=== PATIENT | female | born 1950 | race Caucasian/White ===

== ENCOUNTER → 2018-04-02 12:43 | Outpatient (CLI) | payer OTHER, SELFPAY | PROVIDERS: Family Provider Family Medicine; PCP Family Medicine; Visit Provider Family Medicine | DX: Z13.820 Encounter for screening for osteoporosis (principal); Z78.0 Asymptomatic menopausal state; M17.0 Bilateral primary osteoarthritis of knee; E11.9 Type 2 diabetes mellitus without complications; M06.9 Rheumatoid arthritis, unspecified | CPT/HCPCS: 77080 ==

== ENCOUNTER → 2018-05-25 13:48 | Outpatient (CLI) | payer OTHER, SELFPAY ==
[2018-05-25 14:36] LABS: Cholesterol 161 mg/dL (140-199); HDL Cholesterol 43 mg/dL (40-60); LDL Cholesterol Calculated 54 mg/dL (<100); Triglycerides 318 mg/dL (35-150)
== END ==
PROVIDERS: PCP Student in an Organized Health Care Education/Training Program; Visit Provider Student in an Organized Health Care Education/Training Program
DX: E11.42 Type 2 diabetes mellitus with diabetic polyneuropathy (principal)
CPT/HCPCS: 36415; 80061

== ENCOUNTER → 2018-08-25 11:24 | Outpatient (CLI) | payer OTHER, SELFPAY ==
[2018-08-25 12:48] LABS: Hemoglobin A1C% w Est Avg Glu 7.4 % (4.0-6.0)
[2018-08-25 17:20] LABS: Creatinine Urine Random 96.8 mg/dL
[2018-08-25 17:26] LABS: Microalbumi Creatinin Ratio Ur 53.7 ug/mg CR (<30); Microalbumin Urine Random 5.2 mg/dL (0-1.6)
[2018-08-25 17:37] LABS: Vitamin D 25 Hydroxy (D3) 22.4 ng/mL (30.0-100.0)
== END ==
PROVIDERS: PCP Student in an Organized Health Care Education/Training Program; Visit Provider Student in an Organized Health Care Education/Training Program
DX: E55.9 Vitamin D deficiency, unspecified (principal); E11.42 Type 2 diabetes mellitus with diabetic polyneuropathy
CPT/HCPCS: 36415; 82043; 82306; 82570; 83036

== ENCOUNTER → 2019-02-24 10:43 | Outpatient (CLI) | payer OTHER, SELFPAY ==
--- NOTE | 2019-02-24 10:45 | DI.RAD.S_ITS ---
PROCEDURE: XR HIP W PEL IF DONE RT 2V INDICATIONS: right hip pain TECHNIQUE: AP pelvis with lateral view(s) of the right hip(s). COMPARISON: None. FINDINGS: Bones: No fractures or dislocations. Pelvic ring appears intact. No suspicious bony lesions. Lower lumbar spondylosis. Moderate right hip joint degeneration, mild left hip joint degeneration. Soft tissues: The visualized bowel gas pattern is normal. No suspicious soft tissue calcifications. IMPRESSION: Moderate right hip degeneration. Dictated by: Ronnell Ding M.D. on 02/24/2019 at 13:43 Approved by: Ronnell Ding M.D. on 02/24/2019 at 13:45
== END ==
PROVIDERS: PCP Student in an Organized Health Care Education/Training Program; Visit Provider Student in an Organized Health Care Education/Training Program
DX: M25.551 Pain in right hip (principal); M16.11 Unilateral primary osteoarthritis, right hip
CPT/HCPCS: 73502

== ENCOUNTER → 2019-05-24 10:09 | Outpatient (CLI) | payer OTHER, SELFPAY ==
[2019-05-24 10:46] LABS: Hemoglobin A1C% w Est Avg Glu 7.7 % (4.0-6.0)
== END ==
PROVIDERS: PCP Student in an Organized Health Care Education/Training Program; Visit Provider Student in an Organized Health Care Education/Training Program
DX: E11.42 Type 2 diabetes mellitus with diabetic polyneuropathy (principal)
CPT/HCPCS: 36415; 83036

== ENCOUNTER → 2019-08-23 11:12 | Outpatient (CLI) | payer MEDICARE, SELFPAY ==
[2019-08-23 13:02] LABS: Hemoglobin A1C% w Est Avg Glu 8.5 % (4.0-6.0)
[2019-08-23 13:22] LABS: Blood Urea Nitrogen 29 mg/dL (7-17); Calcium 9.6 mg/dL (8.4-10.2); Carbon Dioxide 27 mmol/L (22-32); Chloride 97 mmol/L (98-107); Estimated Glomerular Filt Rate 55.3 mL/min (>60); Glucose 265 mg/dL (80-110); HEMOLYSIS < 15 (0-50); Potassium 4.8 mmol/L (3.4-5.1); Sodium 136 mmol/L (137-145)
== END ==
PROVIDERS: PCP Student in an Organized Health Care Education/Training Program; Referring Provider Student in an Organized Health Care Education/Training Program; Visit Provider Student in an Organized Health Care Education/Training Program
DX: E11.42 Type 2 diabetes mellitus with diabetic polyneuropathy (principal)
CPT/HCPCS: 36415; 80048; 83036

== ENCOUNTER → 2019-11-25 13:37 | Outpatient (CLI) | payer MEDICARE, SELFPAY ==
[2019-11-25 14:18] LABS: Hemoglobin A1C% w Est Avg Glu 7.7 % (4.0-6.0)
[2019-11-25 14:47] LABS: BUN Creatinine Ratio 33.3 (6-22); Blood Urea Nitrogen 40 mg/dL (7-17); Estimated Glomerular Filt Rate 44.8 mL/min (>60)
== END ==
PROVIDERS: PCP Student in an Organized Health Care Education/Training Program; Referring Provider Student in an Organized Health Care Education/Training Program; Visit Provider Student in an Organized Health Care Education/Training Program
DX: E11.21 Type 2 diabetes mellitus with diabetic nephropathy (principal); E11.42 Type 2 diabetes mellitus with diabetic polyneuropathy; E11.51 Type 2 diabetes mellitus with diabetic peripheral angiopathy without gangrene
CPT/HCPCS: 82565; 83036; 84520

== ENCOUNTER 2019-12-13 11:17 | Emergency (ER) | payer MEDICARE, SELFPAY ==
[2019-12-13 11:26] VITALS: BP 150/68; PULSE 75; RESP 14; TEMP 36.4; O2SAT 97
--- NOTE | 2019-12-13 18:50 | ED.NEUROSD ---
HPI - Neuro Symptoms/Deficit General Chief Complaint: Neuro Symptoms/Deficit Stated Complaint: droopy right face,pain left ear,lisp Time Seen by Provider: 12/13/19 11:18 Source: patient Mode of arrival: Ambulatory Limitations: no limitations History of Present Illness HPI Narrative: 69-year-old female never smoker with history of diabetes and morbid obesity presents with her daughter and a chief complaint of left-sided facial weakness with associated slurring of speech for the past 2 days. She denies any other focal neurologic complaints such as blurred vision, trouble with balance, numbness, weakness or tingling of her extremities. She denies any recent illness nor injury. She denies chest pain or shortness of breath. She denies nausea, vomiting or diarrhea. Onset (ago): day(s) Timing confirmed by: family member Location: speech and left face History of same: No Severity: mild Quality: numb and constant Relieving factors: none Exacerbating factors: none Context: gradual onset On Anticoagulants: No Associated symptoms: denies other symptoms Treatments Prior to Arrival: none Related Data Home Medications Medication Instructions Recorded Confirmed naproxen sodium 220 mg tablet 440 mg PO BEDTIME PRN tab 02/24/19 11/25/19 insulin lispro sliding scale SUBCUT 08/23/19 11/25/19 aspirin 81 mg tablet,delayed 81 mg PO DAILY 08/25/19 11/25/19 release Previous Rx's Medication Instructions Recorded omeprazole 20 mg capsule,delayed 20 mg PO Q DAY #90 cap 01/29/19 release sertraline 100 mg tablet 100 mg PO QDAY #90 tab 01/29/19 simvastatin 40 mg tablet 40 mg PO HS #90 tab 01/29/19 insulin lispro 100 unit/mL 30 unit SUBCUT QAC #30 day 02/10/19 subcutaneous pen metformin 850 mg tablet 850 mg PO BID #180 tab 04/18/19 metoprolol tartrate 50 mg tablet 50 mg PO BID #180 tab 05/24/19 losartan 100 1 tab PO QDAY #90 tab 06/02/19 mg-hydrochlorothiazide 25 mg tablet Basaglar pen needles #100 each 07/18/19 One Touch Ultra test strips #100 each 07/19/19 insulin NPH isoph U-100 human 100 See Rx Instructions SUBCUT BID #15 09/27/19 unit/mL (3 mL) subcutaneous pen ml gabapentin 300 mg capsule 600 mg PO TID #180 cap 11/14/19 albuterol sulfate 90 mcg/actuation 2 puff INHALATION Q4-6H PRN #6.7 11/25/19 aerosol inhaler gram prednisone See Rx Instructions .ROUTE 12/13/19 .COMPLEX #30 tab Allergies Allergy/AdvReac Type Severity Reaction Status Date / Time AMANUEL Inhibitors Allergy Mild Cough Verified 11/25/19 13:01 [AMANUEL INHIBITORS] cat dander [CAT DANDER] Allergy Unknown Verified 11/25/19 13:01 dog dander [DOG DANDER] Allergy Unknown Verified 11/25/19 13:01 Review of Systems Constitutional Constitutional: Denies chills, Denies fatigue, Denies fever(s), Denies frequent falls, Denies lethargy and Denies weakness Eyes Eyes: Denies change in vision, Denies eye discharge, Denies irritation and Denies loss of vision ENT Ears, Nose, Mouth, and Throat: Denies change in voice, Denies dizziness, Denies neck pain, Denies sore throat and Denies throat swelling Cardiovascular Cardiovascular: Denies chest pain, Denies irregular heart rhythm, Denies lightheadedness, Denies palpitations, Denies dyspnea, Denies dyspnea on exertion and Denies orthopnea Respiratory Respiratory: Denies cough, Denies dyspnea, Denies dyspnea on exertion and Denies wheezing Gastrointestinal Gastrointestinal: Denies abdominal pain, Denies change in bowel habits, Denies diarrhea, Denies nausea and Denies vomiting Genitourinary Genitourinary: Denies hematuria, Denies flank pain, Denies urinary incontinence and Denies urinary urgency Musculoskeletal Musculoskeletal: Denies back pain, Denies muscle weakness, Denies neck pain, Reports numbness and Reports tingling Integumentary/Breasts Skin/Breast: Denies pruritus, Denies erythema, Denies rash and Denies wounds Neurologic Neurologic: Denies behavioral changes, Denies confusion, Denies dizziness, Denies frequent falls, Reports focal weakness, Denies loss of vision, Reports numbness, Reports tingling and Denies weakness Psychiatric Psychiatric: Denies anxiety, Denies behavioral changes, Denies confusion, Denies depression, Denies homicidal ideation and Denies suicidal ideation Endocrine Endocrine: Denies fatigue, Denies flushing and Denies palpitations Hematologic/Lymphatic Hematologic/Lymphatic: Denies easy bruising Allergic/Immunologic Allergic/Immunologic: Denies urticaria, Denies throat swelling and Denies wheezing Patient History Medical History (Updated 12/13/19 @ 11:28 by Reyes Nolasco DO) Anemia (Chronic) Ankle pain (Chronic) Anxiety (Chronic) Asthma (Chronic) Astigmatism, bilateral (Chronic) Bronchitis (Resolved) Cataracts, bilateral (Chronic) Chicken pox (Resolved) Chronic back pain (Chronic) Colon polyps (Resolved 2012) Constipation (Chronic) Depression (Chronic) Diabetes mellitus (Chronic) DVT (deep venous thrombosis) (Resolved) Foot pain (Chronic) GERD (gastroesophageal reflux disease) (Chronic) Hearing loss (Chronic ~2016) Hyperlipidemia (Chronic) Hypertension (Chronic) Migraines (Chronic) Mumps (Resolved) Obesity (Chronic) Osteoarthritis (Chronic) Otitis externa (Resolved) Pernicious anemia (Chronic) Post traumatic stress disorder (PTSD) (Chronic) Presbyopia (Chronic) Recurrent sinusitis (Resolved) Right knee pain (Chronic) RLS (restless legs syndrome) (Chronic) Sleep apnea (Chronic) Synovial cyst of popliteal space [Mancera], left knee (Chronic) Vertigo (Chronic) Vision disorder (Chronic) Surgical History (Updated 05/27/18 @ 21:50 by Lisa Moss) History of arthroscopy of left knee (Resolved) History of colonoscopy with polypectomy (Resolved 03/09/13) History of colonoscopy with polypectomy (Resolved 11/04/16) History of hysterectomy (Resolved ~1993) Status post epidural steroid injection (Resolved 06/23/16) Status post epidural steroid injection (Resolved 01/12/12) Status post epidural steroid injection (Resolved 02/20/12) Family History (Updated 05/27/18 @ 21:48 by Lisa Moss) Mother Diabetes mellitus Heart disease Hyperlipidemia Hypertension Sister Diabetes mellitus Heart disease Hyperlipidemia Hypertension Mental health problem Social History Smoking Status: Never smoker Smoking Status: Never smoker Substance Use Type: does not use Exam Narrative Exam Narrative: GENERAL: [69] year old patient appears stated age. Well-nourished, well-developed patient, in mild distress. HEAD: Atraumatic. Normocephalic. EYES: Pupils equal round and reactive. Extraocular motions intact. No scleral icterus. No injection or drainage. ENT: Nose without bleeding, purulent drainage. Throat without erythema, tonsillar hypertrophy or exudate. Airway patent. Tenderness to palpation of left mastoid NECK: Trachea midline. Non tender CARDIOVASCULAR: Regular rate and rhythm without murmurs, gallops, or rubs. RESPIRATORY: Clear to auscultation. Breath sounds equal bilaterally. No wheezes, rales, or rhonchi. GASTROINTESTINAL: Abdomen soft, non-tender, nondistended. EXTREMITIES: No edema or joint tenderness. BACK: Nontender without deformity or crepitance. No flank tenderness. NEURO: AOx3. SKIN: No rash or erythema of visible areas Initial Vital Signs Initial Vital Signs: Vital Signs Temperature 97.6 F 12/13/19 11:26 Pulse Rate 75 12/13/19 11:26 Respiratory Rate 14 12/13/19 11:26 Blood Pressure 150/68 H 12/13/19 11:26 Pulse Oximetry 97 12/13/19 11:26 Scores NIH Stroke Scale Level of Conciousness: Alert, keenly responsive Ask month/age: Answers both questions correctly. Open/close eyes, close hand: Performs both tasks correctly Best gaze horizontal: Normal Visual magaña: No visual loss Facial palsy: Complete paralysis, absence of movement in the upper and lower face Left arm drift: No drift for full 10 sec Right arm drift: No drift for full 10 sec Left leg drift: No drift for full 10 sec Right leg drift: No drift for full 10 sec Limb ataxia: Absent Sensory on face/arms/legs: Normal, no sensory loss Best language: No aphasia, normal Dysarthria: Mild to mod,some slurring Extinction or inattention: No abnormality Total NIH Stroke scale score: 4 Course Vital Signs Vital signs: Vital Signs - 8 hr 12/13/19 11:26 Temperature 97.6 F Pulse Rate 75 Respiratory Rate 14 Blood Pressure 150/68 H Pulse Oximetry 97 MDM - Neuro Symptoms/Deficit [facility] Narrative Medical decision making narrative: Considerations include stroke vs. [place] vs. other. Left facial droop with involvement of forehead and periauricular pain. Lack of upper motor neuron findings. Discussed potential prison findings despite treatment. Return precautions given. Questions answered to her apparent satisfaction. Discharge Plan Departure Patient Disposition: Home Clinical Impression: Amos's palsy Discharge Date/Time: 12/13/19 11:42 Instructions: Amos Palsy Activity Restrictions/Additional Instructions: *You have been diagnosed with [facial complications of Amos's palsy] *What to do: *Take medications as directed: Prescription for steroid sent to [facility] in [place] *Follow up with your primary care provider in 2-3 days, call for an appointment. Let them know you were seen in the Emergency Department and that we ask that you be seen in follow up *Return to ER if you should have any new, worsening or concerning symptoms Prescriptions: New prednisone 10 mg tablet See Rx Instructions .ROUTE .COMPLEX Qty: 30 RF: 0 No Action sertraline [Zoloft] 100 mg tablet 100 mg PO QDAY Qty: 90 RF: 3 simvastatin [Zocor] 40 mg tablet 40 mg PO HS Qty: 90 RF: 3 omeprazole 20 mg capsule,delayed release(DR/EC) 20 mg PO Q DAY Qty: 90 RF: 3 insulin lispro [Humalog KwikPen Insulin] 100 unit/mL insulin pen 30 unit SUBCUT QAC Qty: 30 RF: 5 metformin 850 mg tablet 850 mg PO BID Qty: 180 RF: 3 losartan-hydrochlorothiazide 100-25 mg tablet 1 tab PO QDAY Qty: 90 RF: 3 (DME) Basaglar pen needles 31G X 8MM (11/25) See Rx Instructions .Route .MEDSUPPLY Qty: 100 RF: 1 (DME) One Touch Ultra test strips Qty: 100 RF: 5 aspirin 81 mg tablet,delayed release (DR/EC) 81 mg PO DAILY RF: 0 Humulin N NPH Insulin KwikPen 100 unit/mL (3 mL) insulin pen See Rx Instructions SUBCUT BID Qty: 15 RF: 5 gabapentin [Neurontin] 300 mg capsule 600 mg PO TID Qty: 180 RF: 5 metoprolol tartrate 50 mg tablet 50 mg PO BID Qty: 180 RF: 3 insulin lispro sliding scale subcut RF: 0 albuterol sulfate [Proventil HFA] 90 mcg/actuation HFA aerosol inhaler 2 puff inhalation Q4-6H PRN (Reason: shortness of breath or wheezing) Qty: 6.7 RF: 11 naproxen sodium [Aleve] 220 mg tablet 440 mg PO BEDTIME PRNRF: 0 Referrals: Wilfredo Zazueta MD [Primary Care Provider] -
== END 2019-12-13 11:42 | disposition home or self-care (01) ==
PROVIDERS: Emergency Provider Emergency Medicine; PCP Student in an Organized Health Care Education/Training Program
DX: G51.0 Bell's palsy (principal)
CPT/HCPCS: 99281

== ENCOUNTER → 2020-02-14 13:24 | Outpatient (CLI) | payer MEDICARE, SELFPAY ==
[2020-02-14 14:50] LABS: Hematocrit 34.2 % (36-46); Hemoglobin 11.1 g/dL (12.0-16.0); Mean Corpuscular HGB Conc 32.6 % (30-36); Mean Corpuscular Hemoglobin 28.2 PG (26-34); Mean Corpuscular Volume 86.6 fL (80-100); Platelet Count 232 X10^3/uL (150-400); Red Blood Cell Count 3.95 X10^6/uL (4.0-5.2); Red Cell Distribution Width 15.9 % (11.6-14.8)
[2020-02-14 15:09] LABS: Hemoglobin A1C% w Est Avg Glu 6.5 % (4.0-6.0)
[2020-02-14 15:41] LABS: BUN Creatinine Ratio 32.1 (6-22); Blood Urea Nitrogen 35 mg/dL (7-17); Calcium 10.4 mg/dL (8.4-10.2); Carbon Dioxide 29 mmol/L (22-32); Chloride 99 mmol/L (98-107); Estimated Glomerular Filt Rate 49.9 mL/min (>60); Glucose 75 mg/dL (80-110); HEMOLYSIS < 15 (0-50); Potassium 5.1 mmol/L (3.4-5.1); Sodium 138 mmol/L (137-145)
[2020-02-14 15:42] LABS: Creatinine Urine Random 90.7 mg/dL
[2020-02-14 15:45] LABS: Microalbumi Creatinin Ratio Ur 41.8 ug/mg CR (<30); Microalbumin Urine Random 3.8 mg/dL (0-1.6)
[2020-02-14 15:56] LABS: Vitamin D 25 Hydroxy (D3) 24.3 ng/mL (30.0-100.0)
== END ==
PROVIDERS: PCP Student in an Organized Health Care Education/Training Program; Referring Provider Student in an Organized Health Care Education/Training Program; Visit Provider Student in an Organized Health Care Education/Training Program
DX: E11.21 Type 2 diabetes mellitus with diabetic nephropathy (principal); E11.42 Type 2 diabetes mellitus with diabetic polyneuropathy; I10 Essential (primary) hypertension
CPT/HCPCS: 36415; 80048; 82043; 82306; 82570; 83036; 85027

== ENCOUNTER → 2020-05-23 15:36 | Outpatient (CLI) | payer MEDICARE, SELFPAY ==
[2020-05-23 16:18] LABS: Hemoglobin A1C% w Est Avg Glu 7.2 % (4.0-6.0)
[2020-05-23 16:21] LABS: BUN Creatinine Ratio 26.4 (6-22); Blood Urea Nitrogen 29 mg/dL (7-17); Estimated Glomerular Filt Rate 49.4 mL/min (>60)
== END ==
PROVIDERS: PCP Student in an Organized Health Care Education/Training Program; Referring Provider Student in an Organized Health Care Education/Training Program; Visit Provider Student in an Organized Health Care Education/Training Program
DX: E11.21 Type 2 diabetes mellitus with diabetic nephropathy (principal); E11.42 Type 2 diabetes mellitus with diabetic polyneuropathy; E55.9 Vitamin D deficiency, unspecified
CPT/HCPCS: 36415; 82306; 82565; 83036; 84520

== ENCOUNTER → 2020-09-10 09:54 | Outpatient (CLI) | payer MEDICARE, SELFPAY ==
[2020-09-10 11:27] LABS: Hemoglobin A1C% w Est Avg Glu 6.7 % (4.0-6.0)
[2020-09-10 11:28] LABS: BUN Creatinine Ratio 27.7 (6-22); Blood Urea Nitrogen 31 mg/dL (7-17); Estimated Glomerular Filt Rate 48.4 mL/min (>60)
[2020-09-10 11:51] LABS: Vitamin D 25 Hydroxy (D3) 28.7 ng/mL (30.0-100.0)
== END ==
PROVIDERS: PCP Student in an Organized Health Care Education/Training Program; Referring Provider Student in an Organized Health Care Education/Training Program; Visit Provider Student in an Organized Health Care Education/Training Program
DX: E11.42 Type 2 diabetes mellitus with diabetic polyneuropathy (principal); N18.31 Chronic kidney disease, stage 3a; E55.9 Vitamin D deficiency, unspecified
CPT/HCPCS: 36415; 82306; 82565; 83036; 84520

== ENCOUNTER → 2020-12-17 11:12 | Outpatient (CLI) | payer MEDICARE, SELFPAY ==
--- NOTE | 2020-12-17 11:47 | DI.RAD.S_ITS ---
PROCEDURE: XR SHOULDER RT MIN 2V INDICATIONS: H/o remote injury, ongoing pain TECHNIQUE: 3 views of the shoulder were acquired. COMPARISON: None. FINDINGS: Bones: There are degenerative changes of the right acromioclavicular joint. Soft tissues: No suspicious soft tissue calcifications. IMPRESSION: Degenerative changes of the right acromioclavicular joint. No acute abnormality. Consider MRI if symptoms persist. Dictated by: Garrett Shepherd M.D. on 12/17/2020 at 12:26 Approved by: Garrett Shepherd M.D. on 12/17/2020 at 12:28
[2020-12-17 12:23] LABS: Add Manual Diff / Slide Review NO; Basophils Absolute Auto 0 /uL (0-100); Basophils Percent Auto 0.3 % (0-2); Eosinophils Absolute Auto 200 /uL (0-450); Eosinophils Percent Auto 3.9 % (2-4); Hematocrit 32.3 % (36-46); Hemoglobin 10.6 g/dL (12.0-16.0); Lymphocytes Absolute Auto 1200 /uL (1100-4500); Lymphocytes Percent Auto 22.2 % (25-40); Mean Corpuscular HGB Conc 32.9 % (30-36); Mean Corpuscular Hemoglobin 28.6 PG (26-34); Mean Corpuscular Volume 86.8 fL (80-100); Monocytes Absolute Auto 200 /uL (0-900); Monocytes Percent Auto 4.5 % (3-14); Neutrophils Absolute Auto 3800 /uL (1500-7000); Neutrophils Percent Auto 69.1 % (50-75); Platelet Count 203 X10^3/uL (150-400); Red Blood Cell Count 3.72 X10^6/uL (4.0-5.2); Red Cell Distribution Width 14.8 % (11.6-14.8); White Blood Cell Count 5.5 X10^3/uL (4.5-11.0)
[2020-12-17 12:38] LABS: BUN Creatinine Ratio 30.3 (6-22); Blood Urea Nitrogen 36 mg/dL (7-17); Estimated Glomerular Filt Rate 45.1 mL/min (>60)
[2020-12-17 13:20] LABS: TSH w/ Reflex to FT4 1.92 uIU/mL (0.47-4.68)
[2020-12-17 13:25] LABS: Vitamin B12 213 pg/mL (239-931)
[2020-12-17 15:36] LABS: Vitamin D 25 Hydroxy (D3) 35.6 ng/mL (30.0-100.0)
== END ==
PROVIDERS: PCP Student in an Organized Health Care Education/Training Program; Referring Provider Student in an Organized Health Care Education/Training Program; Visit Provider Student in an Organized Health Care Education/Training Program
DX: E11.42 Type 2 diabetes mellitus with diabetic polyneuropathy (principal); N18.31 Chronic kidney disease, stage 3a; R53.83 Other fatigue; E55.9 Vitamin D deficiency, unspecified; M12.811 Other specific arthropathies, not elsewhere classified, right shoulder
CPT/HCPCS: 36415; 73030; 82306; 82565; 82607; 83036; 84443; 84520; 85025

== ENCOUNTER → 2020-12-31 12:36 | Outpatient (CLI) | payer MEDICARE, SELFPAY ==
--- NOTE | 2020-12-31 12:37 | DI.US.S_ITS ---
LIMITED ULTRASOUND OF RIGHT BREAST AND AXILLA: 12/31/2020 CLINICAL: Palpable right breast lump. Comparison is made to exams dated: 12/31/2020 mammogram - [facility], 04/09/2017 mammogram, and 07/10/2011 mammogram - outside location. Color flow and real-time ultrasound of the right breast 9-10 o'clock, and axilla regions were performed on the areas of interest. There is a 3 cm x 2.8 cm x 2.3 cm oval mass with a microlobulated, angular, and spiculated margin in the right breast at 10 o'clock middle depth. This oval mass is hypoechoic with posterior acoustic shadowing. This correlates as palpated and with mammography findings. There are related micro calcifications. Color flow imaging demonstrates that there is vascularity present. No suspicious enlarged lymph nodes were seen sonographically in the right axilla. IMPRESSION: HIGHLY SUGGESTIVE OF MALIGNANCY The 3 cm x 2.8 cm x 2.3 cm oval mass in the right breast is highly suggestive of malignancy. An ultrasound guided biopsy is recommended. The findings were discussed with the patient by telephone at the conclusion of the study. This exam was interpreted at Station ID: [id number]. Electronically Signed By: Dereck Pringle M.D. ddadriel/:12/31/2020 16:00:52 letter sent: Biopsy Required Ultrasound BI-RADS: 5 Highly suggestive of malignancy
--- NOTE | 2020-12-31 12:37 | DI.MG.S_ITS ---
BILATERAL DIGITAL DIAGNOSTIC MAMMOGRAM 3D/2D: 12/31/2020 CLINICAL: Right mass. Comparison is made to exams dated: 04/09/2017 mammogram, 07/10/2011 mammogram, and 01/22/2010 mammogram - outside location. There are scattered fibroglandular elements in both breasts. There is a new 3.4 cm oval high density mass with a spiculated, indistinct, and microlobulated margin and grouped linear fine punctate calcifications in the right breast at 9 o'clock middle depth. There also is an oval fat containing lymph node with eccentric cortical thickening with an indistinct and circumscribed margin in the right axilla seen on the mediolateral oblique view only. No other significant masses, calcifications, or other findings are seen in either breast. IMPRESSION: INCOMPLETE: NEEDS ADDITIONAL IMAGING EVALUATION The new 3.4 cm oval high density mass in the right breast at 9 o'clock middle depth is indeterminate. An ultrasound is recommended. The oval fat containing lymph node with eccentric cortical thickening in the right axilla on seen on the mediolateral oblique view only is indeterminate. An ultrasound is recommended. Ultrasound will be performed immediately following the current exam. This exam was interpreted at Station ID: [id number]. NOTE: For mammograms, a report in lay terms will be sent to the patient. Approximately 15% of breast malignancies will not be visualized mammographically. In the management of a palpable breast mass, a negative mammogram must not discourage biopsy of a clinically suspicious lesion. Electronically Signed By: Dereck Pringle M.D. ddp/:12/31/2020 13:24:36 ACR BI-RADS Category 0: Incomplete [id number]
== END ==
PROVIDERS: PCP Student in an Organized Health Care Education/Training Program; Referring Provider Student in an Organized Health Care Education/Training Program; Visit Provider Student in an Organized Health Care Education/Training Program
DX: R92.8 Other abnormal and inconclusive findings on diagnostic imaging of breast (principal); N63.15 Unspecified lump in the right breast, overlapping quadrants; R92.1 Mammographic calcification found on diagnostic imaging of breast
CPT/HCPCS: 76642; 77066; G0279

== ENCOUNTER → 2021-01-11 14:03 | Outpatient (CLI) | payer MEDICARE, SELFPAY ==
--- NOTE | 2021-01-11 | PATH_ITS ---
[facility] Accession Number: [id number] . 01 Material submitted: . breast - RIGHT BREAST MASS 10:00 8CMFN . 02 Diagnosis: Right Breast Mass, 10 o'clock, 8 cm from Nipple, Image-Guided Needle Core Biopsy: Invasive carcinoma of the breast. . CASE SUMMARY: Procedure: Needle biopsy. Specimen laterality: Right. Tumor site: Upper outer quadrant (10 o'clock, 8 cm from nipple). Histologic type: Invasive carcinoma of no special type (ductal by e-cadherin immunohistochemistry). Histologic grade: Glandular: Score 3 of 3. Nuclear pleomorphism: Score 3 of 3. Mitotic rate: Score 3 of 3. Overall grade: Grade 3 / high grade. Tumor size: Greatest dimension of largest invasive focus greater than 1 mm: 4 mm. Ductal carcinoma in situ. Lymphovascular invasion: Not identified. Microcalcifications: No identified. Additional findings: Necrosis present. Breast biomarker studies: Please see microscopic description. V 01/17/2021 1207 Local . 02 Comment: As part of routine aircraft quality control inspector, this case was also reviewed by Dr. Antoine, who agrees with the interpretation. . Results discussed with Dr. Zazueta's triage nurse, Jeri, on 01-17-21 at approximately 10:41 a.m. . 02 Electronically signed: . Jenny Cho MD, Pathologist NPI- [id number] . 01 Gross description: . RIGHT BREAST MASS 10:00 8CMFN: Received in formalin are multiple fragment(s) of pack, soft tissue measuring 2.8 x 0.3 x 0.2 cm in aggregate submitted entirely in 1 cassette(s) /[facility] 01/14/2021 0923 Local . 02 Microscopic: . Immunohistochemical studies are performed to further evaluate the cells of interest. The control stains showed appropriate reactivity. . RESULTS: E-cadherin - Strongly positive, consistent with ductal differentiation. . Smooth muscle myosin: Absent in regions of interest. P63: Absent in regions of interest. . The absence of myosin and p63 in the regions of interest support the presence of invasive carcinoma at these foci. . . CAP BREAST BIOMARKER REPORTING TEMPLATE: . Estrogen Receptor (ER) Status: Negative (less than 1 %). Note: No internal controls are present in the biopsy, but external controls are appropriately positive. If needed, testing another specimen that contains internal controls may be warranted for confirmation of ER status. Average intensity of staining: Not applicable. Primary antibody: SP1 Progesterone Receptor (PgR) Status: Negative (less than 1 %). Average intensity of staining: Not applicable. Primary antibody: 1E2 HER2 (by immunohistochemistry): Negative at 0+. Percentage of cells with uniform intense complete membrane stainin%. Primary antibody: 4B5 . Cold Ischemia and Fixation Times: Meets requirements in the latest version of the ASCO/CAP guidelines. Testing performed on Block Number: . TECHNICAL NOTE: The scoring criteria for breast biomarkers by immunohistochemistry is based on the current ASCO/CAP guidelines (Deepak et al, Arch Pathol Lab Med 2010: 134(6): 907-922 / Basilia BARBER et al, Arch Pathol Lab Med 2014: 138(2):241-256). Deparaffinized sections of formalin fixed tissue (along with appropriate positive controls) are incubated with the above antibody(s). Using the automated Dozier stainer, tissue is incubated with the designated antibody* which is then localized by a non-biotin, dual polymer detection system. The external controls are reviewed for appropriate reactivity and found to be adequate. Results on the target cell population are indicated above. These tests have not been validated on decalcified tissue. * This test was developed and its performance characteristics determined by [employer]. It has not been cleared or approved by the U.S. Food and Drug Administration. The FDA has determined that such clearance or approval is not necessary. This test is used for clinical purposes. It should not be regarded as investigational or for research. . 02 Pathologist provided ICD-10: C50.911 . 02 CPT . 183818, 961229, 275032, 097901, W99630, D36310 Performed at: 01 [facility] [address] [place] [address], [place], [place] [id number] MD Dereck Alejo MD Phone: [phone] Performed at: [address] [facility] [id number] [place], [place] [id number] MD Jory Antoine MD Phone: [phone]
--- NOTE | 2021-01-11 | DI.MG.S_ITS ---
UNILATERAL RIGHT DIGITAL DIAGNOSTIC MAMMOGRAM 3D/2D: 01/11/2021 CLINICAL: Right post clip. Comparison is made to exams dated: 12/31/2020 ultrasound, 12/31/2020 mammogram - [facility], and 04/09/2017 mammogram - outside location. There are scattered fibroglandular elements in right breast. There is a marker clip in the appropriate position in the right breast at 10 o'clock .This marker clip placement is at the biopsy site. IMPRESSION: POST PROCEDURE MAMMOGRAM FOR MARKER PLACEMENT There was a successful marker clip placement in the right breast This exam was interpreted at Station ID: [id number]. NOTE: For mammograms, a report in lay terms will be sent to the patient. Approximately 15% of breast malignancies will not be visualized mammographically. In the management of a palpable breast mass, a negative mammogram must not discourage biopsy of a clinically suspicious lesion. Electronically Signed By: Ronnell rosenthal/:01/11/2021 16:24:32 ACR BI-RADS Category Post-procedure mammogram for marker placement
--- NOTE | 2021-01-11 14:22 | DI.US.S_ITS ---
At the request of: SUKH COBB Procedure: US bx breast perc w vac device ULTRASOUND GUIDED BIOPSY RIGHT BREAST USING VACUUM DEVICE WITH MARKING DEVICE INSERTED: 01/11/2021 CLINICAL: Right breast mass. PATIENT CONSENT: Risks (minor bleeding, infection, vasovagal reaction and repeat procedure), benefits and alternatives were explained to the patient and written informed consent was obtained. Correlation is made to exams dated: 12/31/2020 ultrasound, 12/31/2020 mammogram - [facility], 04/09/2017 mammogram, 07/10/2011 mammogram, and 01/22/2010 mammogram - outside location. An ultrasound guided biopsy using real-time ultrasound was performed for the mass located in the right breast at 10 o'clock middle depth. The skin was prepped in the usual manner. Local anesthetic was administered to the access site. A small incision was made in the breast. The abnormality was approached from the lateral aspect. A biopsy needle was placed adjacent to the abnormality under ultrasound guidance. Once the needle was documented to be in the correct location, six specimens were obtained using the Mammotome biopsy system. A clip was inserted into the biopsy cavity. The specimens were sent to the laboratory for pathological analysis. IMPRESSION: ULTRASOUND GUIDED BIOPSY MALIGNANT Ultrasound guided biopsy of the mass in the right breast at 10 o'clock was successful. 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 Pathology results are concordant with mammography and ultrasound findings. Surgical and oncologic consultation are recommended. This exam was interpreted at Station ID: [id number]. Ronnell rosenthal,elpidio/:01/21/2021 11:34:51
== END ==
PROVIDERS: PCP Student in an Organized Health Care Education/Training Program; Referring Provider Student in an Organized Health Care Education/Training Program; Visit Provider Student in an Organized Health Care Education/Training Program
DX: C50.411 Malignant neoplasm of upper-outer quadrant of right female breast (principal); Z17.1 Estrogen receptor negative status [ER-]
CPT/HCPCS: 19083; 77065

== ENCOUNTER → 2021-02-05 10:03 | Outpatient (CLI) | payer MEDICARE, SELFPAY ==
[2021-02-05 10:59] LABS: COVID19 -Nasal RAPID Negative (Negative)
== END ==
PROVIDERS: PCP Student in an Organized Health Care Education/Training Program; Visit Provider Specialist
DX: Z20.822 Contact with and (suspected) exposure to COVID-19 (principal)
CPT/HCPCS: 87635; C9803

== ENCOUNTER → 2021-02-07 11:57 | Outpatient (CLI) | payer MEDICARE, SELFPAY ==
--- NOTE | 2021-02-07 11:59 | DI.CT.S_ITS ---
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 1 mm lung window, 5 mm thick coronal and sagittal and 7 mm axial MIP reformats were then acquired. For radiation dose reduction, the following was used: automated exposure control, adjustment of mA and/or kV according to patient size. COMPARISON: [facility], , BREAST RT LIMITED, 12/31/2020, 12:26. FINDINGS: Image quality: Excellent. Lungs and pleura: No acute air space opacities. Very mild pulmonary fibrosis with a bibasilar predominance, right greater than left. No pleural effusions or pneumothorax. Central and peripheral airways are patent and normal in caliber. Mediastinum: Heart size is normal. No pericardial effusion. No mediastinal adenopathy by size criteria. Thoracic aorta and central pulmonary arteries are normal in size. Esophagus is normal in caliber. No hiatal hernia. Bones and chest wall: No suspicious bony lesions. No vertebral body compression fractures. At T5-T6, there is a calcified central posterior disc protrusion which indents on the cord. There is also posterior ligamentous hypertrophy. These contribute to mild canal stenosis. No axillary or supraclavicular adenopathy by size criteria. Thyroid gland is unremarkable as visualized . Right breast mass with breast clips from previous ultrasound-guided biopsy. Abdomen: Visualized upper abdominal solid organs and bowel loops appear normal in the absence of contrast. IMPRESSION: 1. Known right breast mass. 2. No evidence of metastatic disease in the chest. 3. Very mild pulmonary interstitial fibrosis. 4. Incidental note made of chronic calcified disc protrusion at T5-T6 contributing to mild canal stenosis. Dictated by: Miguel Moss M.D. on 02/07/2021 at 14:19 Approved by: Miguel Moss M.D. on 02/07/2021 at 14:25
--- NOTE | 2021-02-07 11:59 | DI.MRI.S_ITS ---
BREAST MRI OF BOTH BREASTS- WITH CAD: 02/07/2021 CLINICAL: Right breast cancer. Comparison is made to exams dated: 01/11/2021 mammogram, 01/11/2021 ultrasound biopsy, 12/31/2020 ultrasound, and 12/31/2020 mammogram - [facility]. Interpretation of this MRI was correlated with available mammograms and ultrasounds. Informed consent was obtained from the patient. 20 cc of ProHance (Gadoteridol) nonionic contrast was injected. Axial T1, T2, sagittal T1, and pre and post contrast T1 images were obtained with a dedicated breast MRI. Post processing was performed including computer aided calculations of any tumor volumes and dimensions. There is mild background parenchymal enhancement. Right breast: Within the lateral right breast centered at the 2 to 3 o'clock position at middle to posterior 3rd in depth, there is an oval lobulated mass measuring up to 4.3 x 3.3 x 3.2 cm in dimension. There are spiculated margins and nodular peripheral enhancement. Internal T2 hyperintensity with relative non enhancement likely reflects internal necrosis. There is an associated biopsy marker in the mass. Kinetic enhancement curves demonstrate rapid initial enhancement with washout. There is a small adjacent enhancing satellite nodule along the inferolateral aspect of the mass measuring up to approximately 0.5 x 0.6 x 0.6 cm and by approximately 0.2-0.3 cm from the primary mass. No evidence of chest wall or skin extension. Elsewhere within the right breast, no definite discrete mass or suspicious enhancement identified to suggest additional foci of disease. Left breast: No discrete mass or suspicious enhancement within the left breast to suggest malignancy. Miscellaneous: There is eccentric cortical thickening demonstrated within a right level 1 axillary lymph node measuring up to 0.6 cm. This demonstrates a preserved fatty hilum. No evidence of internal mammary or left axillary lymphadenopathy. IMPRESSION: KNOWN BIOPSY PROVEN MALIGNANCY 1. Lobulated peripherally enhancing centrally necrotic mass within the lateral right breast demonstrated corresponding to the patient's biopsy-proven malignancy. 2. Additional small satellite nodule adjacent to the inferolateral aspect of the mass. 3. Elsewhere, no evidence of multicentric disease in the right breast or contralateral disease in the left breast. 4. Slight eccentric cortical thickening of a right axillary lymph node. The finding is nonspecific but metastatic disease cannot be excluded. Consider a second-look ultrasound with lymph node biopsy if clinically indicated. This exam was interpreted at Station ID: [id number]. Electronically Signed By: Dereck Pringle M.D. ddp/:02/07/2021 16:04:24 ACR BI-RADS Category 6: Known biopsy proven malignancy [id number]
--- NOTE | 2021-02-07 11:59 | DI.ECHO.S_ITS ---
[facility] +---------+ : : [address] : : : : [id number] : : : : Phone: [phone]+ Echocardiogram Report + + :Name: MARGRET ARMANDO Study Date: 02/07/2021 Height: 61.5 in: :[facility] ReadingLocation: Weight: 281 lb : : Gender: Female BSA: 2.2 m2 : :: 1950 Age: 71 yrs BP: 122/66 mmHg: :Reason For Study: PRE-CHEMOTHERAPY EVALUATION : :Ordering Physician: CHA : :JENI Performed By: Funmilayo Lira : :Referring: JENI EUBANKS : + + Interpretation Summary The ejection fraction is estimated to be 60-65%. There is no significant valvular heart disease. Procedure: A two-dimensional transthoracic echocardiogram with color flow and Doppler was performed. The study quality was technically adequate. There is no prior echocardiogram noted for this patient. The patient was in sinus rhythm with heart rates between 62-67 bpm during the exam. Left Ventricle: The left ventricle is normal in size and wall thickness. The ejection fraction is estimated to be 60-65%. Left ventricular wall motion is normal. Right Ventricle: The right ventricle is normal in size and function. Atria: The left atrium is mildly dilated. Right atrial size is normal. There is no Doppler evidence for an interatrial shunt. Mitral Valve: The mitral valve leaflets appear mildly thickened, but open well. There is trace mitral regurgitation. Aortic Valve: There is mild aortic valve sclerosis. The peak aortic velocity is 2.06 m/sec. The aortic valve mean gradient is 8.5 mmHg. The calculated aortic valve area is 1.8 cm2. No aortic regurgitation is present. Tricuspid Valve: The tricuspid valve is normal in structure and function. There is trace tricuspid regurgitation. Pulmonary artery pressures cannot be estimated because of the lack of a measurable TR jet velocity but the IVC suggests a CVP of around 3 mmHg. Pulmonic Valve: The pulmonic valve is not well seen, but is grossly normal. There is trace pulmonic regurgitation. Great Vessels: The aortic root is normal size. The dimensions of the ascending aorta are normal. The IVC is of normal diameter and collapses greater than 50% with a sniff. This suggests a low right atrial pressure of 3 mm Hg. Pericardium/ Pleura There is no pericardial effusion. There is no pleural effusion. MMode/2D Measurements & Calculations LVIDd: 5.2 cm LVOT diam: 2.0 cm LVIDs: 3.6 cm Ao root diam: 2.5 cm FS: 30.1 % asc Aorta Diam: 3.2 cm IVSd: 0.97 cm Ao Arch Diam (Prox Trans): 2.9 cm LVPWd: 0.81 cm LV lala. diameter/BSA (cm/m^2): 2.4 LV sys. diameter/BSA (cm/m^2): 1.6 LA A2 area: 25.2 cm2 RA long axis: 5.9 cm LA A4 area: 24.0 cm2 RA area: 19.7 cm2 LA length (vol): 6.6 cm RA vol: 56.3 ml LA vol: 77.7 ml RA : 25.7 ml/m2 LA vol index: 35.4 ml/m2 IVC diam: 1.2 cm RVD1 (basal): 3.8 cm TAPSE: 1.8 cm Doppler Measurements & Calculations Ao V2 max: 206.1 cm/sec LVOT Max Dre: 116.2 cm/sec Ao V2 mean: 135.5 cm/sec LV V1 max P.4 mmHg Ao max P.0 mmHg LV V1 VTI: 26.9 cm Ao mean P.5 mmHg RENETTA(I,D): 2.0 cm2 Ao V2 VTI: 43.3 cm RENETTA(V,D): 1.8 cm2 sev ratio: 0.62 RENETTA indexed to BSA (cm^2/m^2): 0.90 MV E max dre: 103.5 cm/sec PA V2 max: 123.1 cm/sec MV A max dre: 107.9 cm/sec PA V2 mean: 86.4 cm/sec MV E/A: 0.96 PA mean P.4 mmHg Med Peak E' Dre: 6.1 cm/sec PA pr(Accel): 32.8 mmHg E/E' med: 16.9 Lat Peak E' Dre: 7.5 cm/sec E/E' lat: 13.8 E/e' average: 15.4 MV dec time: 0.27 sec SV([facility]): 85.7 ml Reading Physician:03:33 PM
== END ==
PROVIDERS: PCP Student in an Organized Health Care Education/Training Program; Referring Provider Internal Medicine Hematology & Oncology; Visit Provider Internal Medicine Hematology & Oncology
DX: Z01.818 Encounter for other preprocedural examination (principal); C50.411 Malignant neoplasm of upper-outer quadrant of right female breast; I35.8 Other nonrheumatic aortic valve disorders; J84.10 Pulmonary fibrosis, unspecified; M51.24 Other intervertebral disc displacement, thoracic region; M48.04 Spinal stenosis, thoracic region; Z17.1 Estrogen receptor negative status [ER-]
CPT/HCPCS: 71250; 77049; 93306; A9579

== ENCOUNTER 2021-02-08 13:38 | Day surgery (SDC) | payer MEDICARE, SELFPAY ==
[2021-02-04 08:19] VITALS: BMI 50.1
[2021-02-08] VITALS (10 sets, daily range): BP systolic 132–172; BP diastolic 55–88; PULSE 61–75; RESP 14–97; TEMP 36.3–37; O2SAT 66–97; BMI 50.1
--- NOTE | 2021-02-08 | DI.RAD.S_ITS ---
PROCEDURE: XR CHEST 1V INDICATIONS: POST OP PORT A CATH TECHNIQUE: One view of the chest was acquired. COMPARISON: [facility], , CHEST 1 VIEW, 02/05/2015, 14:23. FINDINGS: Surgical changes and devices: Left subclavian chest port has been placed with tube tip projected over the lower SVC. Lungs and pleura: Lungs are clear. No pleural effusions or pneumothorax. Mediastinum: Mediastinal contours appear normal. Heart size is prominent. Bones and chest wall: No suspicious bony lesions. Overlying soft tissues appear unremarkable. IMPRESSION: Placement of left subclavian chest port without immediate complication. Dictated by: Brian Trejo RRA Interpreted: Grant Stone MD on 02/08/2021 at 16:38 Transcribed by: LILO on 02/08/2021 at 16:39 Approved by: Grant Stone M.D. on 02/08/2021 at 17:12
[2021-02-08] MEDS: LACTATED RINGERS 1,000 ML 100 ML IV (14:13)
--- NOTE | 2021-02-08 14:45 | PM.HP.1 ---
History of Present Illness History of Present Illness Chief complaint: [facility] [place] *385 copay* Narrative: The patient is a woman who has a triple negative large breast cancer about to undergo neoadjuvant chemotherapy. I was asked to place a port. She has limited peripheral IV access. Patient History Medical History Anemia Ankle pain Anxiety Asthma Astigmatism, bilateral Bronchitis Cataracts, bilateral Chicken pox Chronic back pain Colon polyps (2012) Constipation Depression Diabetes mellitus DVT (deep venous thrombosis) Foot pain GERD (gastroesophageal reflux disease) Hearing loss (~2015) History of deep venous thrombosis (05/21/15) Hyperlipidemia Hypermetropia, bilateral Hypertension Migraines Mumps Obesity Osteoarthritis Otitis externa Pernicious anemia Post traumatic stress disorder (PTSD) Presbyopia Recurrent sinusitis Right knee pain RLS (restless legs syndrome) Sleep apnea Synovial cyst of popliteal space [Mancera], left knee Vertigo Vision disorder Surgical History History of arthroscopy of left knee History of colonoscopy with polypectomy (03/09/13) History of colonoscopy with polypectomy (11/04/16) History of hysterectomy (~1993) Hx of right breast biopsy (01/11/21) Status post epidural steroid injection (06/23/16) Status post epidural steroid injection (01/12/12) Status post epidural steroid injection (02/20/12) Family & Social History Family History Mother Diabetes mellitus Heart disease Hyperlipidemia Hypertension Sister Diabetes mellitus Heart disease Hyperlipidemia Hypertension Mental health problem Social History: household members family Tobacco & Substance use: Smoking Status Never smoker alcohol intake current alcohol intake frequency holiday/special occasion Substance Use Type does not use Meds Home Medications and Allergies Home Medications Medication Instructions Recorded Confirmed Type One Touch Ultra test strips #100 each 07/19/19 12/17/20 Rx insulin lispro sliding scale SUBCUT 08/23/19 12/17/20 History aspirin 81 mg tablet,delayed 81 mg PO DAILY 08/25/19 02/08/21 History release insulin lispro 100 unit/mL 30 unit SUBCUT QAC #30 ml 04/17/20 02/08/21 Rx subcutaneous pen (Humalog KwikPen (U-100) Insulin) losartan 100 1 tab PO QDAY #90 tab 05/29/20 02/08/21 Rx mg-hydrochlorothiazide 25 mg tablet Basaglar pen needles #100 each 07/09/20 12/17/20 Rx metoprolol tartrate 50 mg tablet 50 mg PO BID #180 tab 08/14/20 02/04/21 Rx gabapentin 300 mg capsule 600 mg PO TID #180 cap 08/16/20 02/08/21 Rx (Neurontin) albuterol sulfate 90 mcg/actuation 2 puff INHALATION Q4-6H PRN #6.7 12/11/20 02/08/21 Rx aerosol inhaler (Proventil HFA) gram omeprazole 20 mg capsule,delayed 20 mg PO Q DAY #90 cap 01/15/21 02/04/21 Rx release sertraline 100 mg tablet (Zoloft) 100 mg PO QDAY #90 tab 01/15/21 02/04/21 Rx simvastatin 40 mg tablet (Zocor) 40 mg PO HS #90 tab 01/15/21 02/04/21 Rx diazepam 5 mg tablet 5 mg PO BID PRN #60 tab 01/20/21 02/08/21 Rx insulin NPH isoph U-100 human 100 See Rx Instructions SUBCUT BID #15 01/23/21 02/04/21 Rx unit/mL (3 mL) subcutaneous pen ml (Humulin N NPH U-100 Insulin KwikPen) metformin 850 mg tablet 850 mg PO BID #180 tab 01/23/21 02/04/21 Rx Allergies Allergy/AdvReac Type Severity Reaction Status Date / Time AMANUEL Inhibitors Allergy Mild Cough Verified 02/08/21 13:31 [AMANUEL INHIBITORS] cat dander [CAT DANDER] Allergy Unknown Verified 02/08/21 13:31 dog dander [DOG DANDER] Allergy Unknown Verified 02/08/21 13:31 Review of Systems Review of Systems Narrative: No chest pain. Uses an inhaler. No cough or cold. No seizures or blackouts. Sugar is 140. Exam Vital Signs (past 8 hours): - 02/08/21 14:14 Temperature 97.4 F L Pulse Rate 71 Respiratory Rate 14 Blood Pressure 150/70 H Pulse Oximetry 97 Oxygen Delivery Method Room Air Narrative Exam Narrative: Pleasant woman in no distress. She is right-hand dominant and lesion is in her right breast. Alert and oriented. Do not feel any nodes in the neck. Skin on the anterior chest wall is without rash or lesion. Quite overweight. Assessment & Plan Assessment and plan (1) Breast cancer of upper-outer quadrant of right female breast: Status: Acute Assessment & Plan narrative: Recommend placement of port in the left side to avoid the side of her cancer and also the fact that she is right-hand dominant. I have discussed the procedure and rationale with her. Described the port to her. Risks of bleeding, infection, lung collapse, clotting of the vein which might lead to swelling of the arm or pulmonary embolism were all discussed with her. Explained that if she develops swelling of the arm she should contact her oncologist or other Dr. immediately. All questions were answered and she wishes to proceed.
--- NOTE | 2021-02-08 14:51 | PM.PREOP ---
Pre-operative Note COVID-19 COVID-19 status: Negative Result date/Date tested (Pos, Neg/Pending): 02/07/21 Interval Note History & Physical reviewed/Exam performed by Physician: Yes Changes to H&P: No
--- NOTE | 2021-02-08 15:09 | SUR.OPER ---
Supine on padded OR bed, head on pillow, arms padded and tucked at sides, legs uncrossed, safety belt at thigh, tape over blanket over lower legs .
[2021-02-08] MEDS: CEFAZOLIN VIAL 3 GM in SODIUM CHLORIDE 0.9% 100 ML 200 ML IV (15:15)
[2021-02-08] MEDS: HEPARIN 5,000 UNIT, SODIUM CHLORIDE 0.9% 50 ML IV (15:33)
[2021-02-08] MEDS: LIDOCAINE 1% 30 ML INJ (15:34)
--- NOTE | 2021-02-08 16:30 | P.OP_ITS ---
Operative Date/Time/Diagnoses Date of procedure: 02/08/21 Time of procedure: 16:30 Pre-op diagnosis: Patient id need of IV access for neoadjuvant chemotherapy for breast cancer Post-op diagnosis: same Procedure & Clinicians Procedure: Place without of Port-A-Cath Same procedure as scheduled: Yes Indications: Patient with poor peripheral access in need of IV access for chemotherapy Surgeon: Ajay Luu Click Yes if Unassisted: Yes Anesthesia Type: General Operative Notes Findings: No evidence of pneumothorax. It is difficult to tell where the tip is but I believe it is in the distal SVC. Closure Type: primary Specimen(s): none sent Prosthetic devices, grafts, tissues, transplants, or devices: Tall Port-A-Cath Estimated Blood Loss (mL): 7 Blood products transfused: none Procedure in detail: The patient was placed supine on the operating room table and underwent general LMA anesthesia. A roll was placed between the patient's shoulders. She was prepped and draped in the usual fashion. Local anesthetic was infiltrated beneath the left clavicle in a field block fashion. A transverse incision was made and a pocket created inferior to the incision. A needle was inserted with difficulty into the subclavian vein. A guidewire was passed through it and the needle removed. The guidewire appeared to be in good position based upon fluoroscopic imaging. The port and catheter were put toget her and the port inserted into the pocket. The catheter was tapered to appropriate length. A dilator and introducer were passed over the guidewire. This was done with fluoroscopic visualization. The dilator and guidewire were removed leaving the introducer in place. The catheter was passed through the introducer which was then peeled away. The tip of the catheter was noted to be in the atrium but because of the patient's very large size I expected it to back out a cine she sat up.. There was no evidence of a pneumothorax on fluoroscopy. The port was aspirated and flushed with heparinized saline. The port was secured to the chest wall at 3 points with interrupted 2 0 silk suture. The subcu was closed with interrupted 3 0 Vicryl. The skin was closed with a running 4 0 Vicryl subcuticular stitch, Mastisol and Steri-Strips. Dressing was applied and the patient was taken to the recovery room in good condition. X-ray postprocedure showed no evidence of pneumothorax and what I believed with the tip in the distal SVC.. Complications: none Post-operative Condition: stable Disposition: PACU
--- NOTE | 2021-02-08 17:07 | PM.OP.1 ---
Operative Date/Time/Diagnoses Date of procedure: 02/08/21 Time of procedure: 17:08 Pre-op diagnosis: Stage IV decubitus pre sacrum Post-op diagnosis: same (Ulcer include skin subcutaneous fat muscle tendon and fragments of bone.) Procedure & Clinicians Procedure: Sharp debridement of skin subcutaneous fat tendon and bone. Area measured approximately 5 x 6 cm. Most of the skin and subcu fat had already self debrided. Same procedure as scheduled: Yes Indications: Necrotic decubitus ulcer with which the patient was admitted Surgeon: Ajay Luu Click Yes if Unassisted: Yes Anesthesia Type: MAC +/- Operative Notes Findings: tissue down to and including portions of the sacrum and coccyx. Closure Type: not applicable Specimen(s): none sent Prosthetic devices, grafts, tissues, transplants, or devices: None Estimated Blood Loss (mL): 15 Procedure in detail: The patient was placed in the right lateral decubitus position on her bed in her cheeks were taped apart so I could see into the depth of this deep ulcer. Was located in the presacral tissues. Much of the tissue appears to have self debrided. I removed a small amount of skin and subcu fat but most of what I removed was bent tendon and ligament in relation to the sacrum and coccyx. I also removed some small fragments of bone. All of the debridement was with scissors and forceps. All of it was sharp debridement. Once I was satisfied that all the tissue was removed I irrigated the wound. It was packed with saline gauze for now. Will re-evaluate tomorrow. Complications: none Post-operative Condition: stable Disposition: PACU
[2021-02-08] MEDS: LACTATED RINGERS 500 ML 1000 ML IV (17:20)
[2021-02-08] MEDS: ONDANSETRON 4 MG/2 ML INJ IV (17:25)
--- NOTE | 2021-02-08 17:26 | SUR.PHASEII ---
1725 Medicated for nausea with Zofran 4 mg IV. LR 500 cc bolus infusing. Report to Yamileth Bailey RN.
[2021-02-08] MEDS: PROCHLORPERAZINE 10 MG/2 ML VIAL IV (17:52)
--- NOTE | 2021-02-08 17:57 | SUR.PHASEII ---
States that the zofran did not improve her nausea. Medicated pre Dr. Luu and brittany-leilani given. Resting with eyes closed.
--- NOTE | 2021-02-08 18:13 | SUR.PHASEII ---
Patient states that nausea is gone. She can smile and states that she feels much better. Angeli jaquan given. Plan: Ensure that she can keep fluids down and discharge home.
== END 2021-02-08 18:38 | disposition home or self-care (01) ==
PROVIDERS: PCP Student in an Organized Health Care Education/Training Program; Referring Provider Specialist; Visit Provider Specialist
PROC: (CPT 36561; principal; 2021-02-08 14:45)
DX: C50.411 Malignant neoplasm of upper-outer quadrant of right female breast (principal); E66.9 Obesity, unspecified; I10 Essential (primary) hypertension; G47.33 Obstructive sleep apnea (adult) (pediatric); E11.9 Type 2 diabetes mellitus without complications; J45.909 Unspecified asthma, uncomplicated; Z79.4 Long term (current) use of insulin
CPT/HCPCS: 36561; 71045; 76000; 82962; C1788; J0330; J0690; J0780; J1644; J2405; J2704; J3010

== ENCOUNTER → 2021-02-14 14:09 | Outpatient (CLI) | payer MEDICARE, SELFPAY ==
--- NOTE | 2021-02-14 14:10 | DI.US.S_ITS ---
ULTRASOUND OF RIGHT BREAST: 02/14/2021 CLINICAL: Second look at axillary node per MRI report. Comparison is made to exams dated: 02/07/2021 breast MRI, 01/11/2021 mammogram, 01/11/2021 ultrasound biopsy, 12/31/2020 ultrasound, 12/31/2020 mammogram - [facility], and 04/09/2017 mammogram - outside location. Color flow and real-time ultrasound of the right breast were performed. Brown scale images of the real-time examination were reviewed. There is a 2.1 cm x 0.9 cm x 1.9 cm lymph node with minimal smooth eccentric cortical thickening in the right axilla measuring up to 4mm in thickness. This lymph node is otherwise mostly reniform in shape with slightly lobulated contours. This lymph node displays well preserved fatty hilum. This correlates with breast MRI findings. Color flow imaging demonstrates that there is vascularity present. IMPRESSION: SUSPICIOUS OF MALIGNANCY The 2.1 cm x 0.9 cm x 1.9 cm lymph node with minimal smooth eccentric cortical thickening is nonspecific and may represent reactive changes from recent biopsy although malignant invasion not completely excluded. It is at a low suspicion for malignancy. A surgical oncologic consultation is recommended to determine if an ultrasound guided biopsy would affect clinical/surgical management. If so, an ultrasound guided biopsy can be scheduled. Otherwise, short interval follow up ultrasound to document stability versus resolution can also be considered. Findings and recommendations were conveyed to the patient during today's evaluation. This exam was interpreted at Station ID: [id number]. Electronically Signed By: Wood Katz M.D. aty/:02/14/2021 14:58:18 Ultrasound BI-RADS: 4a Low suspicion for malignancy
== END ==
PROVIDERS: PCP Student in an Organized Health Care Education/Training Program; Referring Provider Internal Medicine Hematology & Oncology; Visit Provider Internal Medicine Hematology & Oncology
DX: C50.411 Malignant neoplasm of upper-outer quadrant of right female breast (principal); R59.0 Localized enlarged lymph nodes
CPT/HCPCS: 76882

== ENCOUNTER → 2021-07-19 13:26 | Outpatient (CLI) | payer MEDICARE, SELFPAY ==
--- NOTE | 2021-07-19 13:28 | DI.MRI.S_ITS ---
BREAST MRI OF BOTH BREASTS: 07/19/2021 CLINICAL: Right breast cancer. PROCEDURE: MR BREAST BI WO/W CON INDICATIONS: breast cancer, s/p neoadj chemo TECHNIQUE: The patient was placed prone in a dedicated breast imaging coil. Precontrast axial STIR and 3D FLASH without fat saturation sequences were obtained. Both before and after bolus injection of contrast, sequential 1-minute axial 3D FLASH with fat saturation sequences for 3 time points, with subtraction images and maximum intensity projections (MIP's) generated. Delayed sagittal FLASH images with fat saturation were also obtained. Computer-aided detection, including computer algorithm analysis of MRI image data for lesion detection and characterization, pharmacokinetic analysis, with further physician review for interpretation, was performed. COMPARISON: [facility], , MR BREAST BI WO/W CON, 02/07/2021, 12:43. FINDINGS: Image quality: Excellent. There is mild background parenchymal enhancement. Right breast: Previously described mass in the right breast centered at 2 to 3 o'clock position middle to posterior depth which on the prior MRI on 02/07/2021 measured 4.3 x 3.3 x 3.2 cm is significantly smaller and now measures 2.7 x 1.4 x 1.7 cm. Internal T2 hyperintensity and lack of enhancement is consistent with internal necrosis/seroma. A biopsy marker is again seen. A previously described small adjacent enhancing satellite nodule along the inferolateral aspect of the mass is no longer present. Minimal rim enhancement along the anterolateral rim of the residual mass is seen which demonstrates washout characteristics consistent with malignancy. No evidence of chest wall or skin extension. No axillary or internal mammary chain adenopathy. Left breast: The left breast demonstrates no abnormal focus, mass, or abnormal enhancement. No axillary or internal mammary chain adenopathy. Miscellaneous: Left chest wall port above the left breast. IMPRESSION: KNOWN BIOPSY PROVEN MALIGNANCY 1. Right breast mass is significantly smaller with a decrease in size from 4.3 x 3.3 x 3.2 cm to 2.7 x 1.4 x 1.7 cm. Additionally peripheral enhancement has significantly improved with only a small residual area of type 3 enhancement in the anterolateral aspect of the residual mass. 2. Small satellite nodule at the inferolateral aspect of the mass on the prior MRI has resolved. 3. No evidence of additional neoplasm in the right or left breast. 4. No axillary adenopathy. Electronically Signed By: Garrett Shepherd acr/:07/19/2021 16:51:19 ACR BI-RADS Category 6: Known biopsy proven malignancy [id number]
== END ==
PROVIDERS: PCP Student in an Organized Health Care Education/Training Program; Referring Provider Internal Medicine Hematology & Oncology; Visit Provider Internal Medicine Hematology & Oncology
DX: C50.411 Malignant neoplasm of upper-outer quadrant of right female breast (principal); Z92.21 Personal history of antineoplastic chemotherapy
CPT/HCPCS: 77049; A9579

== ENCOUNTER → 2021-09-09 09:56 | Outpatient (CLI) | payer MEDICARE, SELFPAY ==
[2021-09-09 13:10] LABS: COVID19 -Nasal RAPID Negative (Negative)
== END ==
PROVIDERS: PCP Student in an Organized Health Care Education/Training Program; Visit Provider Surgery
DX: Z01.812 Encounter for preprocedural laboratory examination (principal); Z20.822 Contact with and (suspected) exposure to COVID-19
CPT/HCPCS: 87635; C9803

== ENCOUNTER → 2021-09-11 08:57 | Outpatient (CLI) | payer MEDICARE, SELFPAY ==
--- NOTE | 2021-09-11 | DI.NM.S_ITS ---
PROCEDURE: NM SENTINEL NODE W IMAGING RADIOPHARMACEUTICAL: 0.5-1.0 mCi Millipore filtered Tc-99m sulfur colloid. INDICATIONS: Malignant neoplasm of unspecified site of right female breas COMPARISON: None. TECHNIQUE: The area around the nipple was prepped and draped in a sterile fashion. Tc-99m sulfur colloid was injected intra-dermally in the outer edge of the areola in the right breast. Images were obtained subsequently. A body contour outline was obtained. FINDINGS: There is/are 2 lymph node(s) in the ipsilateral axilla, which is marked on the skin and the images for referring physician. IMPRESSION: Administration of radiotracer into the right breast periareolar region for intra-operative sentinel lymph node localization. Dictated by: Eliana Klein MD, PhD on 09/11/2021 at 11:53 Approved by: Eliana Klein MD, PhD on 09/11/2021 at 11:57
== END ==
PROVIDERS: PCP Student in an Organized Health Care Education/Training Program; Referring Provider Surgery; Visit Provider Surgery
DX: C50.911 Malignant neoplasm of unspecified site of right female breast (principal)
CPT/HCPCS: 78195; A9541

== ENCOUNTER 2021-09-11 08:59 | Day surgery (SDC) | payer MEDICARE, SELFPAY ==
[2021-09-10 07:25] VITALS: BMI 47.5
[2021-09-11] VITALS (13 sets, daily range): BP systolic 84–138; BP diastolic 41–105; PULSE 64–77; RESP 7–18; TEMP 35.9–37.1; O2SAT 90–100; BMI 46.6
--- NOTE | 2021-09-11 | PATH_ITS ---
[facility] Accession Number: [id number] No. of containers..02 Tissue . 01 Material submitted: . PART A: breast - RIGHT BREAST SENTINEL NODE PART B: breast - RIGHT BREAST TISSUE . 02 Diagnosis: A. Right Breast, [place] Lymph Node, Excision: Four lymph nodes, negative for carcinoma (0/4). Confirmed by JESSICA immunostains. No treatment effect identified. . B. Right Breast Tissue, Simple Mastectomy: Status post neoadjuvant therapy for invasive ductal carcinoma, grade 3/3 (prior core needle biopsy [id number]). Current specimen contains residual invasive carcinoma. 1. Tumor size (invasive component): Present as multiple small foci within a tumor bed (measuring 89hmf61 mm) which spans slices 3-5. Largest tumor cells focus spans 1.1 mm (block B4/slice 4) with other microscopic foci consisting of single tumor cell foci, less than 0.1 mm in size and tumor cell clusters up to 0.5 mm (block B4/slice 4 and block B6/slice 4). The cellularity of the tumor bed is less than 1% (scattered). 2. Ductal carcinoma in situ: Not identified. 3. Calcifications: Present in tumor bed as dystrophic calcifications, and in benign breast tissue. 4. Lymphatic invasion: Not identified. 5. Resection margins (in this specimen): - Invasive carcinoma: More than 2 mm from all margins. 6. Marker studies (tested on prior core biopsy [id number]): - Estrogen receptor: Negative. - Progesterone receptor: Negative. - HER2: Negative for protein overexpression by IHC. 7. Regional lymph node status: 4 sentinel lymph nodes, all negative for carcinoma (See part A). 8. Additional findings: - Biopsy site clip within center of tumor bed identified. - Skin and nipple are present and are uninvolved. 9. Pathologic stage: ypT1a (m) ypN0(sn). . Comment: The tumor bed size is approximately 25 mm x 25 mm, spanning tissue slices 3-5. The residual invasive carcinoma is present mainly in Blocks B4 and B6 (slice 4), and a possible rare microscopic focus in B8 (slice 5). The largest focus is a relatively contiguous cluster of single cells measuring 1.1 mm in block B4, the rest of the foci are microscopic ranging from single tumor cells (in buckshot appearance) up to clusters of tumor cells measuring 0.5 mm. [facility] 09/18/2021 2330 Local . 02 Electronically signed: . Gisela Bryant MD, Pathologist NPI- [id number] . 01 Gross description: . The specimen is received in two parts. . A. Labeled with the patient's name and right sentinel node are multiple yellow adipose tissue fragments which measure 5.5 x 6.0 x 1.0 cm in aggregate. Sectioning through the adipose tissue reveals four possible lymph nodes ranging in size from 1.0 to 0.5 cm. Two out of the four lymph nodes show light blue/green ink. One of the lymph nodes was marked by a pin. The specimen is entirely submitted as follows: . A1 - Three lymph nodes. A2 - One lymph node, largest, bisected. A3-A6 - Rest of the adipose tissue fragments. . B. The specimen is received in formalin labeled with the patient's name and right breast tissue, suture: short superior, long lateral is a mastectomy specimen, which is composed of a skin ellipse with nipple and underlying breast parenchyma. The specimen is oriented with two sutures. The short suture is designated as superior, and the long suture is designated as lateral. The mastectomy specimen weighs 551 grams. The superior end will be designated as 12 o'clock. The specimen measures 15.0 cm from 12 to 6 o'clock, 17.0 cm from 9 to 3 o'clock, and 5.5 cm from anterior to posterior. The skin ellipse measures 7.0 cm longitudinally x 5.0 cm in width. The nipple measures 1.0 x 1.0 cm. The skin is pack-white and slightly wrinkled. Discrete lesions are not identified. The specimen is inked as follows: superior orange, inferior green, anterior (the tissue surrounding the skin ellipse) blue, posterior black, medial red and yellow lateral. The specimen is sectioned from lateral to medial into fourteen slices of approximately 0.5 cm thickness. Sectioning reveals an ill-defined pack-white firm mass present in slices 3, 4 and 5. There is a clip present in the center of the mass. The mass measures 1.8 x 1.7 cm in two dimensions. It involves slices 3 to 5. A biopsy site is also present in the area of the clip. The mass is present 1.0 cm from the closest posterior margin and 0.4 cm from the closest lateral and anterior margin. It is widely clear of all of the other margins. . Summary of Sections: B1 - Slice 1 with lateral margin. B2 - Slice 2 with lateral margin, adjacent to the mass. B3 - Mass with the closest lateral margin. B4-B5 - Slice 4 with composite section of the mass. B4 shows the anterior margin, and B5 shows the posterior margin. B6-B7 - Slice 4 with a composite section with B6 showing the anterior margin and B7 showing the posterior margin. Please note that the 0.5 cm slice thickness was bivalved and submitted in two parts, that is B4 and B5 one composite section and B6 and B7 the second composite section from slice 4. B8-B9 - Slice 5, composite section of the mass with B8 showing the anterior margin and B9 showing the rest of the mass. B10 - Waste [employer]er section adjacent to the mass in slice 6. B11 - Closest inferior margin from slice 4. B12 - Closest superior margin from slice 7. B13 - Medial margin from slice 14. B14 - Unremarkable breast parenchyma from slice 7. B15 - Waste Cotton Cleaner section from slice 8. B16 - Waste Cotton Cleaner section from slice 10. B17 - Waste Cotton Cleaner section from slice 12. B18 - Waste Cotton Cleaner section from slice 14. B19 - An area of hemorrhage measuring 0.3 cm noted in slice 10. B20 - An area of thin fibrous tissue from slice 9. B21 - Sections of the nipple entirely submitted. B22 - Base of the nipple shaved, entirely submitted. ([id number]) /[facility] 09/12/2021 1656 Local . 02 Microscopic: . The largest cross-sectional area of primary tumor bed was submitted in cassettes B4-B5. . JESSICA immunostain is performed on blocks A1 and A2 in order to exclude malignancy in sentinel lymph nodes, with appropriately staining external controls. In both A1 and A2, JESSICA immunostain is negative for carcinoma. . * This test was developed and its performance characteristics determined by [facility]. It has not been cleared or approved by the U.S. Food and Drug Administration. The FDA has determined that such clearance or approval is not necessary. This test is used for clinical purposes. It should not be regarded as investigational or for research. . 02 Pathologist provided ICD-10: C50.811 . 02 CPT . 221020, 410464, [id number] Specimen Comment: A courtesy copy of this report has been sent to [phone] Performed at: 01 [facility] [address] [facility], [place], [place] [id number] MD Dereck Alejo MD Phone: [phone] Performed at: 02 [facility] [id number] [place] [id number] MD Jory Antoine MD Phone: [phone]
[2021-09-11] MEDS: LACTATED RINGERS 1,000 ML 100 ML IV (11:19)
[2021-09-11] MEDS: GABAPENTIN 600 MG TABLET PO (11:35)
[2021-09-11] MEDS: SCOPOLAMINE 1 PATCH TOP (11:42)
--- NOTE | 2021-09-11 12:55 | PM.HP.1 ---
History of Present Illness History of Present Illness Date Patient Seen: 09/11/21 Time Patient Seen: 12:55 Chief complaint: OPB Narrative: Lisa Huggins is a 71-year-old woman with right breast cancer triple negative.? She has completed neoadjuvant chemotherapy.? Post chemotherapy breast MRI demonstrates interval reduction of the right breast mass now 3 cm without axillary node lymphadenopathy. Here today for right mastectomy with sentinel lymph node biopsy. Patient History Medical History Anemia Ankle pain Anxiety Asthma Astigmatism, bilateral Bronchitis Cataracts, bilateral Chicken pox Chronic back pain CKD (chronic kidney disease) Colon polyps (2012) Constipation Depression Diabetes mellitus DVT (deep venous thrombosis) Easy bruisability Fatigue Foot pain GERD (gastroesophageal reflux disease) Hearing loss (~2015) History of chemotherapy History of deep venous thrombosis (05/21/15) Hyperlipidemia Hypermetropia, bilateral Hypertension Migraines Mumps Obesity Osteoarthritis Otitis externa Pernicious anemia Post traumatic stress disorder (PTSD) Presbyopia Recurrent sinusitis Right knee pain RLS (restless legs syndrome) Sleep apnea Synovial cyst of popliteal space [Mancera], left knee Vertigo Vision disorder Surgical History History of arthroscopy of left knee History of colonoscopy with polypectomy (03/09/13) History of colonoscopy with polypectomy (11/04/16) History of hysterectomy (~1993) Hx of right breast biopsy (01/11/21) Status post epidural steroid injection (06/23/16) Status post epidural steroid injection (01/12/12) Status post epidural steroid injection (02/20/12) Family & Social History Family History Mother Diabetes mellitus Heart disease Hyperlipidemia Hypertension Sister Diabetes mellitus Heart disease Hyperlipidemia Hypertension Mental health problem Social History: household members family Tobacco & Substance use: Smoking Status Never smoker alcohol intake current alcohol intake frequency holiday/special occasion Substance Use Type does not use Meds Home Medications and Allergies Home Medications Medication Instructions Recorded Confirmed Type One Touch Ultra test strips #100 each 07/19/19 07/31/21 Rx insulin lispro sliding scale 30 unit SUBCUT PRN PRN 08/23/19 09/11/21 History aspirin 81 mg tablet,delayed 81 mg PO DAILY 08/25/19 09/11/21 History release omeprazole 20 mg capsule,delayed 20 mg PO Q DAY #90 cap 01/15/21 09/11/21 Rx release sertraline 100 mg tablet (Zoloft) 100 mg PO QDAY #90 tab 01/15/21 09/11/21 Rx simvastatin 40 mg tablet (Zocor) 40 mg PO HS #90 tab 01/15/21 09/11/21 Rx diazepam 5 mg tablet 5 mg PO BID PRN #60 tab 01/20/21 09/06/21 Rx ondansetron 4 mg disintegrating 4 mg PO Q6H #60 tab 02/25/21 09/06/21 Rx tablet metoprolol tartrate 50 mg tablet 50 mg PO BID #180 tab 05/06/21 09/11/21 Rx prochlorperazine maleate 10 mg 10 mg PO Q6H PRN #30 tab 05/27/21 09/06/21 Rx tablet losartan 100 1 tab PO QDAY #90 tab 06/03/21 09/11/21 Rx mg-hydrochlorothiazide 25 mg tablet Parking Permit... #1 ea 07/02/21 07/31/21 Rx insulin NPH isoph U-100 human 100 See Rx Instructions SUBCUT BID #30 07/02/21 09/11/21 Rx unit/mL (3 mL) subcutaneous pen ml (Humulin N NPH U-100 Insulin KwikPen) Basaglar pen needles #100 each 07/04/21 07/31/21 Rx lorazepam 0.5 mg tablet (Ativan) 0.5 mg PO PREOP #1 tab 07/18/21 09/06/21 Rx gabapentin 300 mg capsule 300 mg PO TID 09/10/21 09/11/21 History (Neurontin) metformin 850 mg tablet 850 mg PO DAILY 09/10/21 09/11/21 History albuterol sulfate 90 mcg/actuation 90 mcg INHALATION PRN PRN 09/11/21 09/11/21 History aerosol inhaler insulin lispro 100 unit/mL 40 unit SUBCUT QAC 09/11/21 09/11/21 History subcutaneous pen (Humalog KwikPen (U-100) Insulin) Allergies Allergy/AdvReac Type Severity Reaction Status Date / Time AMANUEL Inhibitors Allergy Mild Cough Verified 09/11/21 09:27 [AMANUEL INHIBITORS] cat dander [CAT DANDER] Allergy Unknown Verified 09/11/21 09:27 dog dander [DOG DANDER] Allergy Unknown Verified 09/11/21 09:27 latex Allergy Unknown Pt does Verified 09/11/21 09:27 not list reaction Exam Vital Signs (past 8 hours): - 09/11/21 09:46 Temperature 96.7 F L Pulse Rate 75 Respiratory Rate 18 Blood Pressure 138/44 L Pulse Oximetry 99 Oxygen Delivery Method Room Air Narrative Exam Narrative: Gen-Adult woman alert and oriented Chest-non labored resp. Right breast operative site marked with my initials. Assessment & Plan Assessment and plan (1) Breast cancer of upper-outer quadrant of right female breast: Status: Acute Assessment & Plan narrative: Lisa Huggins is a 71-year-old woman with right breast cancer triple negative.? She has completed neoadjuvant chemotherapy. Here today for right mastectomy with sentinel lymph node biopsy. Operative details discussed, risks including bleeding infection reoccurence, damage to surrounding structures discussed. She is in agreement with this plan will proceed Time Spent With Patient Critical Care time: I spent a total of [] minutes of critical care time on this patient's care today; this time is exclusive of procedural time.
[2021-09-11] MEDS: CEFAZOLIN 2 GM/20 ML SYRINGE IV (13:37)
--- NOTE | 2021-09-11 13:41 | PM.PROC.1 ---
Procedures Date/Time Date of procedure: 09/11/21 Time of procedure: 13:25 Nerve Block Time out performed: Yes Local anesthetic used: other (Ropi 0.5% 30 ml total) Location of anesthetic used: Right Pec1 and Pec2 blocks Amount of anesthesia used (mL): 30 Nerve blocks: other Procedure successful: Yes Patient tolerated procedure: no complications Additional comments: Blocks done under ultrasound guidance after induction and airway control achieved. Consent obtain pre-op and prior to sedation. Surgeon requests block to be done for post-op pain control. Fascial plain between pectoralis major and minor identified for PEC1 block with 10 ml of 0.5% ropivacaine instilled in 5 ml aliquots after negative aspiration. Similar fascial plain identified between pec minor and serratus anterior, and 20 ml of same anesthetic deposited in similar manner here. Time duration 2 1/2 minutes
--- NOTE | 2021-09-11 14:06 | SUR.OPER ---
Supine on padded OR bed, head on pillow, arms secured on padded arm boards at <90 degrees abduction, legs uncrossed, safety belt at thigh, tape over blanket over lower legs.
[2021-09-11] MEDS: ACETAMINOPHEN IV 1,000 MG/100 ML VIAL 400 MG IV (14:15)
[2021-09-11] MEDS: BUPIVACAINE 0.25% (PF) VIAL 30 ML INJ (14:16)
[2021-09-11] MEDS: METHYLENE BLUE 50 MG/10 ML VIAL INJ (14:44)
--- NOTE | 2021-09-11 16:08 | P.OP_ITS ---
Operative Date/Time/Diagnoses Date of procedure: 09/11/21 Time of procedure: 16:09 Pre-op diagnosis: right breast cancer Post-op diagnosis: same Procedure & Clinicians Procedure: Right mastectomy with sentinel lymph node biopsy Same procedure as scheduled: Yes Indications: 71-year-old woman triple negative right-sided breast cancer has undergone successful neoadjuvant therapy here for mastectomy and sentinel lymph node biopsy. Surgeon: Koby Person Click Yes if Unassisted: Yes Anesthesia Type: General Operative Notes Findings: 2 sentinel lymph nodes, 10 second counts 635 and 1215. Specimen(s): other (sentinel lymph nodes and right mastectomy short stictch superior long lateral) Estimated Blood Loss (mL): 50 Procedure in detail: Patient was brought to the operating room placed supine on the table. Bilateral lower extremity compression devices were applied. She received 2 g of Ancef p rior to skin incision. She was intubated with an endotracheal tube. She was then prepped and draped in sterile fashion. Time-out was performed ensure the correct patient procedure necessary equipment within the operating room. I began with the right sentinel lymph node dissection. She had been previously injected with radio labeled colloid. I injected 1 mL of methylene blue diluted with 4 ml saline into the periareolar tissue and massaged it into the breast for 5 minutes. Using a hand held gamma probe I localized transcutaneously the are of increased radioactivity. A linear incision 2 cm below the hair-bearing area of the right axilla and the subcutaneous tissues were divided with electrocautery. The axillary tissue was carefully dissected towards the area of maximal radioactivity. Two sentinel lymph node were identified. The lymphatics were clipped with heomolips and transected sharply. I returned the gamma probe to the field there were no pathologically enlarged nodes or significant background activity. The axilla was inspected for hemostasis and then the subcutaneous tissue was closed with the 3 0 Vicryl suture and skin closed with 4 Monocryl followed by Demand. Next the right mastectomy was performed. An elliptical incision around the nipple areola complex was made with the knife. The subcutaneous tissue was divided with electrocautery. Skin flaps were raised to separate the breast tissue from the skin along the subdermal plexus. The dissection was extended superior to the clavicle, medial to the sternum, inferior the the inframamary fold and lateral to the anterior border of the latisimus dorsi. Next the breast tissue was from the underlying pectoralis fascia. The breast was passed off the field marked short stitch superior long stitch lateral. A 19 Danish Yair drain was placed into the cavity and secured. The wound was copiously irrigated and homeostasis was ensured. The mastectomy was closed with 3 0 Vicryl for the subcutaneous tissue and the skin was closed with 4 0 Monocryl followed by the application of Dermabond. Patient tolerated procedure well she emerged from anesthesia was extubated and transferred to recovery room in stable condition. Complications: none Post-operative Condition: stable Disposition: same day surgery
[2021-09-11] MEDS: OXYCODONE IR 5 MG TABLET PO (16:17)
[2021-09-11] MEDS: HYDROMORPHONE 2 MG INJ IV ×2 (16:35→16:41)
== END 2021-09-11 17:40 | disposition home or self-care (01) ==
LOC: OR 09:00 → AC 09:04 → OR 17:18
PROVIDERS: PCP Student in an Organized Health Care Education/Training Program; Referring Provider Surgery; Visit Provider Surgery
PROC: 0HTT0ZZ Resection of Right Breast, Open Approach (ICD-10-PCS; CPT 19303; principal; 2021-09-11 12:15)
DX: C50.411 Malignant neoplasm of upper-outer quadrant of right female breast (principal); Z17.1 Estrogen receptor negative status [ER-]; J45.20 Mild intermittent asthma, uncomplicated; G47.33 Obstructive sleep apnea (adult) (pediatric); K21.9 Gastro-esophageal reflux disease without esophagitis; Z79.4 Long term (current) use of insulin; E11.22 Type 2 diabetes mellitus with diabetic chronic kidney disease; I12.9 Hypertensive chronic kidney disease with stage 1 through stage 4 chronic kidney disease, or unspecified chronic kidney disease; N18.9 Chronic kidney disease, unspecified
CPT/HCPCS: 19303; 38500; 78195; 82962; A9541; J0131; J0690; J1170; J2405; J2704; J3010; Q9968

== ENCOUNTER 2021-09-28 19:42 | Inpatient (IN) | payer MEDICARE, SELFPAY ==
[2021-09-28] VITALS (16 sets, daily range): BP systolic 60–136; BP diastolic 9–66; PULSE 87–100; RESP 18–34; TEMP 37.4–38.5; O2SAT 94–100; BMI 44.9; BMI 46.1
--- NOTE | 2021-09-28 20:18 | ED.SKABFB ---
HPI - Skin/Abscess/Foreign Bdy <Tabitha Daisy, DO - Last Filed: 09/29/21 04:18> General Chief complaint: Skin/Abscess/Foreign Body Stated complaint: Poss infection post surg Time Seen by Provider: 09/28/21 19:44 History of Present Illness HPI narrative: Patient is a 71-year-old female who has a history of triple negative breast cancer she had a right-sided mastectomy on 09/11/2021. She was seen evaluated for postop evaluation 09/26/2021 thought to have adhesive allergic reaction. She has since developed fever of 101. it is draining red and hard. She has no other complaints. She denies any cough or chest pain. No painful or frequent urination. Related Data Home Medications Medication Instructions Recorded Confirmed insulin lispro sliding scale 30 unit SUBCUT PRN PRN 08/23/19 09/28/21 aspirin 81 mg tablet,delayed 81 mg PO DAILY 08/25/19 09/28/21 release gabapentin 300 mg capsule 300 mg PO TID 09/10/21 09/28/21 (Neurontin) metformin 850 mg tablet 850 mg PO DAILY 09/10/21 09/28/21 albuterol sulfate 90 mcg/actuation 90 mcg INHALATION PRN PRN 09/11/21 09/28/21 aerosol inhaler insulin lispro 100 unit/mL 40 unit SUBCUT QAC 09/11/21 09/28/21 subcutaneous pen (Humalog KwikPen (U-100) Insulin) Previous Rx's Medication Instructions Recorded One Touch Ultra test strips #100 each 07/19/19 omeprazole 20 mg capsule,delayed 20 mg PO Q DAY #90 cap 01/15/21 release sertraline 100 mg tablet (Zoloft) 100 mg PO QDAY #90 tab 01/15/21 simvastatin 40 mg tablet (Zocor) 40 mg PO HS #90 tab 01/15/21 diazepam 5 mg tablet 5 mg PO BID PRN #60 tab 01/20/21 ondansetron 4 mg disintegrating 4 mg PO Q6H #60 tab 02/25/21 tablet metoprolol tartrate 50 mg tablet 50 mg PO BID #180 tab 05/06/21 losartan 100 1 tab PO QDAY #90 tab 06/03/21 mg-hydrochlorothiazide 25 mg tablet Parking Permit... #1 ea 07/02/21 Basaglar pen needles #100 each 07/04/21 Allergies Allergy/AdvReac Type Severity Reaction Status Date / Time AMANUEL Inhibitors Allergy Mild Cough Verified 09/26/21 10:29 [AMANUEL INHIBITORS] cat dander [CAT DANDER] Allergy Unknown Verified 09/26/21 10:29 dog dander [DOG DANDER] Allergy Unknown Verified 09/26/21 10:29 latex Allergy Unknown Pt does Verified 09/26/21 10:29 not list reaction Review of Systems <Tabitha Villa DO - Last Filed: 09/29/21 04:18> Review of Systems Narrative: GENERAL: Denies chills, fatigue, malaise, fever, sweats, travel HEENT: Denies sinus pain, ear pain, sore throat, difficulty swallowing, neck pain RESPIRATORY: Denies dyspnea, cough, wheezing, hemoptysis, sputum. CARDIOVASCULAR: Denies chest pain, palpitations, orthopnea, edema GASTROINTESTINAL: Denies nausea, vomiting, abdominal pain, diarrhea, constipation, melena. : Denies dysuria, frequency, incontinence, hematuria, urinary retention, flank pain. MUSCULOSKELETAL: Denies weakness, joint pain, or bony pain SKIN: See HPI NEUROLOGIC: Denies weakness, dizziness, headache, numbness, change in speech, confusion PSYCHIATRIC: No concerning psychosocial issues. 12 point review of systems is negative except for those stated above and HPI Patient History <Tabitha Villa DO - Last Filed: 09/29/21 04:18> Medical History Anemia Ankle pain Anxiety Asthma Astigmatism, bilateral Bronchitis Cataracts, bilateral Chicken pox Chronic back pain CKD (chronic kidney disease) Colon polyps (2012) Constipation Depression Diabetes mellitus DVT (deep venous thrombosis) Easy bruisability Fatigue Foot pain GERD (gastroesophageal reflux disease) Hearing loss (~2016) History of chemotherapy History of deep venous thrombosis (05/21/15) Hyperlipidemia Hypermetropia, bilateral Hypertension Migraines Mumps Obesity Osteoarthritis Otitis externa Pernicious anemia Post traumatic stress disorder (PTSD) Presbyopia Recurrent sinusitis Right knee pain RLS (restless legs syndrome) Sleep apnea Synovial cyst of popliteal space [Mancera], left knee Vertigo Vision disorder Surgical History History of arthroscopy of left knee History of colonoscopy with polypectomy (03/09/13) History of colonoscopy with polypectomy (11/04/16) History of hysterectomy (~1993) Hx of right breast biopsy (01/11/21) Status post epidural steroid injection (06/23/16) Status post epidural steroid injection (01/12/12) Status post epidural steroid injection (02/20/12) Family History Mother Diabetes mellitus Heart disease Hyperlipidemia Hypertension Sister Diabetes mellitus Heart disease Hyperlipidemia Hypertension Mental health problem Social History household members: family Smoking Status: Never smoker alcohol intake: current substance use type: does not use Smoking Status: Never smoker alcohol intake frequency: holidays/special occasions only Substance Use Type: does not use Exam <Tabitha Villa DO - Last Filed: 09/29/21 04:18> Initial Vital Signs Initial Vital Signs: Vital Signs Temperature 100.5 F H 09/28/21 19:56 Pulse Rate 100 H 09/28/21 19:56 Respiratory Rate 20 09/28/21 19:56 Blood Pressure 136/66 09/28/21 19:56 Pulse Oximetry 94 09/28/21 19:56 GENERAL: Alert 71-year-old female awake and alert in good spirits HEENT: Head atraumatic,EOMI, pupils reactive, face symmetric, moist mucous membranes CARDIOVASCULAR: Regular rate and rhythm without murmurs, rubs or gallops. RESPIRATORY: Breath sounds equal bilaterally, no wheezes rales or rhonchi. ABDOMEN: Soft, nontender. Normoactive bowel sounds all 4 quadrants. No guarding or rebound. EXTREMITIES: Normal range of motion, no clubbing or edema. Neurovascularly intact NEUROLOGICAL: Alert and oriented x4.Normal gait and speech. SKIN: Right breast incision site erythematous slightly with white induration tender to touch Course <Tabitha Villa DO - Last Filed: 09/29/21 04:18> Orders Ordered: ED Orders 09/28/21 20:06 EKG-12 Lead Stat 09/28/21 20:30 Blood Culture Stat 09/28/21 20:43 Complete Blood Count AUTO DIFF Stat Comprehensive Metabolic Panel Stat Lactate (Lactic Acid) Stat Procalcitonin Stat Troponin & CK Cardiac Panel Stat 09/28/21 20:47 COVID19 -Nasal swab/Pre-Proc Stat 09/28/21 22:12 Education, smoking cessation ONGOING 09/29/21 03:15 Urinalysis and Microscopic Stat Acetaminophen (Acetaminophen 325 Mg Tablet) 650 mg PO Q6HR PRN PRN Reason: Fever/Mild Pain (1-3) Last Admin: 09/29/21 00:01 Dose: 650 mg Documented by: CAREN Atorvastatin Calcium (Atorvastatin 20 Mg Tablet) 20 mg PO BEDTIME [facility] Last Admin: 09/28/21 23:19 Dose: 20 mg Documented by: CAREN Celecoxib (Celecoxib 100 Mg Capsule) 200 mg PO BID [facility] Last Admin: 09/28/21 23:25 Dose: Not Given Documented by: CAREN Diazepam (Diazepam 5 Mg Tablet) 5 mg PO BID PRN PRN Reason: anxiety Gabapentin (Gabapentin 300 Mg Capsule) 300 mg PO TID [facility] Last Admin: 09/28/21 23:19 Dose: 300 mg Documented by: CAREN Hydrochlorothiazide (Hydrochlorothiazide 25 Mg Tablet) 25 mg PO DAILY [facility] Lactated Ringer's (Lactated Ringers) 1,000 mls @ 125 mls/hr IV CONT [facility] Last Admin: 09/28/21 23:25 Dose: 125 mls/hr Documented by: CAREN Losartan Potassium (Losartan 50 Mg Tablet) 100 mg PO DAILY [facility] Metformin HCl (Metformin 850 Mg Tablet) 850 mg PO DAILY [facility] Metoprolol Tartrate (Metoprolol Ir 50 Mg Tablet) 50 mg PO BID [facility] Last Admin: 09/28/21 23:21 Dose: Not Given Documented by: CAREN Naloxone HCl (Naloxone 0.4 Mg/Ml Vial) 0.2 mg IV Q2MIN PRN PRN Reason: Opiate Reversal Ondansetron HCl (Ondansetron 4 Mg Odt) 4 mg PO Q6H PRN PRN Reason: Nausea And Vomiting Oxycodone HCl (Oxycodone Ir 5 Mg Tablet) 10 mg PO QID PRN PRN Reason: pain Pantoprazole Sodium (Pantoprazole Dr 20 Mg Tablet) 20 mg PO DAILY [facility] Sertraline HCl (Sertraline 50 Mg Tablet) 100 mg PO DAILY [facility] Last Admin: 09/28/21 23:18 Dose: 100 mg Documented by: CAREN Discontinued Medications Sodium Chloride (Normal Saline 0.9%) 1,000 mls @ 1,000 mls/hr IV BOLUS ONE Stop: 09/28/21 22:32 Last Infusion: 09/28/21 23:16 Dose: 0 mls/hr Documented by: Infusion: 09/28/21 22:04 Dose: 999 mls/hr Documented by: Admin: 09/28/21 21:51 Dose: 1,000 mls/hr Documented by: DEYANIRA Piperacillin Sod/Tazobactam (Sod 4.5 gm/ Sodium Chloride) 100 mls @ 200 mls/hr IV NOW ONE Stop: 09/28/21 22:13 Last Infusion: 09/28/21 23:45 Dose: 0 mls/hr Documented by: Admin: 09/28/21 23:15 Dose: 200 mls/hr Documented by: CAREN Ketorolac Tromethamine (Ketorolac 30 Mg/Ml Vial) 15 mg IV NOW ONE Stop: 09/28/21 20:23 Last Admin: 09/28/21 20:31 Dose: 15 mg Documented by: ALEXANDER Morphine Sulfate (Morphine 4 Mg/Ml Inj) 4 mg IV NOW ONE Stop: 09/28/21 20:23 Last Admin: 09/28/21 20:32 Dose: 4 mg Documented by: ALEXANDER Ondansetron HCl (Ondansetron 4 Mg/2 Ml Inj) 4 mg IV NOW ONE Stop: 09/28/21 20:23 Last Admin: 09/28/21 21:51 Dose: Not Given Documented by: DEYANIRA Ondansetron HCl (Ondansetron 4 Mg Odt) 4 mg PO Q6H [facility] Last Admin: 09/28/21 23:22 Dose: Not Given Documented by: CAREN MDM - Skin/Abscess/Foreign Bdy <Tabitha Villa DO - Last Filed: 09/29/21 04:18> Lab Data Result diagrams: 09/28/21 20:43 09/28/21 20:43 ECG Data Interpretation: Normal sinus Rhythm rate 88 NJ interval 146 QRS [address] changes Q-waves noted in lead 3 previously seen from 2015 as well. MDM Narrative Medical decision making narrative: The patient is found to have low-grade fever here in the emergency department with probable abscess. She has duration at the incision site. Wound culture is taken. She does not have any leukocytosis, she is not septic. She is normal lactate of 1.4 with minimally elevated procalcitonin. However she does have an obvious source of infection. Creatinine function is slightly elevated previous shows to be 1.13 is the today is 1.3. So she is chronically anemic. Her baseline is from 7.0-8.5, today it is 7.0. Dr. Bueno has been updated patient's symptoms and test results agrees with admission and will likely go to the OR tomorrow. Discharge Plan Departure Patient Disposition: Admitted As Inpatient Clinical Impression: Postoperative infection of breast incision Admit Date/Time: 09/28/21 20:24 Admit Provider: Mary Bueno
[2021-09-28] MEDS: KETOROLAC 30 MG/ML VIAL 15 MG IV (20:31)
[2021-09-28] MEDS: MORPHINE 4 MG/ML INJ IV (20:32)
[2021-09-28] MEDS: LIDOCAINE 1% (PF) 2 ML (20:45)
--- NOTE | 2021-09-28 20:46 | P.HP_ITS ---
History of Present Illness History of Present Illness Date Patient Seen: 09/29/21 Time Patient Seen: 10:23 Chief complaint: Poss infection post surg Narrative: * S/p right mastectomy 09/[address] Person. Seen and placed on Bactrim for concern for infection. Presented to ED septic with fever, tachycardia, redness and increased pain at surgical site. Surgical path shows clear margins, negative SLN, original biopsy was triple negative adenocarcinoma. had neoadjuvant treament. * neutropenic * Severe anemia * Risk factors for wound infection include diabetes, neutropenia, and morbid obesity with BMI 45. Patient History Medical History Anemia Ankle pain Anxiety Asthma Astigmatism, bilateral Bronchitis Cataracts, bilateral Chicken pox Chronic back pain CKD (chronic kidney disease) Colon polyps (2012) Constipation Depression Diabetes mellitus DVT (deep venous thrombosis) Easy bruisability Fatigue Foot pain GERD (gastroesophageal reflux disease) Hearing loss (~2015) History of chemotherapy History of deep venous thrombosis (05/21/15) Hyperlipidemia Hypermetropia, bilateral Hypertension Migraines Mumps Obesity Osteoarthritis Otitis externa Pernicious anemia Post traumatic stress disorder (PTSD) Presbyopia Recurrent sinusitis Right knee pain RLS (restless legs syndrome) Sleep apnea Synovial cyst of popliteal space [Mancera], left knee Vertigo Vision disorder Surgical History History of arthroscopy of left knee History of colonoscopy with polypectomy (03/09/13) History of colonoscopy with polypectomy (11/04/16) History of hysterectomy (~1993) Hx of right breast biopsy (01/11/21) Status post epidural steroid injection (06/23/16) Status post epidural steroid injection (01/12/12) Status post epidural steroid injection (02/20/12) Family & Social History Family History Mother Diabetes mellitus Heart disease Hyperlipidemia Hypertension Sister Diabetes mellitus Heart disease Hyperlipidemia Hypertension Mental health problem Social History: household members family Tobacco & Substance use: Smoking Status Never smoker alcohol intake current alcohol intake frequency holiday/special occasion Substance Use Type does not use Meds Home Medications and Allergies Home Medications Medication Instructions Recorded Confirmed Type One Touch Ultra test strips #100 each 07/19/19 09/28/21 Rx insulin lispro sliding scale 30 unit SUBCUT PRN PRN 08/23/19 09/28/21 History aspirin 81 mg tablet,delayed 81 mg PO DAILY 08/25/19 09/28/21 History release omeprazole 20 mg capsule,delayed 20 mg PO Q DAY #90 cap 01/15/21 09/28/21 Rx release sertraline 100 mg tablet (Zoloft) 100 mg PO QDAY #90 tab 01/15/21 09/28/21 Rx simvastatin 40 mg tablet (Zocor) 40 mg PO HS #90 tab 01/15/21 09/28/21 Rx diazepam 5 mg tablet 5 mg PO BID PRN #60 tab 01/20/21 09/28/21 Rx ondansetron 4 mg disintegrating 4 mg PO Q6H #60 tab 02/25/21 09/28/21 Rx tablet metoprolol tartrate 50 mg tablet 50 mg PO BID #180 tab 05/06/21 09/28/21 Rx losartan 100 1 tab PO QDAY #90 tab 06/03/21 09/28/21 Rx mg-hydrochlorothiazide 25 mg tablet Parking Permit... #1 ea 07/02/21 09/28/21 Rx Basaglar pen needles #100 each 07/04/21 09/28/21 Rx gabapentin 300 mg capsule 300 mg PO TID 09/10/21 09/28/21 History (Neurontin) metformin 850 mg tablet 850 mg PO DAILY 09/10/21 09/28/21 History albuterol sulfate 90 mcg/actuation 90 mcg INHALATION PRN PRN 09/11/21 09/28/21 History aerosol inhaler insulin lispro 100 unit/mL 40 unit SUBCUT QAC 09/11/21 09/28/21 History subcutaneous pen (Humalog KwikPen (U-100) Insulin) Allergies Allergy/AdvReac Type Severity Reaction Status Date / Time AMANUEL Inhibitors Allergy Mild Cough Verified 09/26/21 10:29 [AMANUEL INHIBITORS] cat dander [CAT DANDER] Allergy Unknown Verified 09/26/21 10:29 dog dander [DOG DANDER] Allergy Unknown Verified 09/26/21 10:29 latex Allergy Unknown Pt does Verified 09/26/21 10:29 not list reaction Review of Systems Review of Systems Narrative: Asymptomatic anemia with h/o anemia during chemo ROS: Yes All systems reviewed with the patient and are negative except as otherw ise documented Exam Vital Signs (past 8 hours): - 09/28/21 20:30 09/28/21 20:36 Pulse Rate 92 H 92 H Respiratory Rate 20 Blood Pressure 133/9 L Pulse Oximetry 94 94 Oxygen Delivery Method Room Air Const General: cooperative and frail appearing Nutritional Appearance: obese [facility] Head: normocephalic and atraumatic Other: hair loss from chemo Eyes General: appearance normal, both eyes and all related structures Eyelids: eyelids normal Sclera: sclerae normal Neck Neck: trachea midline Chest Breast inspection: abnormal inspection of the breast (right mastectomy site is swollen and surrounding erythema. wound intact) Breast Palpation: abnormal palpation of the axilla (post op changes) Resp Effort & Inspection: normal respiratory effort and able to speak in complete sentences Other: redness around left chest port Cardio Rate: regular rate Rhythm: regular rhythm GI Inspection: normal to inspection and obesity Palpation: soft Skin General: elasticity normal and ecchymosis Wounds: wounds noted (s/p right mastectomy) Hair: other (hair loss from chemo) Neuro General: patient alert, patient oriented x3 and moves all extremities Cognition: normal cognition Extrem General: full ROM Psych Mental Status: mental status grossly normal Affect: normal affect Attitude: cooperative Judgment: judgment good Objective Labs Result Diagrams: 09/28/21 20:43 09/28/21 20:43 Assessment & Plan Assessment & Plan narrative: Sepsis with right mastectomy site infection, hypotension, fever. Neutropenic Severe anemia w/o tachycardia. Morbid obesity Plan: OR for I and D of right breast, Transfuse 2 units PRBC after surgery, IV Zosyn, consult hospitalist. Neutropenic precautions. COVID-19 COVID-19 status: Negative Time Spent With Patient Time with patient: 30 to 49 minutes with 50% spent counseling/coordinating care Critical Care time: I spent a total of [] minutes of critical care time on this patient's care today; this time is exclusive of procedural time.
[2021-09-28 20:57] LABS: Red Cell Distribution Width 18.4 % (11.6-14.8)
[2021-09-28 21:02] LABS: Add Manual Diff / Slide Review YES; Hematocrit 20.6 % (36-46); Mean Corpuscular HGB Conc 33.7 % (30-36); Mean Corpuscular Volume 94.9 fL (80-100); Platelet Count 137 X10^3/uL (150-400); Red Blood Cell Count 2.17 X10^6/uL (4.0-5.2); White Blood Cell Count 5.3 X10^3/uL (4.5-11.0)
[2021-09-28 21:10] LABS: Alanine Aminotransferase 25 IU/L (<35); Albumin Globulin Ratio 1.3 (1.0-2.8); Alkaline Phosphatase 180 U/L (38-126); Aspartate Aminotransferase 63 IU/L (14-36); BUN Creatinine Ratio 20.8 (6-22); Bilirubin Total 0.8 mg/dL (0.2-1.3); Blood Urea Nitrogen 27 mg/dL (7-17); Calcium 9.1 mg/dL (8.4-10.2); Carbon Dioxide 25 mmol/L (22-32); Chloride 99 mmol/L (98-107); Creatine Kinase < 20 U/L (30-135); Estimated Glomerular Filt Rate 40.6 mL/min (>60); Glucose 197 mg/dL (80-110); HEMOLYSIS < 15 (0-50); Sodium 133 mmol/L (137-145)
[2021-09-28 21:11] LABS: Lactate (Lactic Acid) 1.4 mmol/L (0.7-2.1)
[2021-09-28 21:22] LABS: COVID19 -Nasal RAPID Negative (Negative)
[2021-09-28 21:22] LABS: Troponin I 0.026 ng/mL (0.01-0.034)
[2021-09-28 21:27] LABS: Procalcitonin 0.37 ng/mL (<0.5)
[2021-09-28] MEDS: SODIUM CHLORIDE 0.9% 1,000 ML 1000 ML IV (21:51)
--- NOTE | 2021-09-28 21:57 | PC.NURSE ---
Around 2130 pt BP was in 60s systolic. MD notified, bolus IVF initiated, and patient placed in trendelenburg. Pt alert and asymptomatic. BP improved to 110s systolic. Continuing IVF and to monitor pt.
[2021-09-28 21:59] LABS: Neutrophils Absolute Manual 5035 /uL (3000-5900); Total Cells Counted 100
[2021-09-28 22:00] LABS: Anisocytosis 1+
[2021-09-28] MEDS: PIPERACILLIN/TAZO 4.5 GM in SODIUM CHLORIDE 0.9% 100 ML 200 ML IV (23:15)
[2021-09-28] MEDS: SERTRALINE 50 MG TABLET 100 MG PO (23:18)
[2021-09-28] MEDS: GABAPENTIN 300 MG CAPSULE PO (23:19)
[2021-09-28] MEDS: ATORVASTATIN 20 MG TABLET PO (23:19)
[2021-09-28] MEDS: LACTATED RINGERS 1,000 ML 125 ML IV (23:25)
[2021-09-29] VITALS (28 sets, daily range): BP systolic 73–117; BP diastolic 29–89; PULSE 51–87; RESP 14–22; TEMP 35.9–39.6; O2SAT 93–99
[2021-09-29] MEDS: ACETAMINOPHEN 325 MG TABLET 650 MG PO ×2 (00:01→05:46)
--- NOTE | 2021-09-29 02:52 | PC.NURSE ---
late entry: Pt arrived to the unit at 2205 from the ED via stretcher. Pt denied any pain or nausea. Pt was A/O and on 2L NC. Pts Right breast incision was open to air with scant drainage. Pt hat a fever of 101.3 at 2328, Provider, Dr. Bueno was called and telephone orders were given for 650mg Tylenol PRN were given. Pt was given the Tylenol at 0001 and at 0045 temp was down to 100.0 orally. Pt was rechecked at 0115 and temp raised to 102.[address] Bueno was called again and no new orders were given at this time. Provider stated to continue to give Tylenol q6hrs and monitor the patient.
[2021-09-29 03:30] LABS: Appearance Urine UA CLEAR; Glucose Urine UA NEGATIVE (Negative); Ketones Urine UA TRACE (NEGATIVE); Leukocyte Esterase Urine UA NEGATIVE (NEGATIVE); Nitrite Urine UA NEGATIVE (Negative); Occult Blood Urine UA NEGATIVE (Negative); Protein Urine UA 2+ (Negative); Specific Gravity Urine UA >=1.030 (1.000-1.035); Urobilinogen Urine UA 0.2 E.U./dL (0.2)
[2021-09-29 03:32] LABS: Color Urine UA Dark Yellow
[2021-09-29 03:35] LABS: Bilirubin Urine UA Negative (NEGATIVE)
[2021-09-29 03:37] LABS: RBC Urine 0-1/HPF (0-5/HPF); Squamous Epithelial Cell Urine 1-5 /HPF (0-5/HPF); WBC Urine 0-1/HPF (0-5/HPF)
[2021-09-29 03:38] LABS: Amorphous Sediment Urine 1+; Bacteria Urine Few (2-10); Calcium Oxalate Crystals Urine Few
[2021-09-29 03:39] LABS: Culture Indicated Urine Cult Not Indicated
[2021-09-29] MEDS: PANTOPRAZOLE DR 20 MG TABLET PO (08:31)
[2021-09-29] MEDS: METOPROLOL IR 50 MG TABLET PO (08:31)
[2021-09-29] MEDS: SERTRALINE 50 MG TABLET 100 MG PO (08:31)
[2021-09-29] MEDS: METFORMIN 850 MG TABLET PO (08:31)
[2021-09-29] MEDS: GABAPENTIN 300 MG CAPSULE PO (08:31)
--- NOTE | 2021-09-29 09:18 | CM.DANOTE ---
DCP: Case received, EMR reviewed and met with patient. Introduced self and role. Was able to obtain information regarding patient's baseline activity status prior to hospitalization, as well as her current living situation. DCP assessment completed with information currently available. Patient is a 71 year old female who admitted yesterday evening to the care of the hospitalist team. PCP: Dr. Zazueta. Payer: confirmed: [employer]. Patient came to the hospital via ambulance secondary to having a fever of 101, and symptoms of post-op infection. Patient was recently here on the 11 of September for a right sided mastectomy. She holds current diagnosis of postoperative infection of breast incision. She is currently getting IV antibiotics. Met with patient in her room. She was laying in bed, alert and oriented, pleasant. Patient resides in [place] with her daughter, Ria, and son-in-law. She is independent. She had been driving, but since getting her chemo, she has not. P: DCP to continue to follow for any needs. Patient should be able to go home when she is deemed medically stable. Sanaz Christiansen RN/Fabrication Inspector Discharge Planning/Care Management CM Discharge Assessment Start: 09/29/21 09:16 Freq: Status: Active Protocol: Document 09/29/21 09:16 (Rec: 09/29/21 09:18 [id number]) Discharge Planning Assessment Assigned Collar Fuser Sanaz Christiansen RN/Fabrication Inspector Advance Directives? No History Provided By Patient,Medical Record Prior Living Arrangements House Household Members family Type of transporation used prior to Drives own vehicle admit Independent with ADL's Yes Is patient alert and oriented? Yes Caregiver for Another No Barriers to Discharge No Discharge Plan Home Transportation Arrangement Family Referrals Initiated None needed Whiteboard Updated in Patient Room with Yes name and ext. # of Collar Fuser Review Status In Process Next Review Type Continued Stay Review
[2021-09-29 10:56] LABS: Add Manual Diff / Slide Review NO; Basophils Absolute Auto 0 /uL (0-100); Basophils Percent Auto 0.1 % (0-2); Eosinophils Absolute Auto 200 /uL (0-450); Eosinophils Percent Auto 3.3 % (2-4); Lymphocytes Absolute Auto 200 /uL (1100-4500); Lymphocytes Percent Auto 2.8 % (25-40); Mean Corpuscular HGB Conc 33.5 % (30-36); Mean Corpuscular Hemoglobin 32.2 PG (26-34); Mean Corpuscular Volume 96.2 fL (80-100); Monocytes Absolute Auto 300 /uL (0-900); Monocytes Percent Auto 4.9 % (3-14); Neutrophils Absolute Auto 4800 /uL (1500-7000); Neutrophils Percent Auto 88.9 % (50-75); Platelet Count 150 X10^3/uL (150-400); Red Cell Distribution Width 18.7 % (11.6-14.8); White Blood Cell Count 5.4 X10^3/uL (4.5-11.0)
[2021-09-29 11:09] LABS: Hematocrit 19.3 % (36-46); Hemoglobin 6.5 g/dL (12.0-16.0)
--- NOTE | 2021-09-29 12:25 | SUR.OPER ---
Supine on padded OR bed, head on pillow, arms secured on padded arm boards at <90 degrees abduction, legs uncrossed, safety belt at thigh, tape over blanket over lower legs.
[2021-09-29] MEDS: SCOPOLAMINE 1 PATCH TOP (13:09)
--- NOTE | 2021-09-29 13:14 | P.OP_ITS ---
Operative Date/Time/Diagnoses Date of procedure: 09/29/21 Time of procedure: 13:14 Pre-op diagnosis: Right mastectomy site wound infection Post-op diagnosis: same Procedure & Clinicians Procedure: I&D of right mastectomy site with culture. Debridement of chest wall incision. Same procedure as scheduled: Yes Indications: Postop wound infection right mastectomy site in a neutropenic severely anemic female. No tachycardia likely due to beta block. Hypotension and persistent fevers. Mastectomy performed 09 11 2021 Surgeon: Mary Bueno Click Yes if Unassisted: Yes Anesthesia Type: General Operative Notes Findings: Cloudy seroma within the mastectomy site itself. Approximately 60 cc of fluid removed. 30 cc removed from the separate axillary wounds without evidence of infection. Necrosis of the entire length of the mastectomy incision debrided sharply. Closure Type: primary Specimen(s): other (Culture) Applied: drain(s) (15 Yair drain) Estimated Blood Loss (mL): 15 Blood products transfused: none Procedure in detail: Prep diagnosis: Sepsis and a neutropenic patient right breast postop infection status post mastectomy Postop diagnosis Same Operative procedure: Incision and drainage of axillary wound and mastectomy site. Debridement of mastectomy site. Surgeon: Gertrudis Bueno MD Anesthetic: General with LMA intubation. Findings: Axillary area had 30 mL of clear lymphatic fluid, no evidence of infection. Mastectomy site had cloudy infected seroma approximately 60 mL. Along with necrosis the length of her incision incorporating the skin and subcutaneous tissue only. 10 cm x 1.5 cm x .5 cm. Procedure: Patient placed in a supine position. Prepped and draped sterile fashion expose her right chest wall. Old incision was incised and reopened on the chest wall initially draining the above findings of infected seroma. I then opened the axillary area began draining a seroma there was well with the above amount draining no evidence of infection. I chose to use a single 15 Yair d rain transversing the axillary area into the mastectomy operative site bringing out through the old drain site. It was sutured to the anterior abdominal wall with a 3-0 nylon. I then debrided the length of the wound as described above. 10 cm x 1.5 cm x 0.5 cm, using a 10 blade and electrocautery. Hemostasis with direct pressure. Both wounds closed in a similar fashion using 3-0 Monocryl in a whipstitch. Surgical glue across the incisions prior to sterile dressings. Good suction of the bulb at the end of the case. Patient was awakened, extubated, taken to recovery room in stable condition with needle, instrument, sponge counts and correct. Blood loss: 15 mL Specimen: Mastectomy site culture Complications: none Post-operative Condition: stable Disposition: PACU
[2021-09-29] MEDS: PRENATAL VIT,CALC/IRON/FOLIC 1 TABLET 1 TAB PO (16:11)
[2021-09-29] MEDS: GABAPENTIN 300 MG CAPSULE 600 MG PO ×2 (16:11→21:10)
--- NOTE | 2021-09-29 17:38 | P.CONS_ITS ---
History of Present Illness Consult details Date Patient Seen: 09/29/21 Time Patient Seen: 15:00 Chief complaint: Poss infection post surg Narrative: Ms. Huggins is a 71W with PMH triple negative breast cancer s/p neadjuvant chemo s/p mastectomy of right breast on 09/11, CKD, Type 2 DM on insulin, HTN, NANCY who presents for concern of post-operative infection. She presented to the ED with fever to 101, with breast indurated and draining. She was admitted by the surgical service and started on antibiotics. Medicine is consulted for assistance in managing infection, diabetes, and renal dysfunction and concern about immunocompromised or neutropenic status. She is seen after I+D of right mastectomy site with debridement. She is feeling much improved and says her pain is well controlled and her chills have resolved. She has slight nausea. She of note did have a hemoglobin earlier today below 7 and has already been transfused 2U PRBC. Cultures are notable for growing GPC and GNR, she has been ordered for Zosyn, and vancomycin is now added. Meds Home Medications and Allergies Home Medications Medication Instructions Recorded Confirmed Type One Touch Ultra test strips #100 each 07/19/19 09/28/21 Rx insulin lispro sliding scale 30 unit SUBCUT PRN PRN 08/23/19 09/28/21 History aspirin 81 mg tablet,delayed 81 mg PO DAILY 08/25/19 09/28/21 History release omeprazole 20 mg capsule,delayed 20 mg PO Q DAY #90 cap 01/15/21 09/28/21 Rx release sertraline 100 mg tablet (Zoloft) 100 mg PO QDAY #90 tab 01/15/21 09/28/21 Rx simvastatin 40 mg tablet (Zocor) 40 mg PO HS #90 tab 01/15/21 09/28/21 Rx diazepam 5 mg tablet 5 mg PO BID PRN #60 tab 01/20/21 09/28/21 Rx ondansetron 4 mg disintegrating 4 mg PO Q6H #60 tab 02/25/21 09/28/21 Rx tablet metoprolol tartrate 50 mg tablet 50 mg PO BID #180 tab 05/06/21 09/28/21 Rx losartan 100 1 tab PO QDAY #90 tab 06/03/21 09/28/21 Rx mg-hydrochlorothiazide 25 mg tablet Parking Permit... #1 ea 07/02/21 09/28/21 Rx Basaglar pen needles #100 each 07/04/21 09/28/21 Rx gabapentin 300 mg capsule 300 mg PO TID 09/10/21 09/28/21 History (Neurontin) metformin 850 mg tablet 850 mg PO DAILY 09/10/21 09/28/21 History albuterol sulfate 90 mcg/actuation 90 mcg INHALATION PRN PRN 09/11/21 09/28/21 History aerosol inhaler insulin lispro 100 unit/mL 40 unit SUBCUT QAC 09/11/21 09/28/21 History subcutaneous pen (Humalog KwikPen (U-100) Insulin) Allergies Allergy/AdvReac Type Severity Reaction Status Date / Time AMANUEL Inhibitors Allergy Mild Cough Verified 09/26/21 10:29 [AMANUEL INHIBITORS] cat dander [CAT DANDER] Allergy Unknown Verified 09/26/21 10:29 dog dander [DOG DANDER] Allergy Unknown Verified 09/26/21 10:29 latex Allergy Unknown Pt does Verified 09/26/21 10:29 not list reaction Review of Systems Review of Systems Narrative: 14 systems reviewed and negative aside from what is noted in HPI Exam Vital Signs (past 8 hours): - 09/29/21 09:54 09/29/21 13:03 09/29/21 13:08 Temperature 100 F H Pulse Rate 80 80 Respiratory Rate 14 19 Blood Pressure 114/38 L 112/83 Pulse Oximetry 95 99 99 09/29/21 13:13 09/29/21 13:26 09/29/21 13:32 Temperature Pulse Rate 83 84 87 Respiratory Rate 22 14 22 Blood Pressure 110/39 L 98/31 L 103/47 L Pulse Oximetry 96 95 95 09/29/21 13:40 09/29/21 14:09 09/29/21 14:10 Temperature 100.1 F H 100.1 F H 99.9 F H Pulse Rate 84 84 51 L Respiratory Rate 20 20 19 Blood Pressure 112/31 L 112/31 L 76/39 L Pulse Oximetry 94 98 09/29/21 14:30 09/29/21 14:40 09/29/21 15:40 Temperature 99.1 F 99.9 F H 96.6 F L Pulse Rate 85 85 74 Respiratory Rate 16 16 18 Blood Pressure 114/31 L 114/31 L 73/50 L Pulse Oximetry 99 99 09/29/21 16:40 Temperature 98.8 F Pulse Rate 85 Respiratory Rate 18 Blood Pressure 117/29 L Pulse Oximetry 98 Oxygen Delivery Method Nasal Cannula Oxygen Flow Rate 3 Narrative Exam Narrative: GEN: no acute distress HEEN: moist mucous membranes, PERRL SKIN: SEYMOUR drain in place, right chest bandage clean, dry, intact CV: regular rate and rhythm PULM: clear bilaterally, no wheezes, rhonchi, rales ABD: soft, nontender, nondistended, no organomegaly EXT: warm and well perfused with no edema NEURO: awake alert oriented, no focal deficits PSYCH: pleasant Objective Labs Result Diagrams: 09/29/21 10:44 09/28/21 20:43 Labs: Laboratory Results - last 24 hr 09/28/21 09/28/21 09/28/21 20:43 20:43 20:43 WBC 5.3 RBC 2.17 L Hgb 7.0 L Hct 20.6 L* MCV 94.9 MCH 32.0 MCHC 33.7 RDW 18.4 H Plt Count 137 L Neut % (Auto) Not Reportable Lymph % (Auto) Not Reportable [place] % (Auto) Not Reportable Eos % (Auto) Not Reportable Baso % (Auto) Not Reportable Neut # (Auto) Lymph # (Auto) Not Reportable [place] # (Auto) Not Reportable Eos # (Auto) Baso # (Auto) Not Reportable Total Counted 100 Seg Neutrophils % 91.0 H Band Neutrophils % 4.0 Lymphocytes % (Manual) 3.0 L Monocytes % (Manual) 2.0 Neutrophils # (Manual) 5035 RBC Morphology See below Anisocytosis 1+ H Sodium 133 L Potassium 4.0 Chloride 99 Carbon Dioxide 25 BUN 27 H Creatinine 1.30 H Estimated GFR 40.6 L BUN/Creatinine Ratio 20.8 Glucose 197 H Lactate 1.4 Calcium 9.1 Total Bilirubin 0.8 AST 63 H ALT 25 Alkaline Phosphatase 180 H Total Creatine Kinase < 20 L CK-MB (CK-2) TNP CK-MB (CK-2) Rel Index TNP Troponin I 0.026 Total Protein 7.0 Albumin 4.0 Globulin 3.0 Albumin/Globulin Ratio 1.3 Procalcitonin 0.37 Urine Color Urine Appearance Urine pH Ur Specific [place] Urine Protein Urine Glucose (UA) Urine Ketones Urine Occult Blood Urine Nitrate Urine Bilirubin Urine Urobilinogen Ur Leukocyte Esterase Urine RBC Urine WBC Ur Squamous Epith Cells Calcium Oxalate Crystal Amorphous Sediment Urine Bacteria Ur Culture Indicated? SARS-CoV-2 (PCR) Blood Type Antibody Screen Crossmatch 09/28/21 09/28/21 09/29/21 20:47 21:00 03:15 WBC RBC Hgb Hct MCV MCH MCHC RDW Plt Count Neut % (Auto) Lymph % (Auto) [place] % (Auto) Eos % (Auto) Baso % (Auto) Neut # (Auto) Lymph # (Auto) [place] # (Auto) Eos # (Auto) Baso # (Auto) Total Counted Seg Neutrophils % Band Neutrophils % Lymphocytes % (Manual) Monocytes % (Manual) Neutrophils # (Manual) RBC Morphology Anisocytosis Sodium Potassium Chloride Carbon Dioxide BUN Creatinine Estimated GFR BUN/Creatinine Ratio Glucose Lactate Calcium Total Bilirubin AST ALT Alkaline Phosphatase Total Creatine Kinase CK-MB (CK-2) CK-MB (CK-2) Rel Index Troponin I Total Protein Albumin Globulin Albumin/Globulin Ratio Procalcitonin Urine Color Dark yellow Urine Appearance Clear Urine pH 5.0 Ur Specific [place] >=1.030 H Urine Protein 2+ H Urine Glucose (UA) Negative Urine Ketones Trace H Urine Occult Blood Negative Urine Nitrate Negative Urine Bilirubin Negative Urine Urobilinogen 0.2 Ur Leukocyte Esterase Negative Urine RBC 0-1/hpf Urine WBC 0-1/hpf Ur Squamous Epith Cells 1-5 /hpf Calcium Oxalate Crystal Few H Amorphous Sediment 1+ Urine Bacteria Few (2-10) H Ur Culture Indicated? Cult not indicated SARS-CoV-2 (PCR) Negative Blood Type O Positive Antibody Screen Negative Crossmatch See Detail 09/29/21 10:44 WBC 5.4 RBC 2.00 L Hgb 6.5 L* Hct 19.3 L* MCV 96.2 MCH 32.2 MCHC 33.5 RDW 18.7 H Plt Count 150 Neut % (Auto) 88.9 H Lymph % (Auto) 2.8 L [place] % (Auto) 4.9 Eos % (Auto) 3.3 Baso % (Auto) 0.1 Neut # (Auto) 4800 Lymph # (Auto) 200 L [place] # (Auto) 300 Eos # (Auto) 200 Baso # (Auto) 0 Total Counted Seg Neutrophils % Band Neutrophils % Lymphocytes % (Manual) Monocytes % (Manual) Neutrophils # (Manual) RBC Morphology Anisocytosis Sodium Potassium Chloride Carbon Dioxide BUN Creatinine Estimated GFR BUN/Creatinine Ratio Glucose Lactate Calcium Total Bilirubin AST ALT Alkaline Phosphatase Total Creatine Kinase CK-MB (CK-2) CK-MB (CK-2) Rel Index Troponin I Total Protein Albumin Globulin Albumin/Globulin Ratio Procalcitonin Urine Color Urine Appearance Urine pH Ur Specific [place] Urine Protein Urine Glucose (UA) Urine Ketones Urine Occult Blood Urine Nitrate Urine Bilirubin Urine Urobilinogen Ur Leukocyte Esterase Urine RBC Urine WBC Ur Squamous Epith Cells Calcium Oxalate Crystal Amorphous Sediment Urine Bacteria Ur Culture Indicated? SARS-CoV-2 (PCR) Blood Type Antibody Screen Crossmatch [facility] Medical History Anemia Ankle pain Anxiety Asthma Astigmatism, bilateral Bronchitis Cataracts, bilateral Chicken pox Chronic back pain CKD (chronic kidney disease) Colon polyps (2012) Constipation Depression Diabetes mellitus DVT (deep venous thrombosis) Easy bruisability Fatigue Foot pain GERD (gastroesophageal reflux disease) Hearing loss (~2015) History of chemotherapy History of deep venous thrombosis (05/21/15) Hyperlipidemia Hypermetropia, bilateral Hypertension Migraines Mumps Obesity Osteoarthritis Otitis externa Pernicious anemia Post traumatic stress disorder (PTSD) Presbyopia Recurrent sinusitis Right knee pain RLS (restless legs syndrome) Sleep apnea Synovial cyst of popliteal space [Mancera], left knee Vertigo Vision disorder Surgical History History of arthroscopy of left knee History of colonoscopy with polypectomy (03/09/13) History of colonoscopy with polypectomy (11/04/16) History of hysterectomy (~1993) Hx of right breast biopsy (01/11/21) Status post epidural steroid injection (06/23/16) Status post epidural steroid injection (01/12/12) Status post epidural steroid injection (02/20/12) Family History Mother Diabetes mellitus Heart disease Hyperlipidemia Hypertension Sister Diabetes mellitus Heart disease Hyperlipidemia Hypertension Mental health problem Social History household members: family Tobacco & Substance Use Smoking Status: Never smoker alcohol intake: current substance use type: does not use Assessment & Plan Assessment & Plan narrative: Ms. Huggins is a 71W with H R breast cancer, triple negative, s/p neoadjuvant chemo and R mastectomy who presents with post surgical wound infection 1. Post surgical infection -has already been taken to OR for debridement and washout -cultures growing GPC and GNR -already started on zosyn, will also order vancomycin -no significant neutropenia currently -follow up cultures 2. Anemia -likely secondary to cancer, chemo, and recent surgery -patient hemodynamically stable currently, with no overt bleeding -already ordered 2U prbc, follow up repeat CBC 3. JOEL -likely secondary to infection -continue IV fluids and IV antibiotics for empiric treatment of hypovolemia -trend daily 4. Type 2 Diabetes, on insulin -continued on metformin -will restart insulin at 20U daily instead of 40U daily as has not been eating significantly -may need to increase dose as appetite improves -continue sliding scale 5. Breast cancer s/p neoadjuvant chemo -original path shows triple negative adenoCA -s/p mastectomy of right breast -path shows clear margins, negative lymph node 6. Morbid obesity, BMI 46.2 -risk factor for infection Thank you for this consult. We will continue to follow along with you. CODE: Full Proxy: Ria Sparrow, daughter I have utilized all available resources to reconcile the patient's home medications. Time Spent With Patient Critical Care time: I spent a total of [] minutes of critical care time on this patient's care today; this time is exclusive of procedural time.
[2021-09-29] MEDS: PIPERACILLIN/TAZO 3.375 GM in SODIUM CHLORIDE 0.9% 100 ML 25 ML IV (18:04)
[2021-09-29] MEDS: INSULIN LISPRO 100 UNIT/ML 3ML VIAL SUBCUT (21:10)
[2021-09-29] MEDS: ATORVASTATIN 20 MG TABLET PO (21:10)
[2021-09-29] MEDS: CELECOXIB 200 MG CAPSULE PO (21:10)
[2021-09-29] MEDS: INSULIN GLARGINE 100 UNIT/ML 3ML PEN 20 UNIT SUBCUT (21:12)
[2021-09-30] VITALS (13 sets, daily range): BP systolic 101–152; BP diastolic 33–61; PULSE 68–85; RESP 12–17; TEMP 36.4–37.3; O2SAT 92–100
[2021-09-30] MEDS: PIPERACILLIN/TAZO 3.375 GM in SODIUM CHLORIDE 0.9% 100 ML 25 ML IV ×2 (01:34→15:08)
[2021-09-30 05:39] LABS: Add Manual Diff / Slide Review NO; Basophils Absolute Auto 0 /uL (0-100); Basophils Percent Auto 0.1 % (0-2); Eosinophils Absolute Auto 100 /uL (0-450); Eosinophils Percent Auto 5.1 % (2-4); Hemoglobin 7.7 g/dL (12.0-16.0); Lymphocytes Absolute Auto 100 /uL (1100-4500); Lymphocytes Percent Auto 4.4 % (25-40); Mean Corpuscular HGB Conc 33.9 % (30-36); Mean Corpuscular Hemoglobin 30.8 PG (26-34); Mean Corpuscular Volume 90.9 fL (80-100); Monocytes Absolute Auto 200 /uL (0-900); Monocytes Percent Auto 7.2 % (3-14); Neutrophils Absolute Auto 2300 /uL (1500-7000); Neutrophils Percent Auto 83.2 % (50-75); Platelet Count 105 X10^3/uL (150-400); Red Cell Distribution Width 19.4 % (11.6-14.8); White Blood Cell Count 2.8 X10^3/uL (4.5-11.0)
[2021-09-30 05:53] LABS: Hematocrit 22.7 % (36-46)
[2021-09-30 05:55] LABS: Alanine Aminotransferase 38 IU/L (<35); Albumin 3.5 g/dL (3.5-5.0); Albumin Globulin Ratio 1.2 (1.0-2.8); Alkaline Phosphatase 112 U/L (38-126); Aspartate Aminotransferase 53 IU/L (14-36); BUN Creatinine Ratio 20.1 (6-22); Bilirubin Total 1.2 mg/dL (0.2-1.3); Blood Urea Nitrogen 46 mg/dL (7-17); Calcium 8.1 mg/dL (8.4-10.2); Carbon Dioxide 25 mmol/L (22-32); Chloride 98 mmol/L (98-107); Estimated Glomerular Filt Rate 21.1 mL/min (>60); Globulin 2.9 g/dL (1.7-4.1); Glucose 223 mg/dL (80-110); HEMOLYSIS < 15 (0-50); Potassium 4.6 mmol/L (3.4-5.1); Sodium 130 mmol/L (137-145); Total Protein 6.4 g/dL (6.3-8.2)
[2021-09-30] MEDS: LACTATED RINGERS 1,000 ML 125 ML IV (07:00)
--- NOTE | 2021-09-30 07:50 | DI.US.S_ITS ---
PROCEDURE: US RENAL COMPLETE INDICATIONS: JOEL TECHNIQUE: Real-time scanning was performed of the kidneys and bladder, with image documentation. COMPARISON: None. FINDINGS: Kidneys: Kidneys are normal in size. Right kidney measures 11.2 cm long; left kidney measures 10.9 cm long. Right renal cortical thickness is 1.8 cm; left renal cortical thickness is 2.0 cm. Renal cortical echotexture is normal. No hydronephrosis or nephrolithiasis. No suspicious solid mass lesions. Bladder: Pre-void bladder is underdistended, which limits evaluation. Voiding was not attempted. Miscellaneous: No free pelvic fluid. IMPRESSION: No hydronephrosis or nephrolithiasis. No significant sonographic abnormality. Dictated by: Baldemar Kaur M.D. on 09/30/2021 at 9:05 Approved by: Baldemar Kaur M.D. on 09/30/2021 at 9:12
[2021-09-30] MEDS: INSULIN LISPRO 100 UNIT/ML 3ML VIAL SUBCUT ×4 (08:03→22:04)
[2021-09-30] MEDS: SODIUM CHLORIDE 0.9% 500 ML 1000 ML IV (08:12)
[2021-09-30] MEDS: PRENATAL VIT,CALC/IRON/FOLIC 1 TABLET 1 TAB PO (08:12)
[2021-09-30] MEDS: PANTOPRAZOLE DR 20 MG TABLET PO (08:12)
[2021-09-30] MEDS: SERTRALINE 50 MG TABLET 100 MG PO (08:14)
[2021-09-30] MEDS: SODIUM CHLORIDE 0.9% 1,000 ML 125 ML IV ×2 (09:51→22:11)
--- NOTE | 2021-09-30 12:16 | P.PN_ITS ---
Subjective Subjective Date Patient Seen: 09/30/21 Time Patient Seen: 08:00 Interval history: Today she feels much improved. Pain is well controlled. No fevers/chills. She thinks she is urinating a normal amount. Exam Vital Signs (past 8 hours): - 09/30/21 07:35 09/30/21 07:40 09/30/21 08:00 Temperature 97.9 F Pulse Rate 75 Respiratory Rate 17 Blood Pressure 131/47 L Pulse Oximetry 100 94 100 09/30/21 11:43 09/30/21 11:58 09/30/21 12:00 Temperature 97.5 F L 98.3 F 98.3 F Pulse Rate 81 79 79 Respiratory Rate 14 12 17 Blood Pressure 113/33 L 101/49 L 101/49 L Pulse Oximetry 97 Oxygen Delivery Method Room Air Oxygen Flow Rate 0 Narrative Exam Narrative: GEN: no acute distress HEEN: moist mucous membranes, PERRL SKIN: SEYMOUR drain in place, right chest bandage clean, dry, intact CV: regular rate and rhythm PULM: clear bilaterally, no wheezes, rhonchi, rales ABD: soft, nontender, nondistended, no organomegaly EXT: warm and well perfused with no edema NEURO: awake alert oriented, no focal deficits PSYCH: pleasant Objective Labs Result Diagrams: 09/30/21 05:19 09/30/21 05:19 Labs: Laboratory Results - last 24 hr 09/28/21 09/30/21 09/30/21 21:00 05:19 05:19 WBC 2.8 L RBC 2.50 L Hgb 7.7 L Hct 22.7 L MCV 90.9 D MCH 30.8 MCHC 33.9 RDW 19.4 H Plt Count 105 L Neut % (Auto) 83.2 H Lymph % (Auto) 4.4 L [place] % (Auto) 7.2 Eos % (Auto) 5.1 H Baso % (Auto) 0.1 Neut # (Auto) 2300 Lymph # (Auto) 100 L [place] # (Auto) 200 Eos # (Auto) 100 Baso # (Auto) 0 Sodium 130 L Potassium 4.6 Chloride 98 Carbon Dioxide 25 BUN 46 H Creatinine 2.29 H Estimated GFR 21.1 L BUN/Creatinine Ratio 20.1 Glucose 223 H Calcium 8.1 L Total Bilirubin 1.2 AST 53 H ALT 38 H Alkaline Phosphatase 112 D Total Protein 6.4 Albumin 3.5 Globulin 2.9 Albumin/Globulin Ratio 1.2 Blood Type O Positive Antibody Screen Negative Crossmatch See Detail [facility] Medical History Anemia Ankle pain Anxiety Asthma Astigmatism, bilateral Bronchitis Cataracts, bilateral Chicken pox Chronic back pain CKD (chronic kidney disease) Colon polyps (2012) Constipation Depression Diabetes mellitus DVT (deep venous thrombosis) Easy bruisability Fatigue Foot pain GERD (gastroesophageal reflux disease) Hearing loss (~2015) History of chemotherapy History of deep venous thrombosis (05/21/15) Hyperlipidemia Hypermetropia, bilateral Hypertension Migraines Mumps Obesity Osteoarthritis Otitis externa Pernicious anemia Post traumatic stress disorder (PTSD) Presbyopia Recurrent sinusitis Right knee pain RLS (restless legs syndrome) Sleep apnea Synovial cyst of popliteal space [Mancera], left knee Vertigo Vision disorder Surgical History History of arthroscopy of left knee History of colonoscopy with polypectomy (03/09/13) History of colonoscopy with polypectomy (11/04/16) History of hysterectomy (~1993) Hx of right breast biopsy (01/11/21) Status post epidural steroid injection (06/23/16) Status post epidural steroid injection (01/12/12) Status post epidural steroid injection (02/20/12) Family History Mother Diabetes mellitus Heart disease Hyperlipidemia Hypertension Sister Diabetes mellitus Heart disease Hyperlipidemia Hypertension Mental health problem Social History household members: family Smoking Status: Never smoker alcohol intake: current substance use type: does not use Assessment & Plan Assessment & Plan narrative: Ms. Huggins is a 71W with PMH R breast cancer, triple negative, s/p neoadjuvant chemo and R mastectomy who presents with post surgical wound infection 1. Post surgical infection -has already been taken to OR for debridement and washout -cultures growing GPC and GNR -already started on zosyn, will also order vancomycin -no significant neutropenia currently -follow up cultures 2. Anemia -likely secondary to cancer, chemo, and recent surgery -patient hemodynamically stable currently, with no overt bleeding -already ordered 2U prbc, follow up repeat CBC was 7.7, order 1U PRBC additional 3. JOEL -likely secondary to infection -worsened to 2.29 on 09/30 -stop metformin, losartan, nsaids -ordered renal us -continue fluid resuscitation -ordered urinalysis, urine sodium/creatinine -ordered for strict I/Os 4. Type 2 Diabetes, on insulin -stop metfomrin -initially restarted insulin at 20U as was not eating normal, increase to 40U given high blood sugars and improved appetite -continue sliding scale 5. Breast cancer s/p neoadjuvant chemo -original path shows triple negative adenoCA -s/p mastectomy of right breast -path shows clear margins, negative lymph node 6. Morbid obesity, BMI 46.2 -risk factor for infection Thank you for this consult. We will continue to follow along with you. CODE: Full Proxy: Ria Sparrow, daughter I have utilized all available resources to reconcile the patient's home medications. Time Spent With Patient Critical Care time: I spent a total of [] minutes of critical care time on this patient's care today; this time is exclusive of procedural time.
--- NOTE | 2021-09-30 13:15 | P.PN_ITS ---
Subjective Subjective Date Patient Seen: 09/30/21 Time Patient Seen: 13:15 Interval history: No acute events. Minimal pain Exam Vital Signs (past 8 hours): - 09/30/21 07:35 09/30/21 07:40 09/30/21 08:00 Temperature 97.9 F Pulse Rate 75 Respiratory Rate 17 Blood Pressure 131/47 L Pulse Oximetry 100 94 100 09/30/21 11:43 09/30/21 11:58 09/30/21 12:00 Temperature 97.5 F L 98.3 F 98.3 F Pulse Rate 81 79 79 Respiratory Rate 14 12 17 Blood Pressure 113/33 L 101/49 L 101/49 L Pulse Oximetry 97 Oxygen Delivery Method Room Air Oxygen Flow Rate 0 Narrative Exam Narrative: Gen-Elderly woman alert and oriented Chest-Drain SS. Dressings CD Objective Labs Result Diagrams: 09/30/21 05:19 09/30/21 05:19 Labs: Laboratory Results - last 24 hr 09/28/21 09/30/21 09/30/21 21:00 05:19 05:19 WBC 2.8 L RBC 2.50 L Hgb 7.7 L Hct 22.7 L MCV 90.9 D MCH 30.8 MCHC 33.9 RDW 19.4 H Plt Count 105 L Neut % (Auto) 83.2 H Lymph % (Auto) 4.4 L [place] % (Auto) 7.2 Eos % (Auto) 5.1 H Baso % (Auto) 0.1 Neut # (Auto) 2300 Lymph # (Auto) 100 L [place] # (Auto) 200 Eos # (Auto) 100 Baso # (Auto) 0 Sodium 130 L Potassium 4.6 Chloride 98 Carbon Dioxide 25 BUN 46 H Creatinine 2.29 H Estimated GFR 21.1 L BUN/Creatinine Ratio 20.1 Glucose 223 H Calcium 8.1 L Total Bilirubin 1.2 AST 53 H ALT 38 H Alkaline Phosphatase 112 D Total Protein 6.4 Albumin 3.5 Globulin 2.9 Albumin/Globulin Ratio 1.2 Blood Type O Positive Antibody Screen Negative Crossmatch See Detail [facility] Medical History Anemia Ankle pain Anxiety Asthma Astigmatism, bilateral Bronchitis Cataracts, bilateral Chicken pox Chronic back pain CKD (chronic kidney disease) Colon polyps (2012) Constipation Depression Diabetes mellitus DVT (deep venous thrombosis) Easy bruisability Fatigue Foot pain GERD (gastroesophageal reflux disease) Hearing loss (~2015) History of chemotherapy History of deep venous thrombosis (05/21/15) Hyperlipidemia Hypermetropia, bilateral Hypertension Migraines Mumps Obesity Osteoarthritis Otitis externa Pernicious anemia Post traumatic stress disorder (PTSD) Presbyopia Recurrent sinusitis Right knee pain RLS (restless legs syndrome) Sleep apnea Synovial cyst of popliteal space [Mancera], left knee Vertigo Vision disorder Surgical History History of arthroscopy of left knee History of colonoscopy with polypectomy (03/09/13) History of colonoscopy with polypectomy (11/04/16) History of hysterectomy (~1993) Hx of right breast biopsy (01/11/21) Status post epidural steroid injection (06/23/16) Status post epidural steroid injection (01/12/12) Status post epidural steroid injection (02/20/12) Family History Mother Diabetes mellitus Heart disease Hyperlipidemia Hypertension Sister Diabetes mellitus Heart disease Hyperlipidemia Hypertension Mental health problem Social History household members: family Smoking Status: Never smoker alcohol intake: current substance use type: does not use Assessment & Plan Post-op Postoperative Procedures: Procedures Operation Date: 09/29/21 11:30 Actual Procedure Side Surgeon p Incision and Drainage, debridement Right breast Right Mary Bueno MD Postoperative status narrative: POD 1 sp I&D of right breast sp mastectomy. Follow up cultures. Continue Zosyn and Vancomycin Anticipate discharge tomorrow on antibiotics with drain
[2021-09-30] MEDS: OXYCODONE IR 5 MG TABLET 10 MG PO ×2 (13:23→22:23)
--- NOTE | 2021-09-30 13:49 | PC.NURSE ---
Addendum entered by Brigette Sanchez R.N. 09/30/21 15:29: Patients unit of blood infused and patient tolerated well. U/A sent off to lab, she was also given oxycodone for 6/10 pain. Resting comfortably. Original Note: Patient has a dry dressing to her r.mastectomy that was I&d. SEYMOUR drain is present with minimal bloody drainage. Patient given oxycodone for complaints of 6/10 pain to area, this has been helpful to her. Up with one person assist, to obtain urine sample when she is able to void again. She is a one person assist with the walker and gaitbelt. Patient is visiting with her daughter now. She has a unit of blood that is infusing and she is tolerating this well through her chest port.
[2021-09-30 15:55] LABS: Appearance Urine UA CLEAR; Bilirubin Urine UA NEGATIVE (NEGATIVE); Color Urine UA YELLOW; Glucose Urine UA NEGATIVE (Negative); Ketones Urine UA NEGATIVE (NEGATIVE); Leukocyte Esterase Urine UA TRACE (NEGATIVE); Nitrite Urine UA NEGATIVE (Negative); Occult Blood Urine UA 2+ (Negative); Protein Urine UA NEGATIVE (Negative); Urobilinogen Urine UA 0.2 E.U./dL (0.2)
[2021-09-30 16:08] LABS: RBC Urine 0-1/HPF (0-5/HPF); Squamous Epithelial Cell Urine 1-5 /HPF (0-5/HPF); WBC Urine 1-5/HPF (0-5/HPF)
[2021-09-30 16:09] LABS: Bacteria Urine Occasional (0-1); Culture Indicated Urine Specimen Cultured
[2021-09-30 17:03] LABS: Blood Urea Nitrogen 43 mg/dL (7-17); Calcium 8.3 mg/dL (8.4-10.2); Carbon Dioxide 25 mmol/L (22-32); Chloride 99 mmol/L (98-107); Estimated Glomerular Filt Rate 26.7 mL/min (>60); Glucose 208 mg/dL (80-110); HEMOLYSIS < 15 (0-50); Potassium 4.7 mmol/L (3.4-5.1); Sodium 132 mmol/L (137-145)
[2021-09-30 17:11] LABS: Creatinine Urine Random 73.4 mg/dL; Sodium Urine Random 54 mmol/L (30-90)
[2021-09-30 17:16] LABS: Hematocrit 23.9 % (36-46); Hemoglobin 8.2 g/dL (12.0-16.0); Mean Corpuscular HGB Conc 34.5 % (30-36); Mean Corpuscular Hemoglobin 30.9 PG (26-34); Mean Corpuscular Volume 89.6 fL (80-100); Platelet Count 99 X10^3/uL (150-400); Red Blood Cell Count 2.67 X10^6/uL (4.0-5.2); Red Cell Distribution Width 19.1 % (11.6-14.8); White Blood Cell Count 2.2 X10^3/uL (4.5-11.0)
[2021-09-30] MEDS: ATORVASTATIN 20 MG TABLET PO (22:04)
[2021-09-30] MEDS: HEPARIN 5,000 UNIT/ML VIAL 7500 UNIT SUBCUT (22:04)
[2021-09-30] MEDS: INSULIN GLARGINE 100 UNIT/ML 3ML PEN 40 UNIT SUBCUT (22:05)
[2021-10-01] VITALS (7 sets, daily range): BP systolic 132–160; BP diastolic 45–73; PULSE 80–87; RESP 16–18; TEMP 36.5–37.2; O2SAT 94–96
[2021-10-01] MEDS: PIPERACILLIN/TAZO 3.375 GM in SODIUM CHLORIDE 0.9% 100 ML 25 ML IV (02:54)
[2021-10-01] MEDS: HEPARIN 5,000 UNIT/ML VIAL 7500 UNIT SUBCUT ×3 (05:29→21:10)
[2021-10-01 05:30] LABS: Hematocrit 23.2 % (36-46); Mean Corpuscular HGB Conc 34.3 % (30-36); Mean Corpuscular Hemoglobin 30.8 PG (26-34); Mean Corpuscular Volume 89.7 fL (80-100); Platelet Count 93 X10^3/uL (150-400); Red Cell Distribution Width 18.7 % (11.6-14.8)
[2021-10-01 05:32] LABS: BUN Creatinine Ratio 23.3 (6-22); Blood Urea Nitrogen 37 mg/dL (7-17); Calcium 8.1 mg/dL (8.4-10.2); Carbon Dioxide 24 mmol/L (22-32); Chloride 101 mmol/L (98-107); Estimated Glomerular Filt Rate 32.2 mL/min (>60); Glucose 179 mg/dL (80-110); HEMOLYSIS < 15 (0-50); Potassium 4.4 mmol/L (3.4-5.1); Sodium 132 mmol/L (137-145); White Blood Cell Count 1.5 X10^3/uL (4.5-11.0)
[2021-10-01 05:34] LABS: Red Blood Cell Count 2.59 X10^6/uL (4.0-5.2)
[2021-10-01] MEDS: PRENATAL VIT,CALC/IRON/FOLIC 1 TABLET 1 TAB PO (10:03)
[2021-10-01] MEDS: SERTRALINE 50 MG TABLET 100 MG PO (10:03)
[2021-10-01] MEDS: PANTOPRAZOLE DR 20 MG TABLET PO (10:03)
[2021-10-01] MEDS: INSULIN LISPRO 100 UNIT/ML 3ML VIAL SUBCUT ×4 (10:05→21:16)
[2021-10-01] MEDS: ACETAMINOPHEN 325 MG TABLET 650 MG PO (10:34)
[2021-10-01] MEDS: CEFDINIR 300 MG CAPSULE PO ×2 (13:43→21:10)
--- NOTE | 2021-10-01 13:43 | PM.PNPO.1 ---
Subjective Subjective Date Patient Seen: 10/01/21 Time Patient Seen: 13:43 Interval history: No acute events. Exam Vital Signs (past 8 hours): - 10/01/21 10:00 10/01/21 10:28 Temperature 98.9 F Pulse Rate 82 Respiratory Rate 16 Blood Pressure 160/73 H Pulse Oximetry 96 96 Oxygen Delivery Method Room Air Oxygen Flow Rate 0 Narrative Exam Narrative: Gen-Adult woman alert and oriented Chest-R mastectomy site CDI dressing removed. Mild warmth. Axillary incision CDI. Drain SS Objective Labs Result Diagrams: 10/01/21 05:07 10/01/21 05:07 Labs: Laboratory Results - last 24 hr 09/28/21 09/30/21 09/30/21 21:00 14:30 14:30 WBC RBC Hgb Hct MCV MCH MCHC RDW Plt Count Sodium Potassium Chloride Carbon Dioxide BUN Creatinine Estimated GFR BUN/Creatinine Ratio Glucose Calcium Urine Color Yellow Urine Appearance Clear Urine pH 5.0 Ur Specific Temple 1.010 Urine Protein Negative Urine Glucose (UA) Negative Urine Ketones Negative Urine Occult Blood 2+ H Urine Nitrate Negative Urine Bilirubin Negative Urine Urobilinogen 0.2 Ur Leukocyte Esterase Trace H Urine RBC 0-1/hpf Urine WBC 1-5/hpf Ur Squamous Epith Cells 1-5 /hpf Urine Bacteria Occasional (0-1) Ur Culture Indicated? Specimen cultured Ur Random Sodium 54 Urine Creatinine 73.4 Crossmatch See Detail 09/30/21 09/30/21 10/01/21 16:27 16:27 05:07 WBC 2.2 L 1.5 L* RBC 2.67 L 2.59 L Hgb 8.2 L 8.0 L Hct 23.9 L 23.2 L MCV 89.6 89.7 MCH 30.9 30.8 MCHC 34.5 34.3 RDW 19.1 H 18.7 H Plt Count 99 L 93 L Sodium 132 L Potassium 4.7 Chloride 99 Carbon Dioxide 25 BUN 43 H Creatinine 1.87 H Estimated GFR 26.7 L BUN/Creatinine Ratio 23.0 H Glucose 208 H Calcium 8.3 L Urine Color Urine Appearance Urine pH Ur Specific Temple Urine Protein Urine Glucose (UA) Urine Ketones Urine Occult Blood Urine Nitrate Urine Bilirubin Urine Urobilinogen Ur Leukocyte Esterase Urine RBC Urine WBC Ur Squamous Epith Cells Urine Bacteria Ur Culture Indicated? Ur Random Sodium Urine Creatinine Crossmatch 10/01/21 05:07 WBC RBC Hgb Hct MCV MCH MCHC RDW Plt Count Sodium 132 L Potassium 4.4 Chloride 101 Carbon Dioxide 24 BUN 37 H Creatinine 1.59 H Estimated GFR 32.2 L BUN/Creatinine Ratio 23.3 H Glucose 179 H Calcium 8.1 L Urine Color Urine Appearance Urine pH Ur Specific Temple Urine Protein Urine Glucose (UA) Urine Ketones Urine Occult Blood Urine Nitrate Urine Bilirubin Urine Urobilinogen Ur Leukocyte Esterase Urine RBC Urine WBC Ur Squamous Epith Cells Urine Bacteria Ur Culture Indicated? Ur Random Sodium Urine Creatinine Crossmatch [facility] Medical History Anemia Ankle pain Anxiety Asthma Astigmatism, bilateral Bronchitis Cataracts, bilateral Chicken pox Chronic back pain CKD (chronic kidney disease) Colon polyps (2012) Constipation Depression Diabetes mellitus DVT (deep venous thrombosis) Easy bruisability Fatigue Foot pain GERD (gastroesophageal reflux disease) Hearing loss (~2015) History of chemotherapy History of deep venous thrombosis (05/21/15) Hyperlipidemia Hypermetropia, bilateral Hypertension Migraines Mumps Obesity Osteoarthritis Otitis externa Pernicious anemia Post traumatic stress disorder (PTSD) Presbyopia Recurrent sinusitis Right knee pain RLS (restless legs syndrome) Sleep apnea Synovial cyst of popliteal space [Mancera], left knee Vertigo Vision disorder Surgical History History of arthroscopy of left knee History of colonoscopy with polypectomy (03/09/13) History of colonoscopy with polypectomy (11/04/16) History of hysterectomy (~1993) Hx of right breast biopsy (01/11/21) Status post epidural steroid injection (06/23/16) Status post epidural steroid injection (01/12/12) Status post epidural steroid injection (02/20/12) Family History Mother Diabetes mellitus Heart disease Hyperlipidemia Hypertension Sister Diabetes mellitus Heart disease Hyperlipidemia Hypertension Mental health problem Social History household members: family Smoking Status: Never smoker alcohol intake: current substance use type: does not use Assessment & Plan Post-op Postoperative Procedures: Procedures Operation Date: 09/29/21 11:30 Actual Procedure Side Surgeon p Incision and Drainage, debridement Right breast Right Mary Bueno MD Postoperative status narrative: 71 F POD 2 SP I & D of right breast. Improving. Cultures reviewed. Switching antibiotics to Amoxicillin and Cefdinir. If well tomorrow will discharge on PO antibiotics.
[2021-10-01] MEDS: GABAPENTIN 300 MG CAPSULE PO ×2 (15:44→21:10)
[2021-10-01] MEDS: AMOXICILLIN 250 MG CAPSULE 500 MG PO ×2 (15:44→21:11)
--- NOTE | 2021-10-01 18:21 | P.PN_ITS ---
Subjective Subjective Date Patient Seen: 10/01/21 Time Patient Seen: 14:30 Interval history: Today she feels much improved. Pain is well controlled. No fevers/chills .?Cultures returned with E. faecalis and E. coli. Faecalis was sensitive to ampicillin, E. coli was resistant to penicillin. Exam Vital Signs (past 8 hours): - 10/01/21 10:28 10/01/21 14:00 Temperature 97.7 F Pulse Rate 80 Respiratory Rate 18 Blood Pressure 141/58 H Pulse Oximetry 96 94 Oxygen Delivery Method Room Air Oxygen Flow Rate 0 Narrative Exam Narrative: GEN: no acute distress HEEN: moist mucous membranes, PERRL SKIN: SEYMOUR drain in place, right chest bandage clean, dry, intact CV: regular rate and rhythm PULM: clear bilaterally, no wheezes, rhonchi, rales ABD: soft, nontender, nondistended, no organomegaly EXT: warm and well perfused with no edema NEURO: awake alert oriented, no focal deficits PSYCH: pleasant Objective Labs Result Diagrams: 10/01/21 05:07 10/01/21 05:07 Labs: Laboratory Results - last 24 hr 10/01/21 10/01/21 05:07 05:07 WBC 1.5 L* RBC 2.59 L Hgb 8.0 L Hct 23.2 L MCV 89.7 MCH 30.8 MCHC 34.3 RDW 18.7 H Plt Count 93 L Sodium 132 L Potassium 4.4 Chloride 101 Carbon Dioxide 24 BUN 37 H Creatinine 1.59 H Estimated GFR 32.2 L BUN/Creatinine Ratio 23.3 H Glucose 179 H Calcium 8.1 L PFSH Medical History Anemia Ankle pain Anxiety Asthma Astigmatism, bilateral Bronchitis Cataracts, bilateral Chicken pox Chronic back pain CKD (chronic kidney disease) Colon polyps (2012) Constipation Depression Diabetes mellitus DVT (deep venous thrombosis) Easy bruisability Fatigue Foot pain GERD (gastroesophageal reflux disease) Hearing loss (~2015) History of chemotherapy History of deep venous thrombosis (05/21/15) Hyperlipidemia Hypermetropia, bilateral Hypertension Migraines Mumps Obesity Osteoarthritis Otitis externa Pernicious anemia Post traumatic stress disorder (PTSD) Presbyopia Recurrent sinusitis Right knee pain RLS (restless legs syndrome) Sleep apnea Synovial cyst of popliteal space [Mancera], left knee Vertigo Vision disorder Surgical History History of arthroscopy of left knee History of colonoscopy with polypectomy (03/09/13) History of colonoscopy with polypectomy (11/04/16) History of hysterectomy (~1993) Hx of right breast biopsy (01/11/21) Status post epidural steroid injection (06/23/16) Status post epidural steroid injection (01/12/12) Status post epidural steroid injection (02/20/12) Family History Mother Diabetes mellitus Heart disease Hyperlipidemia Hypertension Sister Diabetes mellitus Heart disease Hyperlipidemia Hypertension Mental health problem Social History household members: family Smoking Status: Never smoker alcohol intake: current substance use type: does not use Assessment & Plan Assessment & Plan narrative: Ms. Huggins is a 71W with PMH R breast cancer, triple negative, s/p neoadjuvant chemo and R mastectomy who presents with post surgical wound infection 1. Post surgical infection -has already been taken to OR for debridement and washout -cultures growing E faecalis and E.coli. Can discharge on amoxicillin and cefdinir. Ordered today to see if continued improvement as surgery plans for possible discharge tomorrow. 2. Anemia, pancytopenia -likely secondary to cancer, chemo, and recent surgery. maybe in combination with infection and antibiotic therapy. -patient hemodynamically stable currently, with no overt bleeding -already ordered 2U prbc, follow up repeat CBC was 7.7, order 1U PRBC additional now 8.0. Continue to monitor. 3. JOEL -likely secondary to infection -worsened to 2.29 on 09/30, now improved to 1.59. -stopped metformin, losartan, nsaids -ordered renal us which was unremarkable. 4. Type 2 Diabetes, on insulin -stop metfomrin -initially restarted insulin at 20U as was not eating normal, increased to 40U given high blood sugars and improved appetite -continue sliding scale 5. Breast cancer s/p neoadjuvant chemo -original path shows triple negative adenoCA -s/p mastectomy of right breast -path shows clear margins, negative lymph node 6. Morbid obesity, BMI 46.2 -risk factor for infection Thank you for this consult. We will continue to follow along with you. CODE: Full Proxy: Ria Sparrow, daughter I have utilized all available resources to reconcile the patient's home medications. Time Spent With Patient Critical Care time: I spent a total of [] minutes of critical care time on this patient's care today; this time is exclusive of procedural time.
[2021-10-01] MEDS: ATORVASTATIN 20 MG TABLET PO (21:10)
[2021-10-01] MEDS: SODIUM CHLORIDE 0.9% FLUSH 10 ML IV (21:12)
[2021-10-01] MEDS: INSULIN GLARGINE 100 UNIT/ML 3ML PEN 40 UNIT SUBCUT (21:15)
[2021-10-02 01:21] VITALS: BP 151/78; PULSE 81; RESP 17; TEMP 36.5; O2SAT 96
[2021-10-02] MEDS: HEPARIN 5,000 UNIT/ML VIAL 7500 UNIT SUBCUT (05:21)
[2021-10-02] MEDS: ONDANSETRON 4 MG ODT PO (05:32)
[2021-10-02 05:59] VITALS: BP 168/70; PULSE 90; RESP 17; TEMP 36.6; O2SAT 95
[2021-10-02 06:04] LABS: BUN Creatinine Ratio 21.4 (6-22); Blood Urea Nitrogen 24 mg/dL (7-17); Calcium 8.8 mg/dL (8.4-10.2); Carbon Dioxide 26 mmol/L (22-32); Chloride 104 mmol/L (98-107); Estimated Glomerular Filt Rate 48.2 mL/min (>60); Glucose 160 mg/dL (80-110); HEMOLYSIS < 15 (0-50); Potassium 4.2 mmol/L (3.4-5.1); Sodium 136 mmol/L (137-145)
[2021-10-02 06:06] LABS: Hemoglobin 8.2 g/dL (12.0-16.0); Mean Corpuscular HGB Conc 34.2 % (30-36); Mean Corpuscular Hemoglobin 30.6 PG (26-34); Mean Corpuscular Volume 89.7 fL (80-100); Platelet Count 95 X10^3/uL (150-400); Red Blood Cell Count 2.67 X10^6/uL (4.0-5.2); Red Cell Distribution Width 18.4 % (11.6-14.8)
[2021-10-02 06:16] LABS: Add Manual Diff / Slide Review YES; White Blood Cell Count 1.7 X10^3/uL (4.5-11.0)
[2021-10-02 06:51] LABS: Neutrophils Absolute Manual 1020 /uL (3000-5900); Total Cells Counted 50
[2021-10-02 06:53] LABS: Anisocytosis 2+
[2021-10-02 08:08] VITALS: BP 151/62; PULSE 89; RESP 19; TEMP 35.8; O2SAT 96
[2021-10-02] MEDS: SERTRALINE 50 MG TABLET 100 MG PO (08:55)
[2021-10-02] MEDS: AMOXICILLIN 250 MG CAPSULE 500 MG PO (08:55)
[2021-10-02] MEDS: CEFDINIR 300 MG CAPSULE PO (08:55)
[2021-10-02] MEDS: PANTOPRAZOLE DR 20 MG TABLET PO (08:55)
[2021-10-02] MEDS: GABAPENTIN 300 MG CAPSULE PO (08:55)
[2021-10-02] MEDS: PRENATAL VIT,CALC/IRON/FOLIC 1 TABLET 1 TAB PO (08:55)
[2021-10-02] MEDS: SODIUM CHLORIDE 0.9% FLUSH 10 ML IV (08:56)
[2021-10-02] MEDS: INSULIN LISPRO 100 UNIT/ML 3ML VIAL SUBCUT (08:58)
--- NOTE | 2021-10-02 10:07 | PM.DS.1 ---
History of Present Illness History of Present Illness Date Patient Seen: 10/02/21 Time Patient Seen: 10:07 Chief complaint: Poss infection post surg Narrative: 71 year old woman with morbid obestity, and diabetes who is admitted for a right breast infection following mastectomy. History of triple negative breast cancer has undergone neoadjuvant therapy followed by right mastectomy and SLNB 09/12/2021. Post operatively she developed and abscess of the right chest wall was admitted for incision and drainage. Discharge Providers Provider Date of admission: 09/28/21 20:24 Discharge Date: 10/02/21 Primary care physician: Wilfredo Zazueta MD Consults: 09/29/21 13:09 Consult to Physician Routine Comment: Consulting Provider: [facility] Reason for consultation: neutropenic, septic, diabetic Has provider been notified: Yes Discharge provider: Koby Ramos MD Summary Hospital Course Discharge Diagnosis: morbid obesity, BMI 48 diabetes melitus breast cancer post operative infection of breast incision Hospital Course: Patient underwent a right chest incision and drainage of the mastectomy wound 09/29/2021. Cultures demonstrated E coli and Enterococcus. She remained hospitalized for IV antibiotic therapy until cultures and sensitivities finalized. At discharge she is feeling well she is afebrile drain is serosanguineous and her pain is well controlled. She is discharged on Augmentin and cefdinir for 1 week. She will follow up in the surgical clinic next week for drain removal. Status at Discharge Cognitive/behavioral status at discharge: oriented Exam Vital Signs (past 8 hours): - 10/02/21 05:59 10/02/21 08:08 Temperature 97.9 F 96.4 F L Pulse Rate 90 89 Respiratory Rate 17 19 Blood Pressure 168/70 H 151/62 H Pulse Oximetry 95 96 Fraction of Inspired Oxygen 0 Oxygen Delivery Method Room Air Oxygen Flow Rate 0 Narrative Exam Narrative: General adult woman alert oriented no acute distress Chest nonlabored respirations Right breast axillary incision clean dry intact. Drain serosanguineous. Mastectomy incision clean dry intact without warmth or cellulitis Objective Labs Result Diagrams: 10/02/21 05:30 10/02/21 05:30 Labs: Laboratory Results - last 24 hr 10/02/21 10/02/21 05:30 05:30 WBC 1.7 L* RBC 2.67 L Hgb 8.2 L Hct 24.0 L MCV 89.7 MCH 30.6 MCHC 34.2 RDW 18.4 H Plt Count 95 L Neut % (Auto) Not Reportable Lymph % (Auto) Not Reportable Calhoun % (Auto) Not Reportable Eos % (Auto) Not Reportable Baso % (Auto) Not Reportable Lymph # (Auto) Not Reportable [place]oun # (Auto) Not Reportable Baso # (Auto) Not Reportable Total Counted 50 Seg Neutrophils % 50.0 Band Neutrophils % 10.0 H Lymphocytes % (Manual) 18.0 L Atypical Lymphs % 2.0 H Monocytes % (Manual) 18.0 H Eosinophils % (Manual) 2.0 Neutrophils # (Manual) 1020 L RBC Morphology See below Anisocytosis 2+ H Sodium 136 L Potassium 4.2 Chloride 104 Carbon Dioxide 26 BUN 24 H Creatinine 1.12 H Estimated GFR 48.2 L BUN/Creatinine Ratio 21.4 Glucose 160 H Calcium 8.8 PFSH Medical History Anemia Ankle pain Anxiety Asthma Astigmatism, bilateral Bronchitis Cataracts, bilateral Chicken pox Chronic back pain CKD (chronic kidney disease) Colon polyps (2012) Constipation Depression Diabetes mellitus DVT (deep venous thrombosis) Easy bruisability Fatigue Foot pain GERD (gastroesophageal reflux disease) Hearing loss (~2015) History of chemotherapy History of deep venous thrombosis (05/21/15) Hyperlipidemia Hypermetropia, bilateral Hypertension Migraines Mumps Obesity Osteoarthritis Otitis externa Pernicious anemia Post traumatic stress disorder (PTSD) Presbyopia Recurrent sinusitis Right knee pain RLS (restless legs syndrome) Sleep apnea Synovial cyst of popliteal space [Mancera], left knee Vertigo Vision disorder Surgical History History of arthroscopy of left knee History of colonoscopy with polypectomy (03/09/13) History of colonoscopy with polypectomy (11/04/16) History of hysterectomy (~1993) Hx of right breast biopsy (01/11/21) Status post epidural steroid injection (06/23/16) Status post epidural steroid injection (01/12/12) Status post epidural steroid injection (02/20/12) Family History Mother Diabetes mellitus Heart disease Hyperlipidemia Hypertension Sister Diabetes mellitus Heart disease Hyperlipidemia Hypertension Mental health problem Social History household members: family Smoking Status: Never smoker alcohol intake: current substance use type: does not use Discharge Plan Discharge Plan Patient Disposition: Home Provider Discharge Comment: Okay to shower Drain removal 10/07 in surgical clinic Discharge orders & Medications Prescriptions: New amoxicillin-pot clavulanate [Augmentin] 500-125 mg tablet 1 tab PO BID Qty: 14 0RF cefdinir 300 mg capsule 300 mg PO BID Qty: 14 0RF Continued (DME) One Touch Ultra test strips Qty: 100 5RF Dose Instruction: As directed Rx Instructions: Check blood sugar four times daily. aspirin 81 mg tablet,delayed release (DR/EC) 81 mg PO DAILY 0RF sertraline [Zoloft] 100 mg tablet 100 mg PO QDAY Qty: 90 2RF omeprazole 20 mg capsule,delayed release(DR/EC) 20 mg PO Q DAY Qty: 90 2RF simvastatin [Zocor] 40 mg tablet 40 mg PO HS Qty: 90 2RF diazepam 5 mg tablet 5 mg PO BID PRN (Reason: anxiety) Qty: 60 2RF metoprolol tartrate 50 mg tablet 50 mg PO BID Qty: 180 2RF losartan-hydrochlorothiazide 100-25 mg tablet 1 tab PO QDAY Qty: 90 1RF Rx Instructions: pt will need to be seen by december 2021 (DME) Basaglar pen needles 31G X 8MM (11/25) See Rx Instructions .Route .MEDSUPPLY Qty: 100 3RF Rx Instructions: Use needles to inject Basaglar once daily insulin lispro sliding scale 30 unit subcut PRN PRN (Reason: Hyperglycemia) 0RF Rx Instructions: 2 units for every 25mg/dL glucose over 150. (DME) Parking Permit... See Rx Instructions .ROUTE .MEDSUPPLY Qty: 1 0RF Rx Instructions: As directed ondansetron 4 mg Tablet,Disintegrating 4 mg PO Q6H Qty: 60 2RF Rx Instructions: 1# q6h prn metformin 850 mg tablet 850 mg PO DAILY 0RF gabapentin [Neurontin] 300 mg capsule 300 mg PO TID 0RF albuterol sulfate 90 mcg/actuation HFA aerosol inhaler 90 mcg INHALATION PRN PRN (Reason: Adequate Ventilation) 0RF insulin lispro [Humalog KwikPen Insulin] 100 unit/mL insulin pen 40 unit SUBCUT QAC 0RF Follow up/Referrals: Koby Ramos MD [Physician] - 10/07/21 1:15 pm (10/07 @ 1:15 w/dr ramos for Drain removal) Skin/Wound/Dressing Care Report to your healthcare provider any signs of infection, such as:: chills, fever, increased pain, unusual drainage and unusual redness Visit Report/Discharge Packet Instructions: DI for Ty-Osborne Drains, Surgical Site Infection, What to Eat if You Have Diabetes Discharge Data Primary Care Provider: Wilfredo Zazueta
--- NOTE | 2021-10-02 10:19 | PC.NURSE ---
Pt dc'd to home at 0950. Daughter at bedside for dc teaching. Reviewed medications (new rx abx, dose, route, time, next schedule, etc), s/s of wound infection, when to call/seek emergency medical treatment, reviewed instructions on caring for SEYMOUR drain, reviewed diabetes mgmt and diet. Pt and daughter verbalize understanding. Port was deaccessed. Pt tolerated well. Pt dressed herself and transferred to w/c. Pt was brought to POV via w/c in no distress with all belongings.
== END 2021-10-02 09:50 | disposition home or self-care (01) | DRG 856 ==
LOC: ED 20:12 → AC 20:25
PROVIDERS: Internal Medicine; Admitting Provider Surgery; Emergency Provider Emergency Medicine; PCP Student in an Organized Health Care Education/Training Program; Referring Provider Emergency Medicine; Visit Provider Surgery
PROC: 0JB60ZZ Excision of Chest Subcutaneous Tissue and Fascia, Open Approach (ICD-10-PCS; principal; 2021-09-29 11:30)
DX: T81.41XA Infection following a procedure, superficial incisional surgical site, initial encounter (principal); A41.9 Sepsis, unspecified organism; R65.20 Severe sepsis without septic shock; D61.810 Antineoplastic chemotherapy induced pancytopenia; N17.9 Acute kidney failure, unspecified; M96.843 Postprocedural seroma of a musculoskeletal structure following other procedure; Z68.42 Body mass index [BMI] 45.0-49.9, adult; Z16.11 Resistance to penicillins; I95.9 Hypotension, unspecified; E66.01 Morbid (severe) obesity due to excess calories; C50.911 Malignant neoplasm of unspecified site of right female breast; D63.0 Anemia in neoplastic disease; B96.20 Unspecified Escherichia coli [E. coli] as the cause of diseases classified elsewhere; B95.2 Enterococcus as the cause of diseases classified elsewhere; E11.9 Type 2 diabetes mellitus without complications; F32.A Depression, unspecified; K21.9 Gastro-esophageal reflux disease without esophagitis; E78.5 Hyperlipidemia, unspecified; I10 Essential (primary) hypertension; Z79.84 Long term (current) use of oral hypoglycemic drugs; Z20.822 Contact with and (suspected) exposure to COVID-19; Z79.4 Long term (current) use of insulin
CPT/HCPCS: 10180; 36415; 36430; 76770; 80048; 80053; 81001; 82550; 82570; 82962; 83605; 84145; 84300; 84484; 85007; 85025; 85027; 86850; 86900; 86901; 87040; 87070; 87075; 87077; 87086; 87185; 87186; 87205; 87635; 93005; 93010; 94762; 96374; 96375; 99232; 99284; C9803; P9016; J1100; J1642; J1644; J1815; J1885; J2250; J2270; J2543; J2704; J3010

== ENCOUNTER → 2021-10-10 17:10 | Outpatient (CLI) | payer MEDICARE, SELFPAY ==
[2021-10-02 08:58] VITALS: BMI 46.1
== END ==
PROVIDERS: PCP Student in an Organized Health Care Education/Training Program; Visit Provider Surgery
DX: T81.49XA Infection following a procedure, other surgical site, initial encounter (principal)
CPT/HCPCS: 87070; 87075; 87077; 87186; 87205

== ENCOUNTER → 2021-10-14 09:16 | Outpatient (CLI) | payer MEDICARE, SELFPAY ==
[2021-10-02 08:58] VITALS: BMI 46.1
== END ==
PROVIDERS: Family Provider Surgery; PCP Student in an Organized Health Care Education/Training Program; Referring Provider Surgery; Visit Provider Family Medicine
DX: T81.31XA Disruption of external operation (surgical) wound, not elsewhere classified, initial encounter (principal); S21.001A Unspecified open wound of right breast, initial encounter; S41.101A Unspecified open wound of right upper arm, initial encounter; L08.9 Local infection of the skin and subcutaneous tissue, unspecified; B96.29 Other Escherichia coli [E. coli] as the cause of diseases classified elsewhere; C50.911 Malignant neoplasm of unspecified site of right female breast; D61.810 Antineoplastic chemotherapy induced pancytopenia; E11.628 Type 2 diabetes mellitus with other skin complications; Z90.11 Acquired absence of right breast and nipple; Z79.4 Long term (current) use of insulin; Z79.84 Long term (current) use of oral hypoglycemic drugs
CPT/HCPCS: 11042; 97607; 99204; 99213

== ENCOUNTER → 2021-10-17 | Outpatient (CLI) | payer MEDICARE, SELFPAY ==
[2021-10-02 08:58] VITALS: BMI 46.1
== END ==
PROVIDERS: Family Provider Surgery; PCP Student in an Organized Health Care Education/Training Program; Referring Provider Student in an Organized Health Care Education/Training Program; Visit Provider Family Medicine
DX: S21.001A Unspecified open wound of right breast, initial encounter (principal); S41.101A Unspecified open wound of right upper arm, initial encounter
CPT/HCPCS: 97607

== ENCOUNTER → 2021-10-21 16:10 | Outpatient (CLI) | payer MEDICARE, SELFPAY ==
[2021-10-02 08:58] VITALS: BMI 46.1
== END ==
PROVIDERS: Family Provider Surgery; PCP Student in an Organized Health Care Education/Training Program; Referring Provider Student in an Organized Health Care Education/Training Program; Visit Provider Family Medicine
DX: T81.31XA Disruption of external operation (surgical) wound, not elsewhere classified, initial encounter (principal); S21.001A Unspecified open wound of right breast, initial encounter; S41.101A Unspecified open wound of right upper arm, initial encounter; L08.9 Local infection of the skin and subcutaneous tissue, unspecified; B96.29 Other Escherichia coli [E. coli] as the cause of diseases classified elsewhere; C50.911 Malignant neoplasm of unspecified site of right female breast; E11.628 Type 2 diabetes mellitus with other skin complications; D61.810 Antineoplastic chemotherapy induced pancytopenia; Z90.11 Acquired absence of right breast and nipple; Z79.4 Long term (current) use of insulin; Z79.84 Long term (current) use of oral hypoglycemic drugs
CPT/HCPCS: 11042; 97607

== ENCOUNTER → 2021-10-24 10:43 | Outpatient (CLI) | payer MEDICARE, SELFPAY ==
[2021-10-02 08:58] VITALS: BMI 46.1
== END ==
PROVIDERS: Family Provider Surgery; PCP Student in an Organized Health Care Education/Training Program; Referring Provider Student in an Organized Health Care Education/Training Program; Visit Provider Family Medicine
DX: T81.89XA Other complications of procedures, not elsewhere classified, initial encounter (principal); S21.001A Unspecified open wound of right breast, initial encounter; S41.101A Unspecified open wound of right upper arm, initial encounter
CPT/HCPCS: 97607

== ENCOUNTER → 2021-10-29 14:19 | Outpatient (CLI) | payer MEDICARE, SELFPAY ==
[2021-10-02 08:58] VITALS: BMI 46.1
== END ==
PROVIDERS: Family Provider Surgery; PCP Student in an Organized Health Care Education/Training Program; Referring Provider Student in an Organized Health Care Education/Training Program; Visit Provider Family Medicine
DX: T81.31XA Disruption of external operation (surgical) wound, not elsewhere classified, initial encounter (principal); S21.001A Unspecified open wound of right breast, initial encounter; S41.101A Unspecified open wound of right upper arm, initial encounter; C50.911 Malignant neoplasm of unspecified site of right female breast; E11.628 Type 2 diabetes mellitus with other skin complications; D61.810 Antineoplastic chemotherapy induced pancytopenia
CPT/HCPCS: 11042; 97607

== ENCOUNTER → 2021-10-31 13:23 | Outpatient (CLI) | payer MEDICARE, SELFPAY ==
[2021-10-02 08:58] VITALS: BMI 46.1
== END ==
PROVIDERS: Family Provider Surgery; PCP Student in an Organized Health Care Education/Training Program; Referring Provider Student in an Organized Health Care Education/Training Program; Visit Provider Family Medicine
DX: T81.89XA Other complications of procedures, not elsewhere classified, initial encounter (principal); S21.001A Unspecified open wound of right breast, initial encounter; S41.101A Unspecified open wound of right upper arm, initial encounter
CPT/HCPCS: 97607

== ENCOUNTER → 2021-11-04 13:36 | Outpatient (CLI) | payer MEDICARE, SELFPAY ==
[2021-10-02 08:58] VITALS: BMI 46.1
== END ==
PROVIDERS: Family Provider Surgery; PCP Student in an Organized Health Care Education/Training Program; Referring Provider Student in an Organized Health Care Education/Training Program; Visit Provider Family Medicine
DX: S21.001A Unspecified open wound of right breast, initial encounter (principal); S41.101A Unspecified open wound of right upper arm, initial encounter; T81.31XA Disruption of external operation (surgical) wound, not elsewhere classified, initial encounter; C50.411 Malignant neoplasm of upper-outer quadrant of right female breast; D61.810 Antineoplastic chemotherapy induced pancytopenia; E11.628 Type 2 diabetes mellitus with other skin complications; Z90.11 Acquired absence of right breast and nipple; Z92.21 Personal history of antineoplastic chemotherapy
CPT/HCPCS: 11042; 97607

== ENCOUNTER → 2021-11-07 10:14 | Outpatient (CLI) | payer MEDICARE, SELFPAY ==
[2021-10-02 08:58] VITALS: BMI 46.1
== END ==
PROVIDERS: Family Provider Surgery; PCP Student in an Organized Health Care Education/Training Program; Referring Provider Student in an Organized Health Care Education/Training Program; Visit Provider Family Medicine
DX: S21.001A Unspecified open wound of right breast, initial encounter (principal)
CPT/HCPCS: 97607

== ENCOUNTER → 2021-11-11 15:34 | Outpatient (CLI) | payer MEDICARE, SELFPAY ==
[2021-10-02 08:58] VITALS: BMI 46.1
== END ==
PROVIDERS: Family Provider Surgery; PCP Student in an Organized Health Care Education/Training Program; Referring Provider Student in an Organized Health Care Education/Training Program; Visit Provider Family Medicine
DX: T81.31XA Disruption of external operation (surgical) wound, not elsewhere classified, initial encounter (principal); S21.001A Unspecified open wound of right breast, initial encounter; S41.101A Unspecified open wound of right upper arm, initial encounter; C50.911 Malignant neoplasm of unspecified site of right female breast; E11.628 Type 2 diabetes mellitus with other skin complications; D61.810 Antineoplastic chemotherapy induced pancytopenia; Z79.899 Other long term (current) drug therapy; Z90.11 Acquired absence of right breast and nipple; Z79.84 Long term (current) use of oral hypoglycemic drugs
CPT/HCPCS: 11042; 97607; 99212

== ENCOUNTER → 2021-11-14 15:20 | Outpatient (CLI) | payer MEDICARE, SELFPAY ==
[2021-10-02 08:58] VITALS: BMI 46.1
== END ==
PROVIDERS: Family Provider Surgery; PCP Student in an Organized Health Care Education/Training Program; Referring Provider Student in an Organized Health Care Education/Training Program; Visit Provider Family Medicine
DX: T81.89XA Other complications of procedures, not elsewhere classified, initial encounter (principal); S21.001A Unspecified open wound of right breast, initial encounter; S41.101A Unspecified open wound of right upper arm, initial encounter
CPT/HCPCS: 97607; 99212

== ENCOUNTER → 2021-11-21 14:46 | Outpatient (CLI) | payer MEDICARE, SELFPAY ==
[2021-10-02 08:58] VITALS: BMI 46.1
== END ==
PROVIDERS: Family Provider Surgery; PCP Student in an Organized Health Care Education/Training Program; Referring Provider Student in an Organized Health Care Education/Training Program; Visit Provider Family Medicine
DX: T81.31XA Disruption of external operation (surgical) wound, not elsewhere classified, initial encounter (principal); C50.911 Malignant neoplasm of unspecified site of right female breast; D61.810 Antineoplastic chemotherapy induced pancytopenia; Z79.899 Other long term (current) drug therapy; Z90.11 Acquired absence of right breast and nipple
CPT/HCPCS: 97607; 99213

== ENCOUNTER → 2021-11-28 14:09 | Outpatient (CLI) | payer MEDICARE, SELFPAY ==
[2021-10-02 08:58] VITALS: BMI 46.1
== END ==
PROVIDERS: Family Provider Surgery; PCP Student in an Organized Health Care Education/Training Program; Referring Provider Student in an Organized Health Care Education/Training Program; Visit Provider Family Medicine
DX: T81.31XA Disruption of external operation (surgical) wound, not elsewhere classified, initial encounter (principal); C50.911 Malignant neoplasm of unspecified site of right female breast; E11.628 Type 2 diabetes mellitus with other skin complications; D61.810 Antineoplastic chemotherapy induced pancytopenia; Z79.899 Other long term (current) drug therapy; Z79.4 Long term (current) use of insulin; Z79.84 Long term (current) use of oral hypoglycemic drugs; Z90.11 Acquired absence of right breast and nipple
CPT/HCPCS: 11042

== ENCOUNTER → 2021-12-12 12:05 | Outpatient (CLI) | payer MEDICARE, SELFPAY ==
[2021-10-02 08:58] VITALS: BMI 46.1
== END ==
PROVIDERS: Family Provider Surgery; PCP Student in an Organized Health Care Education/Training Program; Referring Provider Student in an Organized Health Care Education/Training Program; Visit Provider Family Medicine
DX: Z09 Encounter for follow-up examination after completed treatment for conditions other than malignant neoplasm (principal); C50.911 Malignant neoplasm of unspecified site of right female breast; D61.810 Antineoplastic chemotherapy induced pancytopenia; Z79.899 Other long term (current) drug therapy; Z87.2 Personal history of diseases of the skin and subcutaneous tissue
CPT/HCPCS: 99212; 99213

== ENCOUNTER → 2022-01-23 13:36 | Outpatient (CLI) | payer MEDICARE, SELFPAY ==
[2021-10-02 08:58] VITALS: BMI 46.1
--- NOTE | 2022-01-23 13:37 | DI.RAD.S_ITS ---
PROCEDURE: XR HIP W PEL IF DONE TAJ MIN 4V INDICATIONS: Bilateral hip pain with h/o OA TECHNIQUE: AP pelvis with lateral view(s) of the bilateral hip(s). COMPARISON: [facility], , XR HIP W PEL IF DONE RT 2V, 02/24/2019, 10:52. FINDINGS: Bones: No fractures or dislocations. Pelvic ring appears intact. No suspicious bony lesions. Moderate to severe bilateral, right greater than left hip joint space narrowing. Periarticular osteophytes are present. No definitive erosions. Soft tissues: The visualized bowel gas pattern is normal. No suspicious soft tissue calcifications. IMPRESSION: Bilateral hip osteoarthritis, right greater than left. Dictated by: Opehlia Rai M.D. on 01/23/2022 at 14:41 Approved by: Ophelia Rai M.D. on 01/23/2022 at 14:42
== END ==
PROVIDERS: Family Provider Surgery; PCP Student in an Organized Health Care Education/Training Program; Referring Provider Student in an Organized Health Care Education/Training Program; Visit Provider Student in an Organized Health Care Education/Training Program
DX: M16.0 Bilateral primary osteoarthritis of hip (principal)
CPT/HCPCS: 73522

== ENCOUNTER → 2022-02-06 11:18 | Outpatient (CLI) | payer MEDICARE, SELFPAY ==
[2021-10-02 08:58] VITALS: BMI 46.1
--- NOTE | 2022-02-06 11:20 | DI.RAD.S_ITS ---
PROCEDURE: XR DEXA AXIAL SKELETON INDICATIONS: Bilateral hip pain with h/o OA COMPARISON: [facility], CR, XR DEXA AXIAL SKELETON, 04/02/2018, 13:28. FINDINGS: This blank DEXA report has been sent in error by the PACS system. The correct and complete report will be forthcoming in 1-2 days. Thank you for your patience and understanding. Dictated by: Ritu Cohen M.D. on 02/06/2022 at 13:43 Approved by: Ritu Cohen M.D. on 02/06/2022 at 13:44
== END ==
PROVIDERS: Family Provider Surgery; PCP Student in an Organized Health Care Education/Training Program; Referring Provider Student in an Organized Health Care Education/Training Program; Visit Provider Student in an Organized Health Care Education/Training Program
DX: Z78.0 Asymptomatic menopausal state (principal); Z13.820 Encounter for screening for osteoporosis; Z92.23 Personal history of estrogen therapy; Z90.710 Acquired absence of both cervix and uterus
CPT/HCPCS: 77080

== ENCOUNTER → 2022-03-20 13:53 | Outpatient (CLI) | payer MEDICARE, SELFPAY ==
[2021-10-02 08:58] VITALS: BMI 46.1
--- NOTE | 2022-03-20 13:54 | DI.CT.S_ITS ---
PROCEDURE: CT CHEST WO CON INDICATIONS: on immunotherpay, left lung base fine crackles. TECHNIQUE: Noncontrast 5 mm thick sections acquired from the pulmonary apices to the posterior costophrenic angles. 1 mm lung window, 5 mm thick coronal and sagittal and 7 mm axial MIP reformats were then acquired. For radiation dose reduction, the following was used: automated exposure control, adjustment of mA and/or kV according to patient size. COMPARISON: [facility], CT, CT CHEST WO [facility], 02/07/2021, 12:14. FINDINGS: Image quality: Excellent. Lungs and pleura: No acute air space opacities. Mild scarring within the right lateral lung base. No pleural effusions or pneumothorax. Central and peripheral airways are patent and normal in caliber. Mediastinum: Heart size is normal. Mild calcification of the coronary vasculature. No pericardial effusion. No mediastinal adenopathy by size criteria. Thoracic aorta and central pulmonary arteries are normal in size. Esophagus is normal in caliber. No hiatal hernia. Bones and chest wall: Scarring within the region of the previously seen right breast nodule. Left chest wall port catheter, tip of which is in the lower SVC. No suspicious bony lesions. No vertebral body compression fractures. No axillary or supraclavicular adenopathy by size criteria. Thyroid gland is within normal limits . Abdomen: Visualized upper abdominal solid organs and bowel loops appear normal in the absence of contrast. IMPRESSION: 1. No acute process. 2. Status post presumed resection of right breast mass. 3. Coronary artery disease. Dictated by: Rain Lindo M.D. on 03/20/2022 at 14:13 Approved by: Rain Lindo M.D. on 03/20/2022 at 14:14
== END ==
PROVIDERS: Family Provider Surgery; PCP Student in an Organized Health Care Education/Training Program; Referring Provider Internal Medicine Hematology & Oncology; Visit Provider Internal Medicine Hematology & Oncology
DX: C50.411 Malignant neoplasm of upper-outer quadrant of right female breast (principal); J84.9 Interstitial pulmonary disease, unspecified
CPT/HCPCS: 71250

== ENCOUNTER → 2022-08-25 09:30 | Outpatient (CLI) | payer MEDICARE, SELFPAY ==
[2021-10-02 08:58] VITALS: BMI 46.1
[2022-08-25 10:31] LABS: Hemoglobin A1C% w Est Avg Glu 7.7 % (4.0-6.0)
[2022-08-25 11:00] LABS: Cholesterol 169 mg/dL (140-199); HDL Cholesterol 39 mg/dL (40-60); Triglycerides 430 mg/dL (35-150)
== END ==
PROVIDERS: Family Provider Surgery; PCP Student in an Organized Health Care Education/Training Program; Referring Provider Student in an Organized Health Care Education/Training Program; Visit Provider Student in an Organized Health Care Education/Training Program
DX: E11.42 Type 2 diabetes mellitus with diabetic polyneuropathy (principal); E78.5 Hyperlipidemia, unspecified; E11.69 Type 2 diabetes mellitus with other specified complication; I10 Essential (primary) hypertension; Z79.4 Long term (current) use of insulin
CPT/HCPCS: 36415; 80061; 83036

== ENCOUNTER 2023-08-17 18:37 | Emergency (ER) | payer MEDICARE, SELFPAY ==
[2021-10-02 08:58] VITALS: BMI 46.1
[2023-08-17] VITALS (13 sets, daily range): BP systolic 140–189; BP diastolic 65–109; PULSE 67–91; RESP 18–30; TEMP 36.6; O2SAT 94–99; BMI 49.7
[2023-08-17] MEDS: ONDANSETRON 4 MG/2 ML INJ IV (19:03)
[2023-08-17 19:18] LABS: Add Manual Diff / Slide Review NO; Basophils Absolute Auto 0 /uL (0-100); Basophils Percent Auto 0.6 % (0-2); Eosinophils Absolute Auto 0 /uL (0-450); Eosinophils Percent Auto 0.7 % (2-4); Hematocrit 33.4 % (36-46); Hemoglobin 11.5 g/dL (12.0-16.0); Lymphocytes Absolute Auto 1600 /uL (1100-4500); Lymphocytes Percent Auto 24.8 % (25-40); Mean Corpuscular HGB Conc 34.3 % (30-36); Mean Corpuscular Hemoglobin 29.5 PG (26-34); Mean Corpuscular Volume 85.9 fL (80-100); Monocytes Absolute Auto 400 /uL (0-900); Monocytes Percent Auto 6.5 % (3-14); Neutrophils Absolute Auto 4400 /uL (1500-7000); Neutrophils Percent Auto 67.4 % (50-75); Platelet Count 194 X10^3/uL (150-400); Red Blood Cell Count 3.89 X10^6/uL (4.0-5.2); Red Cell Distribution Width 14.8 % (11.6-14.8); White Blood Cell Count 6.6 X10^3/uL (4.5-11.0)
[2023-08-17] MEDS: SODIUM CHLORIDE 0.9% 1,000 ML 1000 ML IV ×2 (19:24→21:10)
[2023-08-17 19:38] LABS: Alanine Aminotransferase 27 IU/L (<35); Albumin 4.8 g/dL (3.5-5.0); Albumin Globulin Ratio 1.7 (1.0-2.8); Alkaline Phosphatase 65 U/L (38-126); Aspartate Aminotransferase 46 IU/L (14-36); BUN Creatinine Ratio 24.3 (6-22); Bilirubin Total 1.4 mg/dL (0.2-1.3); Blood Urea Nitrogen 27 mg/dL (7-17); Calcium 9.7 mg/dL (8.4-10.2); Carbon Dioxide 20 mmol/L (22-32); Chloride 95 mmol/L (98-107); Estimated Glomerular Filt Rate 53 mL/min (>60); Globulin 2.9 g/dL (1.7-4.1); Glucose 227 mg/dL (80-110); Potassium 4.6 mmol/L (3.4-5.1); Sodium 132 mmol/L (137-145); Total Protein 7.7 g/dL (6.3-8.2)
[2023-08-17 19:45] LABS: HEMOLYSIS 58 (0-50)
--- NOTE | 2023-08-17 20:01 | ED_ITS ---
HPI - Nausea/Vomiting/Diarrhea General Chief complaint: Nausea/Vomiting/Diarrhea Stated complaint: SOB/V Time Seen by Provider: 08/17/23 19:31 Source: patient and family Mode of arrival: Wheelchair History of Present Illness HPI Narrative: Patient is a 73-year-old female history of insulin-dependent diabetes, hypertension, hyperlipidemia presenting today with nausea vomiting and diarrhea ongoing for the last 2-3 days. She reports unable to keep anything down feels like her mouth is very dry. She has shortness of breath and orthopnea which is not any worse than normal. She denies any chest pain. She has minimal abdominal pain she has some cramping. She has really been unable to keep any liquids down they got some Pedialyte today which she threw up. She would 2 episodes of diarrhea today as well. She denies any fever chills as well. Related Data Home Medications Medication Instructions Recorded Confirmed aspirin 81 mg tablet,delayed 81 mg PO DAILY 08/25/19 06/25/23 release acetaminophen 500 mg tablet 1,000 mg PO Q6H PRN Pain (Scale 02/06/22 06/25/23 Score 4-6) Previous Rx's Medication Instructions Recorded One Touch Ultra test strips #100 ea 07/19/19 Continuous Glucose Monitor #1 ea 05/21/22 gabapentin 600 mg tablet 600 mg PO TID #270 tabs 11/13/22 metoprolol tartrate 50 mg tablet 50 mg PO BID #180 tabs 02/16/23 celecoxib 200 mg capsule 200 mg PO DAILY #90 caps 03/02/23 albuterol sulfate 90 mcg/actuation 90 mcg inhalation PRN PRN Adequate 06/16/23 aerosol inhaler Ventilation #8.5 grams Disabled Parking Permit #1 ea 06/25/23 losartan 100 1 tab PO DAILY #30 tabs 07/07/23 mg-hydrochlorothiazide 25 mg tablet sertraline 100 mg tablet (Zoloft) 100 mg PO QDAY #90 tabs 07/22/23 insulin NPH isoph U-100 human 100 25 unit (0.25 mL) SUBCUT BID #30 mL 08/03/23 unit/mL (3 mL) subcutaneous pen (Humulin N NPH U-100 Insulin KwikPen) metformin 1,000 mg tablet 1,000 mg PO BID #180 tabs 08/05/23 omeprazole 20 mg capsule,delayed 20 mg PO Q DAY #90 caps 08/11/23 release simvastatin 40 mg tablet (Zocor) 40 mg PO HS #90 tabs 08/11/23 blood-glucose meter,continuous #1 ea 08/14/23 (Dexcom G7 Construction Coordinator) blood-glucose sensor (Dexcom G7 #3 ea 08/14/23 Sensor device) insulin lispro 100 unit/mL 25 unit (0.25 mL) SUBCUT BID #15 mL 08/14/23 subcutaneous pen (Humalog KwikPen (U-100) Insulin) ondansetron 4 mg disintegrating 4 mg PO Q8H PRN nausea and 08/17/23 tablet vomiting #10 tabs ondansetron HCl 4 mg tablet 4 mg PO Q4H PRN nausea and 08/17/23 vomiting #30 tabs Allergies Allergy/AdvReac Type Severity Reaction Status Date / Time AMANUEL Inhibitors Allergy Mild Cough Verified 06/25/23 15:09 [AMANUEL INHIBITORS] cat dander [CAT DANDER] Allergy Unknown Verified 06/25/23 15:09 dog dander [DOG DANDER] Allergy Unknown Verified 06/25/23 15:09 latex Allergy Unknown Pt does Verified 06/25/23 15:09 not list reaction Patient History Medical History Anemia Ankle pain Asthma Astigmatism, bilateral Bilateral cataracts Bronchitis Cataracts, bilateral Chicken pox Chronic back pain CKD (chronic kidney disease) Colon polyps (2012) Constipation Depression Diabetes mellitus DVT (deep venous thrombosis) Easy bruisability Fatigue Foot pain GERD (gastroesophageal reflux disease) Hearing loss (~2015) History of chemotherapy History of deep venous thrombosis (05/21/15) Hyperlipidemia Hypermetropia, bilateral Hypertension Migraines Mumps Obesity Obstructive sleep apnea syndrome (05/21/15) Osteoarthritis Otitis externa Pernicious anemia Post traumatic stress disorder (PTSD) Presbyopia Recurrent sinusitis Right knee pain RLS (restless legs syndrome) Sleep apnea Synovial cyst of popliteal space [Mancera], left knee Vertigo Vision disorder Surgical History History of arthroscopy of left knee History of colonoscopy with polypectomy (03/09/13) History of colonoscopy with polypectomy (11/04/16) History of hysterectomy (~1993) Hx of right breast biopsy (01/11/21) Status post epidural steroid injection (06/23/16) Status post epidural steroid injection (01/12/12) Status post epidural steroid injection (02/20/12) Family History Mother Diabetes mellitus Heart disease Hyperlipidemia Hypertension Sister Diabetes mellitus Heart disease Hyperlipidemia Hypertension Mental health problem Social History household members: family Smoking Status: Never smoker alcohol intake: current substance use type: does not use Smoking Status: Never smoker alcohol intake frequency: holidays/special occasions only Substance Use Type: does not use Exam Initial Vital Signs Initial Vital Signs: Vital Signs Temperature 97.9 F 08/17/23 18:50 Pulse Rate 91 H 08/17/23 18:50 Respiratory Rate 30 H 08/17/23 18:50 Blood Pressure 140/79 08/17/23 18:50 Pulse Oximetry 96 08/17/23 18:50 Oxygen Delivery Method Room Air 08/17/23 18:50 GENERAL: Patient is 73-year-old female appears to not feel well HEENT: Head atraumatic,EOMI, pupils reactive, face symmetric, moist mucous membranes CARDIOVASCULAR: Regular rate and rhythm without murmurs, rubs or gallops. RESPIRATORY: Breath sounds equal bilaterally, no wheezes rales or rhonchi. ABDOMEN: Soft, minimally tender in epigastric region no significant right upper quadrant pain negative Trent's. No guarding or rebound. EXTREMITIES: Normal range of motion, no clubbing or edema. Neurovascularly intact NEUROLOGICAL: Alert and oriented x4. SKIN: Warm, dry, no laceration, no petechiae, no rashes or lesions. Course Orders Ordered: ED Orders 08/17/23 19:00 BNP [NT-proBNP (BNP-Adult 18+)] Stat CMP [Comprehensive Metabolic Panel] Stat Complete Blood Count AUTO DIFF Stat Lipase Stat Troponin & CK Cardiac Panel Stat 08/17/23 19:02 EKG-12 Lead Stat 08/17/23 20:03 Chest [XR chest 1V] Stat 08/17/23 20:43 Urine Microscopic Stat 08/17/23 21:02 US abdomen limited Stat 08/17/23 21:18 pH VBG Stat Discontinued Medications Sodium Chloride (Normal Saline 0.9%) 1,000 mls @ 1,000 mls/hr IV BOLUS ONE Stop: 08/17/23 20:17 Last Infusion: 08/17/23 20:32 Dose: Infused Documented By: Admin: 08/17/23 19:24 Dose: 1,000 mls/hr Documented By: LORENZO Sodium Chloride (Normal Saline 0.9%) 1,000 mls @ 1,000 mls/hr IV BOLUS ONE Stop: 08/17/23 22:01 Last Infusion: 08/17/23 22:18 Dose: Infused Documented By: Admin: 08/17/23 21:10 Dose: 1,000 mls/hr Documented By: SYLVESTER Ondansetron HCl (Ondansetron 4 Mg/2 Ml Inj) 4 mg IV NOW PRN PRN Reason: Nausea And Vomiting Last Admin: 08/17/23 19:03 Dose: 4 mg Documented By: Ondansetron HCl (Ondansetron 4 Mg Odt) 4 mg SL NOW PRN PRN Reason: Nausea And Vomiting Last Admin: 08/17/23 21:08 Dose: 4 mg Documented By: SYLVESTER Ondansetron HCl (Ondansetron 4 Mg Odt Prepack) 1 bottle MISC NOW ONE Stop: 08/17/23 23:15 Last Admin: 08/17/23 23:21 Dose: 1 bottle Documented By: SYLVESTER Pantoprazole Sodium (Pantoprazole 40 Mg Vial) 40 mg IV NOW ONE Stop: 08/17/23 21:03 Last Admin: 08/17/23 21:09 Dose: 40 mg Documented By: SYLVESTER Vital Signs Vital signs: Vital Signs - 8 hr 08/17/23 18:50 08/17/23 19:15 08/17/23 19:15 Temperature 97.9 F Pulse Rate 91 H 84 Respiratory Rate 30 H 23 Blood Pressure 140/79 169/82 H Pulse Oximetry 96 96 Oxygen Delivery Method Room Air 08/17/23 19:16 08/17/23 19:30 08/17/23 19:30 Temperature Pulse Rate 84 80 Respiratory Rate 22 25 H Blood Pressure 169/82 H 153/68 H Pulse Oximetry 97 97 Oxygen Delivery Method Room Air 08/17/23 19:59 08/17/23 20:00 08/17/23 20:00 Temperature Pulse Rate 76 79 Respiratory Rate 19 20 Blood Pressure 162/67 H 162/67 H Pulse Oximetry 98 98 Oxygen Delivery Method Room Air Room Air 08/17/23 20:30 08/17/23 20:30 08/17/23 21:00 Temperature Pulse Rate 72 Respiratory Rate 21 Blood Pressure 157/68 H 162/109 H Pulse Oximetry 99 Oxygen Delivery Method Room Air 08/17/23 21:00 08/17/23 21:30 08/17/23 21:31 Temperature Pulse Rate 67 71 74 Respiratory Rate 24 24 25 H Blood Pressure Pulse Oximetry 99 94 97 Oxygen Delivery Method Room Air 08/17/23 21:31 08/17/23 22:00 08/17/23 22:00 Temperature Pulse Rate 72 Respiratory Rate 18 Blood Pressure 160/65 H 160/69 H Pulse Oximetry 95 Oxygen Delivery Method Room Air 08/17/23 22:30 08/17/23 22:30 08/17/23 23:00 Temperature Pulse Rate 84 74 Respiratory Rate 27 H 24 Blood Pressure 189/101 H Pulse Oximetry 98 96 Oxygen Delivery Method Room Air 08/17/23 23:00 08/17/23 23:27 Temperature Pulse Rate Respiratory Rate Blood Pressure 179/81 H Pulse Oximetry Oxygen Delivery Method Room Air MDM - Nausea/Vomiting/Diarrhea Lab Data 08/17/23 19:00 08/17/23 19:00 Labs: Lab Results 08/17/23 08/17/23 08/17/23 Range/Units 19:00 20:43 21:18 WBC 6.6 (4.5-11.0) X10^3/uL RBC 3.89 L (4.0-5.2) X10^6/uL Hgb 11.5 L (12.0-16.0) g/dL Hct 33.4 L (36-46) % MCV 85.9 (80-100) fL MCH 29.5 (26-34) PG MCHC 34.3 (30-36) % RDW 14.8 (11.6-14.8) % Plt Count 194 (150-400) X10^3/uL Neut % (Auto) 67.4 (50-75) % Lymph % (Auto) 24.8 L (25-40) % [place] % (Auto) 6.5 (3-14) % Eos % (Auto) 0.7 L (2-4) % Baso % (Auto) 0.6 (0-2) % Neut # (Auto) 4400 (7336-1854) /uL Lymph # (Auto) 1600 (0009-3859) /uL [place] # (Auto) 400 (0-900) /uL Eos # (Auto) 0 (0-450) /uL Baso # (Auto) 0 (0-100) /uL VBG pH 7.48 H (7.33-7.43) Sodium 132 L (137-145) mmol/L Potassium 4.6 (3.4-5.1) mmol/L Chloride 95 L (98-107) mmol/L Carbon Dioxide 20 L (22-32) mmol/L BUN 27 H (7-17) mg/dL Creatinine 1.11 H (0.52-1.04) mg/dL Estimated GFR 53 L (>60) mL/min BUN/Creatinine Ratio 24.3 H (6-22) Glucose 227 H (80-110) mg/dL Calcium 9.7 (8.4-10.2) mg/dL Total Bilirubin 1.4 H (0.2-1.3) mg/dL AST 46 H (14-36) IU/L ALT 27 (<35) IU/L Alkaline Phosphatase 65 (38-126) U/L Total Creatine Kinase 78 (30-135) U/L Troponin I 0.012 (0.01-0.034) ng/mL NT-Pro-B Natriuret Pep 2640 H (<125) pg/mL Total Protein 7.7 (6.3-8.2) g/dL Albumin 4.8 (3.5-5.0) g/dL Globulin 2.9 (1.7-4.1) g/dL Albumin/Globulin Ratio 1.7 (1.0-2.8) Lipase 34 (23-300) U/L Urine RBC 0-1/hpf (0-5/HPF) Urine WBC 0-1/hpf (0-5/HPF) Ur Squamous Epith Cells 1-5 /hpf (0-5/HPF) Ur Transition Epith Cell 0-1/hpf (0-5/HPF) Urine Bacteria Moderate (10-30) H (None) Ur Culture Indicated? Cult not indicated Vol Urine Centrifuged 10ml (spun) Urine Dip Bedside Urine Glucose 100 mg/dl Bedside Urine Bilirubin - Negative Bedside Urine Ketone ++ 40 Urine Specific [place] 1.015 Bedside Urine pH 6.0 Bedside Urine Protein - Negative Bedside Urine Urobilinogen - Negative Bedside Urine Nitrite - Negative Bedside Urine Leukocytes - Negative Esterase Imaging Data US - abdomen: Radiologist's Impression: PROCEDURE: US ABDOMEN LIMITED INDICATIONS: RUQ; ELEVATED BILIRUBIN TECHNIQUE: Real-time focused scanning was performed of the abdomen, with image documentation. COMPARISON: None. FINDINGS: Limited exam secondary to lack of good acoustic window, patient body habitus, and marked hepatic echogenicity. Liver size at the upper limits of normal at 18.3 cm in length. The parenchyma is hyperechoic and difficult to penetrate. Pathology cannot be excluded. Limited view of the gallbladder demonstrates normal wall thickness. No obvious stone. No pericholecystic fluid or sonographic Trent sign. The extrahepatic common bile duct to the extent can be seen measures about 6.8 mm. No visible free fluid. IMPRESSION: Suboptimal exam due to above factors. Hepatic steatosis or other intrinsic liver disease. Grossly normal sonographic appearance to the gallbladder. Dictated by: Oksana Lake M.D. on 08/17/2023 at 22:30 Chest x-ray: Radiologist's Impression: PROCEDURE: XR CHEST 1V INDICATIONS: short of breath TECHNIQUE: One view of the chest was acquired. COMPARISON: [facility], , XR CHEST 1V, 02/08/2021, 16:27. FINDINGS: Surgical changes and devices: None. Lungs and pleura: Lungs are clear. No pleural effusions or pneumothorax. Mediastinum: Mediastinal contours appear normal. Heart size is normal. Bones and chest wall: No suspicious bony lesions. Overlying soft tissues appear unremarkable. IMPRESSION: No acute cardiopulmonary abnormality is seen. Dictated by: Oksana Lake M.D. on 08/17/2023 at 21:15 ECG Data Interpretation: Normal sinus rhythm rate 85 WI interval 146 QRS [address] changes no T- wave inversions Q-wave noted in lead 3 and AVF similar to prior in 2021 MDM Narrative Medical decision making narrative: Patient is a 73-year-old female history of insulin-dependent diabetes presenting today with 3 days of nausea vomiting diarrhea. She generally feels weak. Sounds as though she has a chronic shortness of breath which is not significantly worse today. She denies any sort of chest pain Blood work has been reviewed: No leukocytosis anemia stable, hemoglobin 11.5 hematocrit 33.4, sodium 132, potassium 4.6, chloride 95, carbon dioxide 20, BUN 27, creatinine 1.1, glucose 227, bilirubin 1.4, AST 46, ALT 27, troponin negative, BNP 2640, lipase 34, venous pH 7.48 Imaging reviewed ultrasound and chest x-ray no abnormalities, although chest x- ray reviewed by myself does show possible mild cardiomegaly Patient has had nausea vomiting diarrhea ongoing for the last couple of days. Symptoms are most consistent with a gastroenteritis. She has no evidence of DKA. Bilirubin was slightly elevated with some minor epigastric pain ultrasound appear steady but did not show any obvious cholelithiasis or evidence of acute cholecystitis. Otherwise abdominal exam is relatively benign. I do not think she needs CT at this time. She did some mild tachypnea with sitting. Both patient and daughter report that that is completely normal for her and it remains unchanged. She does not appear clinically fluid overloaded. She has no pedal edema lung sounds are clear chest x-ray does not show any congestion however BNP is quite elevated. She tolerated 2 L of fluids without any worsening shortness of breath. She is minimally physically active. Both she and daughter report no change in regards to that. I do strongly recommend an outpatient workup in regards to probable congestive heart failure. However at this time I suspect that she has a gastroenteritis which is likely viral. We discussed supportive measures. She did still feel nauseous she has not had any further vomiting in the ED. At this time will give her prescription for Zofran with close outpatient follow-up and return as needed. Discharge Plan Departure Patient Disposition: Home Clinical Impression: Acute gastroenteritis Instructions: DI for Heart Failure, DI for Viral Gastroenteritis -- Adult Activity Restrictions/Additional Instructions: *You have been diagnosed with gastroenteritis *What to do: At this time increase fluids as tolerated recommend Pedialyte Gatorade. May increase diet and food as tolerated as well. I do strongly recommend outpatient workup for congestive heart failure. You do not seem to have any worsening signs or symptoms today. But you do likely need an outpatient echocardiogram which can be scheduled with your PCP *Continue to take medications as directed Zofran 4 mg every 8 hours if needed for nausea or vomiting *Follow up with your primary care provider in 2-3 days or call [phone] *Return to ER if you should have increasing vomiting, abdominal pain chest pain shortness of breath or any new, worsening or concerning symptoms Prescriptions: New ondansetron 4 mg tablet,disintegrating 4 mg PO Q8H PRN (Reason: nausea and vomiting) Qty: 10 0RF No Action (DME) One Touch Ultra test strips Qty: 100 5RF Dose Instruction: As directed Rx Instructions: Check blood sugar four times daily. aspirin 81 mg tablet,delayed release (DR/EC) 81 mg PO DAILY (DME) Continuous Glucose Monitor See Rx Instructions .Route .MEDSUPPLY Qty: 1 0RF Rx Instructions: As directed gabapentin 600 mg tablet 600 mg PO TID Qty: 270 2RF metoprolol tartrate 50 mg tablet 50 mg PO BID Qty: 180 3RF celecoxib 200 mg capsule 200 mg PO DAILY Qty: 90 1RF albuterol sulfate 90 mcg/actuation HFA aerosol inhaler 90 mcg INHALATION PRN PRN (Reason: Adequate Ventilation) Qty: 8.5 0RF losartan-hydrochlorothiazide 100-25 mg tablet 1 tab PO DAILY Qty: 30 2RF sertraline [Zoloft] 100 mg tablet 100 mg PO QDAY Qty: 90 0RF Humulin N NPH Insulin KwikPen 100 unit/mL (3 mL) insulin pen 25 unit SUBCUT BID Qty: 30 5RF metformin 1,000 mg tablet 1,000 mg PO BID Qty: 180 1RF simvastatin [Zocor] 40 mg tablet 40 mg PO HS Qty: 90 2RF omeprazole 20 mg capsule,delayed release(DR/EC) 20 mg PO Q DAY Qty: 90 2RF (DME) Dexcom G7 Construction Coordinator Misc See Rx Instructions .ROUTE .MEDSUPPLY Qty: 1 1RF Rx Instructions: USE TO MONITOR BLOOD SUGAR LEVELS CONTINUOUSLY. REPLACE EVERY 365 DAYS OR IF BROKEN (DME) Dexcom G7 Sensor Device See Rx Instructions .ROUTE .MEDSUPPLY Qty: 3 12RF Rx Instructions: USE TO MONITOR BLOOD GLUCOSE CONTINUOUSLY. REPLACE EVERY 10 DAYS. insulin lispro [Humalog KwikPen Insulin] 100 unit/mL insulin pen 25 unit SUBCUT BID Qty: 15 4RF ondansetron HCl 4 mg tablet 4 mg PO Q4H PRN (Reason: nausea and vomiting) Qty: 30 0RF Rx Instructions: Take 1 tab as needed every 4-8 hours acetaminophen 500 mg tablet 1,000 mg PO Q6H PRN (Reason: Pain (Scale Score 4-6)) (DME) Disabled Parking Permit See Rx Instructions .ROUTE .[facility] Qty: 1 0RF Rx Instructions: Valid for 5 years Referrals: Becky Tao DO [Primary Care Provider] - Stand Alone Forms: Patient Portal/API
--- NOTE | 2023-08-17 20:03 | DI.RAD.S_ITS ---
PROCEDURE: XR CHEST 1V INDICATIONS: short of breath TECHNIQUE: One view of the chest was acquired. COMPARISON: [facility], CR, XR CHEST 1V, 02/08/2021, 16:27. FINDINGS: Surgical changes and devices: None. Lungs and pleura: Lungs are clear. No pleural effusions or pneumothorax. Mediastinum: Mediastinal contours appear normal. Heart size is normal. Bones and chest wall: No suspicious bony lesions. Overlying soft tissues appear unremarkable. IMPRESSION: No acute cardiopulmonary abnormality is seen. Dictated by: Oksana Lake M.D. on 08/17/2023 at 21:15 Approved by: Oksana Lake M.D. on 08/17/2023 at 21:15
[2023-08-17 20:18] LABS: Creatine Kinase 78 U/L (30-135)
[2023-08-17 20:32] LABS: Troponin I 0.012 ng/mL (0.01-0.034)
[2023-08-17 20:54] LABS: Lipase 34 U/L (23-300)
--- NOTE | 2023-08-17 21:02 | DI.US.S_ITS ---
PROCEDURE: US ABDOMEN LIMITED INDICATIONS: RUQ; ELEVATED BILIRUBIN TECHNIQUE: Real-time focused scanning was performed of the abdomen, with image documentation. COMPARISON: None. FINDINGS: Limited exam secondary to lack of good acoustic window, patient body habitus, and marked hepatic echogenicity. Liver size at the upper limits of normal at 18.3 cm in length. The parenchyma is hyperechoic and difficult to penetrate. Pathology cannot be excluded. Limited view of the gallbladder demonstrates normal wall thickness. No obvious stone. No pericholecystic fluid or sonographic Trent sign. The extrahepatic common bile duct to the extent can be seen measures about 6.8 mm. No visible free fluid. IMPRESSION: Suboptimal exam due to above factors. Hepatic steatosis or other intrinsic liver disease. Grossly normal sonographic appearance to the gallbladder. Dictated by: Oksana Lake M.D. on 08/17/2023 at 22:30 Approved by: Oksana Lake M.D. on 08/17/2023 at 22:32
[2023-08-17] MEDS: ONDANSETRON 4 MG ODT SL (21:08)
[2023-08-17] MEDS: PANTOPRAZOLE 40 MG VIAL IV (21:09)
[2023-08-17 21:32] LABS: Bacteria Urine Moderate (10-30); RBC Urine 0-1/HPF (0-5/HPF); Squamous Epithelial Cell Urine 1-5 /HPF (0-5/HPF); Transitional Epi Cells Urine 0-1/HPF (0-5/HPF); Urine Volume 10mL (spun); WBC Urine 0-1/HPF (0-5/HPF)
[2023-08-17 21:33] LABS: Culture Indicated Urine Cult Not Indicated
[2023-08-17 21:35] LABS: NT-proBNP (BNP-Adult 18+) 2640 pg/mL (<125)
[2023-08-17 21:44] LABS: pH VBG 7.48 (7.33-7.43)
[2023-08-17] MEDS: ONDANSETRON 4 MG ODT PREPACK 1 BOTTLE MISC (23:21)
== END 2023-08-17 23:30 | disposition home or self-care (01) ==
PROVIDERS: Emergency Provider Emergency Medicine; Family Provider Surgery; PCP Family Medicine
DX: K52.9 Noninfective gastroenteritis and colitis, unspecified (principal); R06.02 Shortness of breath; R79.89 Other specified abnormal findings of blood chemistry
CPT/HCPCS: 36415; 71045; 76705; 80053; 81003; 81015; 82550; 83690; 83880; 83986; 84484; 85025; 93005; 93010; 96361; 96374; 96375; 99284; C9113; J2405

== ENCOUNTER → 2023-09-03 15:35 | Outpatient (CLI) | payer MEDICARE, SELFPAY ==
[2021-10-02 08:58] VITALS: BMI 46.1
--- NOTE | 2023-09-03 | DI.MG.S_ITS ---
UNILATERAL LEFT DIGITAL SCREENING MAMMOGRAM 3D/2D WITH CAD POST MASTECTOMY: 09/03/2023 CLINICAL: Routine screening. Personal history of right breast cancer. Comparison is made to exams dated: 04/09/2017 mammogram - outside location, 12/31/2020 mammogram, and 01/11/2021 mammogram - [facility]. The left breast is almost entirely fatty (category a/<25% glandular tissue). Current study was also evaluated with a Computer Aided Detection (CAD) system. No significant masses, calcifications, or other findings are seen in the breast. There has been no significant interval change. IMPRESSION: NEGATIVE There is no mammographic evidence of malignancy. A 1 year screening mammogram is recommended. This exam was interpreted at Station ID: [id number]. NOTE: For mammograms, a report in lay terms will be sent to the patient. Approximately 15% of breast malignancies will not be visualized mammographically. In the management of a palpable breast mass, a negative mammogram must not discourage biopsy of a clinically suspicious lesion. Electronically Signed By: Fuentes flores/kiana:09/04/2023 08:19:08 letter sent: Normal Exam ACR BI-RADS Category 1: Negative [id number]
== END ==
PROVIDERS: Family Provider Surgery; PCP Family Medicine; Referring Provider Family Medicine; Visit Provider Family Medicine
DX: Z12.31 Encounter for screening mammogram for malignant neoplasm of breast (principal); Z85.3 Personal history of malignant neoplasm of breast
CPT/HCPCS: 77063; 77067

== ENCOUNTER → 2023-09-23 09:10 | Outpatient (CLI) | payer MEDICARE, SELFPAY ==
[2021-10-02 08:58] VITALS: BMI 46.1
--- NOTE | 2023-09-23 09:11 | DI.ECHO.S_ITS ---
[facility] +---------+ : : [address] [place] : : : : [id number] : : : : Phone: [phone] Echocardiogram Report + + :Name: MARGRET ARMANDO Study Date: 09/23/2023 Height: 62 in : :[facility] ReadingLocation: Weight: 272 lb : : Gender: Female BSA: 2.2 m2 : :: 1950 Age: 73 yrs BP: 104/58 mmHg: :Reason For Study: Congestive Heart Failure : : Performed By: Jaycee Waldrop : :Referring: GINGER BRANDT : + + Interpretation Summary Normal sinus rhythm. Normal LV size and borderline increased wall thickness. Normal wall motion and LV systolic function. Ejection fraction is 60-65%. Stage I diastolic dysfunction. Mild left atrial enlargement; otherwise normal chamber sizes. No significant valvular abnormalities. Compared to prior study February 07, 2021 no changes have occurred. Procedure: A two-dimensional transthoracic echocardiogram with color flow and Doppler was performed. The study quality was technically adequate. There is no prior echocardiogram noted for this patient. The heart rate ranged between 67-68 bpm during the study. Left Ventricle: The left ventricle is normal in size. There is borderline concentric left ventricular hypertrophy. The ejection fraction is estimated to be 60-65%. Diastolic parameters suggest a relaxation abnormality of the left ventricle, consistent with probable normal filling pressures. Right Ventricle: The right ventricle grossly appears normal in size with probable normal systolic function. Atria: The left atrium is mildly dilated. Right atrial size is normal. The interatrial septum grossly appears intact with no obvious evidence for an atrial septal defect. Mitral Valve: The mitral valve is normal in structure and function. There is no mitral regurgitation noted. Aortic Valve: The aortic valve opens well. No aortic regurgitation is present. Tricuspid Valve: The tricuspid valve is normal in structure and function. There is a trace or physiologic amount of tricuspid regurgitation. Pulmonic Valve: The pulmonic valve is not well seen, but is grossly normal. There is a trace or physiologic amount of pulmonic regurgitation. Great Vessels: The aortic root is normal size. The ascending aorta is normal in size. The aortic arch is normal in size. The IVC is of normal diameter and collapses greater than 50% with a sniff. This suggests a low right atrial pressure of 3 mm Hg. Pericardium/ Pleura Fairly prominent pericardial fat pad. There is no pleural effusion. MMode/2D Measurements & Calculations LVIDd: 5.5 cm LVOT diam: 1.9 cm LVIDs: 3.4 cm Ao root diam: 2.7 cm FS: 38.2 % asc Aorta Diam: 3.0 cm EPSS: 0.59 cm Ao Arch Diam (Prox Trans): 2.8 cm IVSd: 1.1 cm LVPWd: 1.00 cm LV lala. diameter/BSA (cm/m^2): 2.5 LV sys. diameter/BSA (cm/m^2): 1.6 LA A2 area: 20.3 cm2 RA long axis: 4.2 cm LA A4 area: 27.5 cm2 RA area: 11.9 cm2 LA length (vol): 6.2 cm RA vol: 29.0 ml LA vol: 76.5 ml RA : 13.3 ml/m2 LA vol index: 35.1 ml/m2 IVC diam: 1.6 cm RVD1 (basal): 2.4 cm TAPSE: 1.8 cm Doppler Measurements & Calculations Ao V2 max: 205.7 cm/sec LVOT Max Dre: 99.8 cm/sec Ao V2 mean: 140.0 cm/sec LV V1 max P.0 mmHg Ao max P.9 mmHg LV V1 VTI: 22.3 cm Ao mean P.9 mmHg RENETTA(I,D): 1.4 cm2 Ao V2 VTI: 46.0 cm RENETTA(V,D): 1.4 cm2 sev ratio: 0.49 RENETTA indexed to BSA (cm^2/m^2): 0.63 MV E max dre: 86.8 cm/sec TR max dre: 238.3 cm/sec MV A max dre: 108.0 cm/sec TR max P.7 mmHg MV E/A: 0.80 PA V2 max: 107.1 cm/sec Med Peak E' Dre: 5.4 cm/sec PA V2 mean: 75.3 cm/sec E/E' med: 16.1 PA mean P.6 mmHg Lat Peak E' Dre: 4.1 cm/sec PA pr(Accel): 17.3 mmHg E/E' lat: 20.9 E/e' average: 18.5 MV dec time: 0.27 sec SV(LVOT): 63.4 ml Electronically signed by: Tara Zarate M.D. on Reading Physician:09/23/2023 04:58 PM
== END ==
PROVIDERS: Family Provider Surgery; PCP Family Medicine; Referring Provider Family Medicine; Visit Provider Family Medicine
DX: I50.9 Heart failure, unspecified (principal); E11.9 Type 2 diabetes mellitus without complications; Z79.4 Long term (current) use of insulin; Z79.84 Long term (current) use of oral hypoglycemic drugs; Z71.3 Dietary counseling and surveillance
CPT/HCPCS: 93306; 95249

== ENCOUNTER → 2023-09-23 12:38 | Outpatient (CLI) | payer MEDICARE, SELFPAY ==
[2021-10-02 08:58] VITALS: BMI 46.1
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
== END ==
PROVIDERS: Family Provider Surgery; PCP Family Medicine; Referring Provider Family Medicine; Visit Provider Family Medicine
DX: E11.9 Type 2 diabetes mellitus without complications (principal); Z79.4 Long term (current) use of insulin; Z79.84 Long term (current) use of oral hypoglycemic drugs; Z71.3 Dietary counseling and surveillance
CPT/HCPCS: 95249

== ENCOUNTER → 2023-10-09 12:51 | Outpatient (CLI) | payer MEDICARE, SELFPAY ==
[2021-10-02 08:58] VITALS: BMI 46.1
--- NOTE | 2023-10-09 15:57 | DIAB.MNTFU ---
Follow-up Diabetes Medical Nutrition Therapy Assessment Name: Yary Huggins (Maria Del Rosario) Date: 10/09/23 Time: 115-245p Dx: Type II Diabetes Maria Del Rosario presents for Dm follow-up. Has been wearing personal CGM without issue. Did lose one sensor, but has enough to get through until refill. Based on assessment seems to have a complicated relationship with food and weight. Has guilt with eating. Endorses emotional eating. Reports h/o hiding foods in bedroom, and states she still hides foods from her daughter. Diet recall indicates higher CHO portions with evening snacks and breakfast, consistent with hyperglycemia in CGM report. Limited veggies during the day. Daughter cooks pre boxed subscription meals 3x per week. Eating out 1x per week. Reports h/o severe low symptoms. Eats before bed and/or skips mealtime insulin at dinner to prevent lows. Today in clinic she experienced low symptoms at 95mg/dl, ie sweating, foggy. Started Jardiance. Has questions about SE and action. Also reports forgetting to take it at times. Diet Recall: 945a coffee and creamer 1130a: breakfast biscuit sausage bowl with fruit 2p: brat on sourdough +/- 12 crackers or lemon bar 6p: 2 small tacos with veggies and beans OR Ramen OR pizza 2-3 slices 10-11p: cheese or bologne with bread OR sf jello OR pudding OR lemon bar OR 3oz chips Anthropometrics: Ht: 62 Wt: 266# 08/2023 PCP office Physical Activity: No program Self-Monitoring Blood Glucose: Wearing Dexcom G7 Time in range 14 days 7% very high 34% high 58% in target <1% low avg 175mg/dl std dev 48 GMI 7.5% Diabetes Medications: NPH 25u BID Lispro 25u BID (takes 1x per day) Jardiance 10mg Metformin 1000mg BID Pertinent Labs: HgA1c: 7.7% 08/2022 8.7% 06/2023 Past Medical History: (Last Updated 08/26/23 @ 14:39 by Becky Tao DO) Acute gastroenteritis Anemia Ankle pain Asthma Astigmatism, bilateral Bilateral cataracts Bronchitis Cataracts, bilateral Chicken pox Chronic back pain CKD (chronic kidney disease) Colon polyps (2012) Constipation Depression Diabetes mellitus DVT (deep venous thrombosis) Easy bruisability Fatigue Foot pain GERD (gastroesophageal reflux disease) Hearing loss (~2016) Hearing aids History of chemotherapy History of deep venous thrombosis (05/21/15) Hyperlipidemia Hypermetropia, bilateral Hypertension Migraines Mumps Obesity Obstructive sleep apnea syndrome (05/21/15) Osteoarthritis Otitis externa Pernicious anemia Post traumatic stress disorder (PTSD) Presbyopia Recurrent sinusitis Right knee pain RLS (restless legs syndrome) Sleep apnea Uses CPAP Synovial cyst of popliteal space [Mancera], left knee Vertigo Vision disorder Glasses Nutrition Rx: Carbohydrates: Meal: 30-45g Snack:15-30g Nutrition Diagnosis: Excessive CHO intake r/t nutrition knowledge deficit aeb diet recall Inconsistent protein intake r/t nutrition knowledge deficit aeb diet recall Intervention: This participant was very receptive. Provided appropriate educational handouts. Discussed the following topics: Blood sugar review and trends. Impact of food intake and insulin on results. Plate Method, impact of macronutrients on blood sugar, meal timing, carbohydrate counting, pairing macronutrients and spreading out carbohydrates for better blood glucose management Meal planning and carb counting review and brainstormed a meal plan based on preferences Medication management: Jardiance action/Se, insulin regimen RUle of 15 review Importance of food relationship Created SMART goals for patient self-care and success. Goals: Wear CGM x 10 days and then replace sensor- met If reading is not matching how you feel, finger stick- cont Treat lows with Rule of 15- cont Add Jardiance to pill box- new Measure creamer- new Buy almonds- new Add protein to snacks- new Follow-up: OLENA FERNÁNDEZ follow-up in 2-3 weeks Donna White RDN, JOLENE Certified Diabetes Care and Rn Pediatric Icu P: [phone] Thank you for this referral
== END ==
PROVIDERS: Family Provider Surgery; PCP Family Medicine
DX: E11.9 Type 2 diabetes mellitus without complications (principal); Z79.84 Long term (current) use of oral hypoglycemic drugs; Z79.4 Long term (current) use of insulin; Z71.3 Dietary counseling and surveillance
CPT/HCPCS: 97803

== ENCOUNTER → 2023-10-30 12:53 | Outpatient (CLI) | payer MEDICARE, SELFPAY ==
[2021-10-02 08:58] VITALS: BMI 46.1
--- NOTE | 2023-11-11 11:31 | DIAB.FU ---
Follow-up Diabetes Education Assessment Name: Yary Huggins (Maria Del Rosario) Date: 10/30/23 Time: 110-215p Dx: Type II Diabetes Maria Del Rosario presents for Dm follow-up. Is now taking her Jardiance, which is an improvement. Also, taking 20u Lispro with most meals (which is also an improvement), and she is having some lows after lower carb meals. Needs reduction in insulin at these meals. Sometimes forgets insulin at meals or dose not take it at all if premeal number is low. This will result in elevation after meal, since not insulin was taken to cover carb intake. States she has been measuring her creamers, increased almonds for snacks. Purchased other higher protein snacks. Some elevations from high carb cereal. Wants to buy sf jello. Dessert sometimes very close to dinner, causing elevations. Sometimes stacking insulin at coffee and breakfast 20u at each and then low after. Needs more education low hypo tx. Self-Monitoring Blood Glucose: Time in range improving with less time in very high, >250mg/dl. Today: Time in range 14 days: 5% very high 36% high 58% in range <1% low 0% very low av mg/dl std dev: 46mg/dl GMI: 7.4% variation: 27% Last Visit: Time in range 14 days 7% very high 34% high 58% in target <1% low avg 175mg/dl std dev 48 GMI 7.5% Diabetes Medications: NPH 25u BID Lispro 25u BID Jardiance 10mg Metformin 1000mg BID Pertinent Labs: HgA1c: 7.7% 08/2022 8.7% 06/2023 Past Medical History: (Last Updated 08/26/23 @ 14:39 by Becky Tao DO) Acute gastroenteritis Anemia Ankle pain Asthma Astigmatism, bilateral Bilateral cataracts Bronchitis Cataracts, bilateral Chicken pox Chronic back pain CKD (chronic kidney disease) Colon polyps (2012) Constipation Depression Diabetes mellitus DVT (deep venous thrombosis) Easy bruisability Fatigue Foot pain GERD (gastroesophageal reflux disease) Hearing loss (~2015) Hearing aids History of chemotherapy History of deep venous thrombosis (05/21/15) Hyperlipidemia Hypermetropia, bilateral Hypertension Migraines Mumps Obesity Obstructive sleep apnea syndrome (05/21/15) Osteoarthritis Otitis externa Pernicious anemia Post traumatic stress disorder (PTSD) Presbyopia Recurrent sinusitis Right knee pain RLS (restless legs syndrome) Sleep apnea Uses CPAP Synovial cyst of popliteal space [Mancera], left knee Vertigo Vision disorder Glasses Intervention: This participant was very receptive. Provided appropriate educational handouts. Discussed the following topics: Recent blood sugar results and trends Medication management: insulin titration and changes Review of general nutrition recommendations and current intake Stacking insulin and hypoglycemia result and tx Created SMART goals for patient self-care and success. Goals: Add Jardiance to pill box- met Measure creamer- met Buy almonds- met Add protein to snacks- met smoke control supervisor sf jello- new try lower CHO cereal- new Move dessert to 930p- new For lower CHO meal, reduce lispro to 8-10u- new Try 10u with coffee- new Carry glucose tabs with you- new Follow-up: OLENA FERNÁNDEZ follow-up in 2-3 weeks Donna White RDN, JOLENE Certified Diabetes Care and Junior Qa Analyst P: [phone] Thank you for this referral
== END ==
PROVIDERS: Family Provider Surgery; PCP Family Medicine; Referring Provider Family Medicine
DX: E11.9 Type 2 diabetes mellitus without complications (principal); Z79.84 Long term (current) use of oral hypoglycemic drugs; Z79.4 Long term (current) use of insulin; Z71.3 Dietary counseling and surveillance
CPT/HCPCS: G0108

== ENCOUNTER → 2023-11-20 15:49 | Outpatient (CLI) | payer MEDICARE, SELFPAY ==
[2021-10-02 08:58] VITALS: BMI 46.1
--- NOTE | 2023-12-15 10:49 | DIAB.FU ---
Follow-up Diabetes Education Assessment Name: Yary Huggins (Maria Del Rosario) Date: 11/20/23 Time: 4-450p Dx: Type II Diabetes Maria Del Rosario presents for DM follow-up. Tearful today missing her late mother. Feels her mother would be happy she is here with RD. Mother passed 1999. Purchased lumpia recently and ate 10 (about 5g CHO ea) and BG was 190mg/dl. Has not picked up glucose tabs for lows. Taking 15u with coffee and then 20u at breakfast of mealtime insulin Tried special k protein, did NOT like it. Looking for some recipe ideas. Needs review of CHO label reading. overall, trying to watch portions. Picked up sf jello. Moved dessert away from dinner. Self-Monitoring Blood Glucose: Some improvement with time in range. Less very high >250mg/dl. Some increase in lows. Variation also improved. CGM recently fell out. Has not called Dexcom. Plans to belt picker new rx. Still having elevations postprandially. Today: Time in range 14 days: 1% very high 35% high 63% in range <4% low 0% very low av mg/dl std dev: 43mg/dl GMI: 7.2% variation: 25.9% Last Visit: 5% very high 36% high 58% in range <1% low 0% very low av mg/dl std dev: 46mg/dl GMI: 7.4% variation: 27% Diabetes Medications: NPH 25u BID Lispro 10-25u TID Jardiance 10mg Metformin 1000mg BID Pertinent Labs: HgA1c: 7.7% 08/2022 8.7% 06/2023 Past Medical History: (Last Updated 08/26/23 @ 14:39 by Becky Tao DO) Acute gastroenteritis Anemia Ankle pain Asthma Astigmatism, bilateral Bilateral cataracts Bronchitis Cataracts, bilateral Chicken pox Chronic back pain CKD (chronic kidney disease) Colon polyps (2012) Constipation Depression Diabetes mellitus DVT (deep venous thrombosis) Easy bruisability Fatigue Foot pain GERD (gastroesophageal reflux disease) Hearing loss (~2015) Hearing aids History of chemotherapy History of deep venous thrombosis (05/21/15) Hyperlipidemia Hypermetropia, bilateral Hypertension Migraines Mumps Obesity Obstructive sleep apnea syndrome (05/21/15) Osteoarthritis Otitis externa Pernicious anemia Post traumatic stress disorder (PTSD) Presbyopia Recurrent sinusitis Right knee pain RLS (restless legs syndrome) Sleep apnea Uses CPAP Synovial cyst of popliteal space [Mancera], left knee Vertigo Vision disorder Glasses Intervention: This participant was very receptive. Provided appropriate educational handouts. Discussed the following topics: Recent blood sugar results and trends Medication management Review of general nutrition recommendations and current intake Hypoglycemia tx and s/s Created SMART goals for patient self-care and success. Goals: traffic signal supervisor maintenance sf jello- met try lower CHO cereal- met Move dessert to 930p- met For lower CHO meal, reduce lispro to 8-10u- in progress Try 10u with coffee- in progress Carry glucose tabs with you- in progress Order glucose tabs online- new Try 25u prandial insulin for higher CHO meals- new Make PCP appt- new Adjust am prandial insulin as discussed based on BG after coffee- new Follow-up: OLENA FERNÁNDEZ follow-up in 4 weeks Donna White RDN, JOLENE Certified Diabetes Care and Ferryboat Operator Cable P: [phone] Thank you for this referral
== END ==
PROVIDERS: Family Provider Surgery; PCP Family Medicine; Referring Provider Family Medicine
DX: E11.42 Type 2 diabetes mellitus with diabetic polyneuropathy (principal); Z71.3 Dietary counseling and surveillance
CPT/HCPCS: G0108

== ENCOUNTER → 2024-01-01 12:52 | Outpatient (CLI) | payer MEDICARE, SELFPAY ==
[2021-10-02 08:58] VITALS: BMI 46.1
--- NOTE | 2024-01-21 13:33 | DIAB.FU ---
Follow-up Diabetes Education Assessment Name: Yary Huggins (Maria Del Rosario) Date: 01/01/24 Time: 105-150p Dx: Type II Diabetes Maria Del Rosario presents for DM follow-up. Reports reduced urination frequ since d/c of Jardiance. Also discussed urinary incontinence with PCP. Treating low BG appropriately. Pairing CHO and proteins. Adding more pro foods in general. Up to date on dental. Had eye appt 6 months ago and cataract sx. Tries to care for her feet, wears slippers, no bare feet. Having some lows after coffee with 20u insuin coverage. Self-Monitoring Blood Glucose: TIR indicates similar results as last visit with a bit higher time over 250mg/dl, however less lows than last visit. Today: Time in range 14 days: 3% very high 35% high 61% in range <1% low 0% very low av mg/dl std dev: 44mg/dl GMI: 7.3% variation: 26% Last Visit: 1% very high 35% high 63% in range <4% low 0% very low av mg/dl std dev: 43mg/dl GMI: 7.2% variation: 25.9% Diabetes Medications: NPH 25u BID Lispro 10-25u TID Jardiance 10mg Metformin 1000mg BID Pertinent Labs: HgA1c: 7.7% 08/2022 8.7% 06/2023 Past Medical History: (Last Updated 08/26/23 @ 14:39 by Becky Tao DO) Acute gastroenteritis Anemia Ankle pain Asthma Astigmatism, bilateral Bilateral cataracts Bronchitis Cataracts, bilateral Chicken pox Chronic back pain CKD (chronic kidney disease) Colon polyps (2012) Constipation Depression Diabetes mellitus DVT (deep venous thrombosis) Easy bruisability Fatigue Foot pain GERD (gastroesophageal reflux disease) Hearing loss (~2015) Hearing aids History of chemotherapy History of deep venous thrombosis (05/21/15) Hyperlipidemia Hypermetropia, bilateral Hypertension Migraines Mumps Obesity Obstructive sleep apnea syndrome (05/21/15) Osteoarthritis Otitis externa Pernicious anemia Post traumatic stress disorder (PTSD) Presbyopia Recurrent sinusitis Right knee pain RLS (restless legs syndrome) Sleep apnea Uses CPAP Synovial cyst of popliteal space [Mancera], left knee Vertigo Vision disorder Glasses Intervention: This participant was very receptive. Provided appropriate educational handouts. Discussed the following topics: Recent blood sugar results and trends Medication management: reduction in insulin coverage for coffee given lows Review of general nutrition recommendations and current intake Review of risk reduction recs for Dm complications Created SMART goals for patient self-care and success. Goals: Order glucose tabs online- met Try 25u prandial insulin for higher CHO meals- met Make PCP appt- met Adjust am prandial insulin as discussed based on BG after coffee-met Reduce to 15-18u pre coffee- new Continue pairing - new Follow-up: OLENA FERNÁNDEZ follow-up in 4-6 weeks Donna White RDN, JOLENE Certified Diabetes Care and Farmer General P: [phone] Thank you for this referral
== END ==
PROVIDERS: Family Provider Surgery; PCP Family Medicine; Referring Provider Family Medicine
DX: E11.9 Type 2 diabetes mellitus without complications (principal); Z71.3 Dietary counseling and surveillance; Z79.84 Long term (current) use of oral hypoglycemic drugs; Z79.85 Long-term (current) use of injectable non-insulin antidiabetic drugs; Z79.4 Long term (current) use of insulin
CPT/HCPCS: G0108

== ENCOUNTER → 2024-02-10 12:50 | Outpatient (CLI) | payer MEDICARE, SELFPAY ==
[2021-10-02 08:58] VITALS: BMI 46.1
--- NOTE | 2024-03-03 12:51 | DIAB.MNTFU ---
Follow-up Diabetes Medical Nutrition Therapy Assessment Name: Yary Huggins (Maria Del Rosario) Date: 02/10/24 Time: 105-135p Dx: Type II Diabetes Maria Del Rosario presents for DM follow-up. Taking 5mg Mounjaro. Continues to adjust insulin accordingly with changes in GLP1 dose. Reduced NPH and sometimes skipping Lispro due to BG results. Recent HgA1c down to 6.4% indicating well managed BG. Has questions about when to take NPH and action review. Notices reduced appetite with GLP1. Reports less nighttime snacking, which has been a challenge in the past. Diet recall: 1130a: boiled egg, lithuanian muffin OR eggs and toast, coffee 1-2p: hot dog OR tuna/egg salad sandwich 6-630p: pork, green beans, 1 potato OR plain chicken wings, 1 piece cheese bread sn: nothing or oreo ice cream sandwich OR 1 drumstick ice cream water: 24oz x 2-3 Anthropometrics: Ht: 62 Wt: 266# 01/2024 266# 08/2023 Self-Monitoring Blood Glucose: Improved TIR, less lows and less BG over 250mg/dl. Today: Time in range 14 days: 1% very high 28% high 70% in range 1% low 0% very low av mg/dl std dev: 40mg/dl GMI: 7.1% variation: 25.3% Last Visit: 3% very high 35% high 61% in range <1% low 0% very low av mg/dl std dev: 44mg/dl GMI: 7.3% variation: 26% Diabetes Medications: NPH 18u BID Lispro 8-20u 1x per day Jardiance 10mg Metformin 1000mg BID Tirzepatide 5mg per week Pertinent Labs: HgA1c: 7.7% 08/2022 8.7% 06/2023 6.4% 12/2023 Past Medical History: (Last Updated 08/26/23 @ 14:39 by Becky Tao DO) Acute gastroenteritis Anemia Ankle pain Asthma Astigmatism, bilateral Bilateral cataracts Bronchitis Cataracts, bilateral Chicken pox Chronic back pain CKD (chronic kidney disease) Colon polyps (2012) Constipation Depression Diabetes mellitus DVT (deep venous thrombosis) Easy bruisability Fatigue Foot pain GERD (gastroesophageal reflux disease) Hearing loss (~2015) Hearing aids History of chemotherapy History of deep venous thrombosis (05/21/15) Hyperlipidemia Hypermetropia, bilateral Hypertension Migraines Mumps Obesity Obstructive sleep apnea syndrome (05/21/15) Osteoarthritis Otitis externa Pernicious anemia Post traumatic stress disorder (PTSD) Presbyopia Recurrent sinusitis Right knee pain RLS (restless legs syndrome) Sleep apnea Uses CPAP Synovial cyst of popliteal space [Mancera], left knee Vertigo Vision disorder Glasses Nutrition Rx: Carbohydrates: Meal: 30-45g Snack:15-30g Nutrition Diagnosis: Excessive CHO intake r/t nutrition knowledge deficit aeb diet recall - improved Inconsistent protein intake r/t nutrition knowledge deficit aeb diet recall- improved Intervention: This participant was very receptive. Provided appropriate educational handouts. Discussed the following topics: Recent blood sugar results and trends Medication management Insulin action and timing Meal timing as appetite changes Importance of adequate intake while balancing BG and CHO intake Created SMART goals for patient self-care and success. Goals: Reduce to 15-18u pre coffee- met Continue pairing - met Take NPH 12 hours apart- new Try to eat TID, even with suppressed appetite- new If FBG >150mg, adjust HS NPH- new Follow-up: OLENA FERNÁNDEZ follow-up prn. Encouraged her to reach out with any questions or follow-up needs. Donna White RDN, JOLENE Certified Diabetes Care and Software Qa Manager P: [phone] Thank you for this referral
== END ==
LOC: DIET 12:51
PROVIDERS: Family Provider Surgery; PCP Family Medicine; Referring Provider Family Medicine
DX: E11.9 Type 2 diabetes mellitus without complications (principal); Z71.3 Dietary counseling and surveillance
CPT/HCPCS: 97803

== ENCOUNTER → 2024-09-23 14:58 | Outpatient (CLI) | payer MEDICARE, SELFPAY ==
[2021-10-02 08:58] VITALS: BMI 46.1
--- NOTE | 2024-09-23 15:00 | DI.MG.S_ITS ---
MM screening mammo unilat LT: 09/23/2024. BI-RADS: 1 CLINICAL: 74-year old female for left screening mammogram. No Tyrer-Cuzick risk score calculation due to the patient's personal history of breast cancer. Patient reports a history of right breast carcinoma diagnosed at age 70. Status-post right mastectomy. Patient has undergone neoadjuvant chemotherapy. No first-degree family history of breast cancer. Patient was diagnosed within the last 5 years. The patient had a prior right breast biopsy. PRIOR EXAMS 09/03/2023, 07/19/2021, 02/22/2021, 02/14/2021, 01/11/2021, 12/31/2020. MAMMOGRAPHY TECHNIQUE: 2D and 3D (tomosynthesis) digital mammographic views obtained, with additional images as needed for full coverage. Current study was also evaluated with a Computer Aided Detection (CAD) system. DENSITY Left: A. The breasts are almost entirely fatty. MAMMOGRAPHY FINDINGS Left: No suspicious mass, asymmetry, microcalcification, or other abnormality seen. IMPRESSION: Left * No evidence of malignancy. RECOMMENDATIONS Left * Annual screening mammography. OVERALL ASSESSMENT CATEGORY BI-RADS-1: Negative. The [employer] recommends annual screening mammography beginning at age 40 for women with average risk of breast cancer. ELECTRONICALLY SIGNED: Fuentes Armstrong M.D. on 09/23/2024 at 05:19:03 PM PT Interpreting Station ID: [id number]
== END ==
LOC: MAMMO 15:00
PROVIDERS: PCP Family Medicine; Referring Provider Family Medicine; Visit Provider Family Medicine
DX: Z12.31 Encounter for screening mammogram for malignant neoplasm of breast (principal); R92.312 Mammographic fatty tissue density, left breast; Z90.11 Acquired absence of right breast and nipple; Z85.3 Personal history of malignant neoplasm of breast
CPT/HCPCS: 77063; 77067

== ENCOUNTER → 2024-11-16 08:51 | Outpatient (CLI) | payer MEDICARE, SELFPAY ==
[2021-10-02 08:58] VITALS: BMI 46.1
[2024-11-16 10:23] LABS: BUN Creatinine Ratio 20.8 (6-22); Blood Urea Nitrogen 27 mg/dL (7-17); Calcium 9.4 mg/dL (8.4-10.2); Carbon Dioxide 25 mmol/L (22-32); Chloride 96 mmol/L (98-107); Estimated Glomerular Filt Rate 44 mL/min (>60); Glucose 238 mg/dL (70-99); HEMOLYSIS < 15 (0-50); Potassium 4.3 mmol/L (3.4-5.1); Sodium 136 mmol/L (137-145)
== END ==
PROVIDERS: PCP Family Medicine; Referring Provider Family Medicine; Visit Provider Family Medicine
DX: I50.30 Unspecified diastolic (congestive) heart failure (principal); E03.2 Hypothyroidism due to medicaments and other exogenous substances; E11.69 Type 2 diabetes mellitus with other specified complication; E78.5 Hyperlipidemia, unspecified; E11.42 Type 2 diabetes mellitus with diabetic polyneuropathy; I11.0 Hypertensive heart disease with heart failure
CPT/HCPCS: 36415; 80048

== ENCOUNTER → 2024-11-16 12:10 | Outpatient (CLI) | payer MEDICARE, SELFPAY ==
[2021-10-02 08:58] VITALS: BMI 46.1
--- NOTE | 2024-11-16 12:12 | DI.RAD.S_ITS ---
PROCEDURE: XR LUMBAR SPINE 2-3V INDICATIONS: chronic back pain TECHNIQUE: 3 views of the lumbar spine were acquired. COMPARISON: None. FINDINGS: Lumbar spine curvature and alignment: Grade 1 L4-5 spondylolisthesis features 1 cm of L4 anterior subluxation. This appears to be due to degenerative facet disease. Very slight leftward curve noted. Bones: There are no osseous abnormalities. Disc spaces: Mild L2-3 L4-5 and L5-S1 degenerative disc disease noted. There is moderate L3-4 L4-5 and L5-S1 degenerative facet disease Soft tissues: No soft tissue swelling, calcification or mass. IMPRESSION: Grade 1 L4-5 spondylolisthesis due to degenerate facet disease. Multilevel degeneration Dictated by: Luis Jones M.D. on 11/17/2024 at 6:30 Approved by: Luis Jones M.D. on 11/17/2024 at 6:31
== END ==
LOC: RAD 12:11
PROVIDERS: PCP Family Medicine; Referring Provider Family Medicine; Visit Provider Family Medicine
DX: M43.16 Spondylolisthesis, lumbar region (principal); M51.16 Intervertebral disc disorders with radiculopathy, lumbar region; M51.17 Intervertebral disc disorders with radiculopathy, lumbosacral region; M47.26 Other spondylosis with radiculopathy, lumbar region; M47.27 Other spondylosis with radiculopathy, lumbosacral region; M54.9 Dorsalgia, unspecified; G89.29 Other chronic pain; E03.2 Hypothyroidism due to medicaments and other exogenous substances; E11.69 Type 2 diabetes mellitus with other specified complication; E78.5 Hyperlipidemia, unspecified; E11.42 Type 2 diabetes mellitus with diabetic polyneuropathy; I11.0 Hypertensive heart disease with heart failure; I50.30 Unspecified diastolic (congestive) heart failure
CPT/HCPCS: 36415; 72100; 80048

== ENCOUNTER → 2025-04-14 15:02 | Outpatient (CLI) | payer MEDICARE, SELFPAY ==
[2021-10-02 08:58] VITALS: BMI 46.1
--- NOTE | 2025-04-14 15:06 | DI.MRI.S_ITS ---
PROCEDURE: MR LUMBAR SPINE WO CON INDICATIONS: low back and bilat lower limb pain TECHNIQUE: Noncontrast sagittal T1 spin echo and T2 fast echo, sagittal STIR, and T2 fast spin echo through the lumbar spine. In cases with scoliosis, additional coronal T2 fast spin echo may be performed. COMPARISON: Merged With [facility], MR, L-SPINE WITHOUT CONTRAST, 05/09/2016, 16:54. FINDINGS: Alignment and Curvature: There is normal bony alignment. Bone Marrow: Marrow is of normal overall signal. No acute vertebral body compression fractures. Spinal Cord: Conus medullaris terminates at the L1 level. Visualized cord demonstrates normal signal and size. Paraspinous Soft Tissues: Incidental right renal 2.5 cm cortical cyst. No hydronephrosis. T12-L1: Normal appearance. L1-L2: Normal appearance. L2-L3: Disc bulge and arthropathy. Moderate right foraminal stenosis. No central or left foraminal stenosis L3-L4: Disc bulge and arthropathy. Mild central stenosis. No foraminal stenosis L4-L5: Disc bulge and arthropathy. Ligamentum flavum laxity. Severe central stenosis. Moderate right and mild left foraminal stenosis. L5-S1: Disc bulge and arthropathy. No central stenosis. Moderate left and no right foraminal stenosis IMPRESSION: Multilevel degenerative disc disease and arthropathy results in varying degrees of central and foraminal stenosis including severe central stenosis at L4-5 Approved by: Jamaal Dunn M.D. on 04/17/2025 at 17:22
--- NOTE | 2025-04-14 15:06 | DI.RAD.S_ITS ---
PROCEDURE: XR LUMBAR SPINE 2-3V INDICATIONS: listhesis TECHNIQUE: 2 views of the lumbar spine were acquired. COMPARISON: [facility], CR, XR LUMBAR SPINE 2-3V, 11/16/2024, 12:21. FINDINGS: Bones: 5 [id number] vertebrae are present. There is unchanged grade 1 spondylolisthesis of L4 on L5. Disc and foraminal narrowing are most prominent at L5-S1. No vertebral body compression fractures. No suspicious bony lesions. Soft tissues: Overlying bowel gas pattern is normal. No suspicious soft tissue calcifications. IMPRESSION: Stable appearance of L4 on L5 spondylolisthesis, grade 1. Dictated by: Ophelia Rai M.D. on 04/15/2025 at 17:27 Approved by: Ophelia Rai M.D. on 04/15/2025 at 17:28
== END ==
PROVIDERS: PCP Family Medicine; Referring Provider Physical Medicine & Rehabilitation; Visit Provider Physical Medicine & Rehabilitation
DX: M48.061 Spinal stenosis, lumbar region without neurogenic claudication (principal); M54.50 Low back pain, unspecified; M43.16 Spondylolisthesis, lumbar region
CPT/HCPCS: 72100; 72148

== ENCOUNTER 2025-05-03 09:15 | Outpatient (CLI) | payer MEDICARE, SELFPAY ==
[2021-10-02 08:58] VITALS: BMI 46.1
[2025-05-03 09:25] VITALS: BP 141/67; PULSE 85; RESP 16; TEMP 36.4; O2SAT 97
--- NOTE | 2025-05-03 09:41 | PC.NURSE ---
Patient has continuous blood sugar monitoring device. Patient's blood sugar @ 0920 was 133.
[2025-05-03 09:46] VITALS: BP 152/75; PULSE 95; RESP 18; O2SAT 94
[2025-05-03] MEDS: LIDOCAINE 1% (PF) 5 ML INJ (09:48)
[2025-05-03 09:50] VITALS: BP 139/69; PULSE 81; RESP 18; O2SAT 96
[2025-05-03 09:55] VITALS: BP 126/89; PULSE 87; RESP 16; O2SAT 97
--- NOTE | 2025-05-03 12:31 | PM.PROC.IR.1 ---
Date/Time/Diagnoses Date of procedure: 05/03/25 Time of procedure: 10:00 Pre-procedure diagnosis: Lumbar stenosis, radiculopathy Post-procedure diagnosis: same Procedure Notes Procedure: Interlaminar epidural steroid injection L5-S1 Indications: Lumbar stenosis, radiculopathy Physician: Morales Lott Total sedation minutes: 0 Complications: none Procedure in detail & Post-procedure care: Patient is here for the planned procedure today as noted. No significant change since the last office visit. For additional clinical scenario please see those office notes. Focused exam: Vital signs reviewed as charted on intake. Gen: Well developed. No acute distress. CV: RRR, no M/R/G Chest: Non-labored breathing, CTAB. Psych: Alert and well-oriented. Mood/Affect: normal. Patient suitable for the planned procedure today: Yes === The following procedure was performed in the office today: Lumbar Epidural Steroid Injection with fluoroscopic guidance - Interlaminar approach ([id number]) Levels Treated: [L5-S1] Approach: interlaminar Soft tissue: [1% lidocaine 2 mL] Test dose: [1% lidocaine 1 mL] Injectate: 1 mL of Depo-Medrol (40mg/mL) in 1 mL 1% lidocaine and 2 mL normal saline Fluoroscopy Agent: Isovue 300-M 1.5 mL Notes: History IDDM, A1c 7.3, blood glucose this morning 133. We discussed the associated risks and she would like to proceed. She will monitor blood glucose levels carefully and report any significant elevation. Modified steroid dosage utilized. 4.5 in 20 gauge Touhy needle utilized and adequate. Right paramedian approach utilized. Preprocedure pain 7/10, postprocedure pain 2/10. Procedure: After discussing the risks, benefits, and alternatives to the procedure, the patient expressed understanding and wished to proceed. The risks include but are not limited to infection, allergic reaction, nerve damage, stroke, paralysis, epidural hematoma, syncope, headache, respiratory or cardiac arrest, spinal cord injury, and scar formation. Informed consent was obtained and all patient questions were answered. The patient was brought to the procedure suite and placed in the prone position. A pre-procedural pause was conducted to verify: correct patient identity, procedure to be performed and as applicable, correct side and site, correct patient position, and any special requirements. Using a paramedian approach from the side noted above, the region overlying the target was localized under fluoroscopic visualization and the soft tissues overlying this structure were infiltrated with the anesthetic listed above. With fluoroscopic guidance, a #20 gauge Tuohy needle (unless otherwise noted) was inserted into the epidural space using a paramedian approach. The epidural space was localized utilizing intermittent multiplanar fluoroscopic guidance and loss of resistance technique. After negative aspiration, the contrast noted above was injected into the epidural space and the flow of contrast was observed, confirming epidural spread without evidence of intravascular or intrathecal spread. Multi-planar radiographs were obtained for documentation purposes. A test dose of lidocaine was injected into the above noted epidural space, and the patient was observed for 30-60 seconds. No sensory deficits were reported and normal lower extremity motor function was noted. Subsequently, the injectate as noted above was administered into the level noted above. The patient tolerated the procedure well and was discharged after an appropriate period of observation. If there are any complications, the patient was instructed to call us. The patient is to follow-up with the requesting provider in 2-3 weeks. This note was compiled using voice recognition software and therefore may contain typos. Please contact the author with any questions or concerns.
== END 2025-05-03 10:05 | disposition home or self-care (01) ==
LOC: RAD 09:16
PROVIDERS: PCP Family Medicine; Referring Provider Physical Medicine & Rehabilitation; Visit Provider Physical Medicine & Rehabilitation
DX: M54.17 Radiculopathy, lumbosacral region (principal); M48.062 Spinal stenosis, lumbar region with neurogenic claudication
CPT/HCPCS: 62323; J1010